=== PATIENT | female | born 1985 | race Two or more races ===

== ENCOUNTER → 2020-03-02 08:10 | Outpatient (BNVA) | payer OTHER, SELFPAY | PROVIDERS: PCP Family Medicine Geriatric Medicine; Visit Provider Surgery | DX: Z76.89 Persons encountering health services in other specified circumstances (principal) ==

== ENCOUNTER 2020-03-02 12:14 | Outpatient (REF) | payer OTHER, SELFPAY ==
--- NOTE | 2020-03-02 12:25 | ECG_ITS ---
Test Reason : CP Blood Pressure : / mmHG Vent. Rate : 070 BPM Atrial Rate : 070 BPM P-R Int : 128 ms QRS Dur : 096 ms QT Int : 406 ms P-R-T Axes : 038 010 016 degrees QTc Int : 438 ms Normal sinus rhythm Normal ECG No previous ECGs available Referred By: Dve Barlow Electronically Signed By:FRANCK BLAND MD
--- NOTE | 2020-03-02 12:45 | XR_ITS ---
EXAMINATION: XR CHEST CLINICAL INFORMATION: Multilobar obesity COMPARISON: None TECHNIQUE: 2 views of the chest were obtained. FINDINGS: No significant abnormality is noted involving the heart, lungs, mediastinum, bony thorax or soft tissues. XR/XR chest 2V IMPRESSION: No acute disease.
[2020-03-02 13:21] LABS: MANUAL DIFF FLAG NO
[2020-03-02 13:45] LABS: Basophils Percent Auto 0.4 % (0-2); Eosinophils Absolute Auto 0.2 X10*3/uL (0.0-0.4); Hematocrit 38.8 % (37-47); Hemoglobin 12.4 g/dl (12.0-16.0); Imm Gran Abs Auto 0.03 X10*3/uL (0.00-0.03); Imm Gran Pct Auto 0.3 % (0.0-0.4); Lymphocytes Absolute Auto 3.3 X10*3/uL (1.2-4.9); Lymphocytes Percent Auto 34.7 % (20-40); Mean Corpuscular Hemoglobin 28.2 pg (27.0-33.0); Mean Corpuscular Volume 88.2 fL (80-98); Mean Platelet Volume 11.1 fL (9.4-12.3); Monocytes Absolute Auto 0.7 X10*3/uL (0.1-1.2); Monocytes Percent Auto 7.4 % (2-11); Neutrophils Absolute Auto 5.2 X10*3/uL (2.0-8.3); Neutrophils Percent Auto 55.2 % (45-73); Platelet Count 280 X10*3/uL (160-400); Red Cell Distribution Width 13.2 % (11.0-16.0); White Blood Count 9.4 X10*3/uL (4.8-10.8)
[2020-03-02 13:49] LABS: Estimated Average Glucose 108 mg/dL; Hemoglobin A1c % 5.4 %
[2020-03-02 14:02] LABS: Alanine Aminotransferase 11 U/L (0-31); Albumin Level 3.9 g/dL (3.5-5.0); Alkaline Phosphatase 71 U/L (39-117); Anion Gap 12 (12-20); Aspartate Amino Transferase 16 U/L (5-31); Bilirubin Total 0.9 mg/dL (0.0-1.0); Blood Urea Nitrogen 12 mg/dL (9-16); C Reactive Protein 0.62 mg/dL (< or = 0.50); Calcium 8.8 mg/dL (8.4-10.2); Carbon Dioxide 28 mmol/L (22-29); Chloride 104 mmol/L (96-108); Cholesterol 221 mg/dL; Estimated Glomerular Filt Rate > 60; Glucose Random 94 mg/dL (60-115); HDL Cholesterol 54 mg/dL; LDL Cholesterol Calculated 152 mg/dl; Potassium 3.7 mmol/l (3.3-5.1); Sodium 140 mmol/L (135-145); Total Protein 6.9 g/dL (6.5-8.0); Triglycerides 78 mg/dL
[2020-03-02 14:26] LABS: Ferritin 9 ng/mL (10-122); Vitamin D 25-OH Total 20.8 ng/mL (>30)
[2020-03-02 14:27] LABS: TSH reflex Free T4 1.08 mIU/mL (0.32-4.0)
[2020-03-02 14:32] LABS: Folate 14.4 ng/mL (> or = 4.0); Vitamin B12 293 pg/mL (200-900)
[2020-03-03 12:08] LABS: Insulin Level Total 8.6 uIU/mL
[2020-03-03 16:52] LABS: Calcium (PTHI) 9.1 mg/dL (8.6-10.2); PTHI 69 pg/mL (14-64)
[2020-03-05 16:07] LABS: Zinc 64 mcg/dL (60-130)
[2020-03-07 06:33] LABS: Vitamin B1 8 nmol/L (8-30)
[2020-03-08 17:47] LABS: Vitamin A 32 mcg/dL (38-98)
== END 2020-03-02 12:15 | disposition home or self-care (01) ==
LOC: HO.LAB 12:14
PROVIDERS: Visit Provider Surgery
DX: E66.01 Morbid (severe) obesity due to excess calories (principal); J45.909 Unspecified asthma, uncomplicated; K21.9 Gastro-esophageal reflux disease without esophagitis
CPT/HCPCS: 36415; 71046; 80053; 80061; 82306; 82607; 82728; 82746; 83036; 83525; 83970; 84425; 84443; 84590; 84630; 85025; 86140; 93005

== ENCOUNTER → 2020-03-22 08:20 | Outpatient (BNVA) | payer OTHER, SELFPAY | PROVIDERS: Visit Provider Surgery ==

== ENCOUNTER → 2020-03-31 08:03 | Outpatient (BNVA) | payer OTHER, SELFPAY | PROVIDERS: Visit Provider Dietitian, Registered ==

== ENCOUNTER 2020-04-19 08:23 | Outpatient (REF) | payer OTHER, SELFPAY ==
--- NOTE | ~2020-04-19 | FL_ITS ---
EXAMINATION: XR GI SERIES CLINICAL INFORMATION: Obesity. History of gastric sleeve procedure. COMPARISON: None. TECHNIQUE: Upper GI was performed using thin and thick barium and effervescent granules. FINDINGS: Esophageal motility is normal. The stomach is normal appearing. Expected postsurgical changes to the stomach from gastric sleeve procedure is not appreciated. No fold thickening, mass, ulcer or stricture is seen. There is a small sliding-type hiatal hernia. There is a Schatzki ring. There is a small diverticulum as well. There is severe gastroesophageal reflux. FLUOROSCOPY TIME: 1.6 minutes. DOSE AREA PRODUCT: 20 Gy-cm2. TOTAL DOSE: 67 mGy. IMAGES: 37 saved fluoroscopic images. FL/FL upper GI series IMPRESSION: Normal-appearing stomach. Expected postsurgical changes to the stomach post gastric sleeve procedure not appreciated. Small sliding-type hiatal with Schatzki ring and small diverticulum. Severe gastroesophageal reflux.
--- NOTE | ~2020-04-19 | US_ITS ---
EXAMINATION: US COMPLETE ABDOMEN WITH LIVER ELASTOGRAPHY CLINICAL INFORMATION: Qmdusrqd-[id number]-pwjygk obesity due to excessive calories. COMPARISON: None. TECHNIQUE: Real-time imaging of the abdominal viscera. Noninvasive ultrasound liver fibrosis assessment is performed using Homero ElastPQ point quantification shear wave elastography (pSWE) with a C5-2 MHz transducer. Multiple elastography samples are obtained. FINDINGS: PANCREAS: Normal. The visualized pancreatic head and body are normal in appearance. The remainder of the pancreas is obscured from visualization by the overlying bowel gas. ABDOMINAL AORTA: The proximal, middle, and distal aortic segments are normal in caliber. INFERIOR VENA CAVA: Visualized portions are normal. LIVER: The liver demonstrates normal size, contour and echogenicity. No focal lesion or intrahepatic biliary duct dilatation. The right lobe measures 14.8 cm in length. The left lobe measures 10.7 cm in length. There is normal hepatopedal flow seen in the portal vein on Doppler exam. Shear wave liver elastography median stiffness is 1.14 m/s (reference: normal median stiffness is 1.3 m/s or less). IQR/median stiffness to assess sampling precision is 0.32 (reference: good quality data set is IQR/median stiffness of 0.15 or less). GALLBLADDER: Normal. The gallbladder is physiologically distended without evidence of stones, sludge, polyps, wall thickening, or pericholecystic fluid. COMMON BILE DUCT: Normal in caliber measuring 0.5 cm in diameter. RIGHT KIDNEY: Normal. No hydronephrosis. No renal calculi or focal parenchymal lesions. The kidney measures 10.8 cm in maximum dimension. LEFT KIDNEY: Normal. No hydronephrosis. No renal calculi or focal parenchymal lesions. The kidney measures 11.6 cm in maximum dimension. SPLEEN: Normal. The spleen measures 11.3 cm in maximum dimension. FREE FLUID: None. US/US abdomen comp w elastography IMPRESSION: 1. Unremarkable ultrasound abdomen. 2. Liver elastography: Median stiffness of 1.14. Normal. REFERENCE: Society of Radiologists in Ultrasound Liver Stiffness Thresholds (2019): LIVER STIFFNESS THRESHOLDS: *Liver Stiffness equal or less than 1.3 m/s: High probability of being normal. *Liver Stiffness less than 1.7 m/s: In the absence of other known clinical signs, rules out compensated advanced chronic liver disease. *Liver Stiffness 1.7-2.1 m/s: Suggestive of compensated advanced chronic liver disease but need further test for confirmation. *Liver Stiffness over 2.1 m/s: Rules in compensated advanced chronic liver disease. *Liver Stiffness over 2.4 m/s: Suggestive of clinically significant portal hypertension. QUALITY OF DATA SET: *IQR/Median value equal or less than 0.15 implies a quality data set. *IQR/Median value over 0.15 implies a poor quality data set. SIGNIFICANT CHANGE FROM PRIOR EXAM: Significant change if liver stiffness measurement is 10% or greater from prior exam. OTHER CONSIDERATIONS: The stage of liver fibrosis may be overestimated in the setting of acute hepatitis, liver inflammation, elevated liver function tests, hepatic vascular congestion, obstructive cholestasis, non-fasting state, and infiltrative diseases such as amyloidosis and lymphoma. In some patients with NAFLD, the liver stiffness thresholds for compensated advanced chronic liver disease may be lower. In causes other than viral hepatitis and NAFLD, liver stiffness thresholds are not well established.
== END 2020-04-19 08:24 | disposition home or self-care (01) ==
LOC: HO.US 08:23
PROVIDERS: Visit Provider Surgery
DX: Z01.818 Encounter for other preprocedural examination (principal); E66.01 Morbid (severe) obesity due to excess calories; K21.9 Gastro-esophageal reflux disease without esophagitis; J45.909 Unspecified asthma, uncomplicated
CPT/HCPCS: 74240; 76705; 76981

== ENCOUNTER → 2020-04-24 09:02 | Outpatient (BNVA) | payer OTHER, SELFPAY | PROVIDERS: Visit Provider Physician Assistant ==

== ENCOUNTER → 2020-04-25 08:18 | Outpatient (BNVA) | payer OTHER, SELFPAY | PROVIDERS: Visit Provider Dietitian, Registered ==

== ENCOUNTER 2020-04-27 08:37 | Outpatient (REF) | payer OTHER, SELFPAY ==
[2020-04-29 15:12] LABS: H Pylori Breath Test NOT DETECTED (NOT DETECTED)
== END 2020-04-27 08:38 | disposition home or self-care (01) ==
LOC: HO.LNP 08:37
PROVIDERS: Visit Provider Surgery
DX: Z11.0 Encounter for screening for intestinal infectious diseases (principal)
CPT/HCPCS: 83013; 99211

== ENCOUNTER → 2020-05-01 15:40 | Outpatient (BNVA) | payer OTHER, SELFPAY | PROVIDERS: Visit Provider Physician Assistant ==

== ENCOUNTER → 2020-05-08 16:07 | Outpatient (BNVA) | payer OTHER, SELFPAY | PROVIDERS: Visit Provider Physician Assistant ==

== ENCOUNTER → 2020-05-12 08:05 | Outpatient (BNVA) | payer OTHER, SELFPAY | PROVIDERS: Visit Provider Surgery ==

== ENCOUNTER 2020-05-18 08:11 | Day surgery (SDC) | payer OTHER, SELFPAY ==
--- NOTE | 2020-05-17 08:58 | HO.ANESPROP2 ---
Documented by User: Anabelle Pinto 05/17/20 08:59 HPI - Anesthesia Eval Consult details Narrative: 34yo F for Upper Endoscopy PMFSH Active Problems Active Problems: All Active Problems (Updated 05/12/20 @ 08:32 by Dev Barlow MD) Diaphragmatic hernia (Acute) Vitamin D deficiency (Acute) Vitamin B12 deficiency (Acute) GERD (gastroesophageal reflux disease) (Acute) Asthma (Acute) Morbid (severe) obesity due to excess calories (Acute) Past Medical History Medical History Asthma GERD (gastroesophageal reflux disease) Morbid (severe) obesity due to excess calories Sleep apnea Family History Family History Mother Depressed Anxiety Asthma Father No problems noted. Brother No problems noted. Brother Asthma Brother No problems noted. Son No problems noted. Daughter Asthma Anxiety Surgical History Surgical History History of sleeve gastrectomy Hx of appendectomy Hx of cholecystectomy Hx of tubal ligation Social History Social History Alcohol intake: never Smoking Status: Never smoker Use of substances other than those prescribed or required for medical reasons: No Advance Directives: No Advance Directives Information Provided: Yes Recently lost weight without trying: No Meds Allergies Allergy/AdvReac Type Severity Reaction Status Date / Time No Known Allergies Allergy Verified 03/02/20 10:48 Home Medications Medication Instructions Recorded Confirmed Last Taken Type albuterol sulfate 90 mcg/actuation 2 puff INHALATION Q6H PRN 03/02/20 03/02/20 Unknown History aerosol inhaler omeprazole 40 mg capsule,delayed 40 mg PO DAILY 03/02/20 03/02/20 Unknown History release Exam Exam Date and Time: May 17, 2020 0858 Narrative Narrative: EKG 02/2020 Vent. Rate : 070 BPM Atrial Rate : 070 BPM P-R Int : 128 ms QRS Dur : 096 ms QT Int : 406 ms P-R-T Axes : 038 010 016 degrees QTc Int : 438 ms Normal sinus rhythm Normal ECG No previous ECGs available Assessment and Plan Assessment Anesthesia Assessment: Chart Reviewed Documented by User: Jack Upton MD 05/18/20 09:30 PMFSH Past Medical History Medical History Asthma GERD (gastroesophageal reflux disease) Morbid (severe) obesity due to excess calories Sleep apnea Family History Family History Mother Depressed Anxiety Asthma Father No problems noted. Brother No problems noted. Brother Asthma Brother No problems noted. Son No problems noted. Daughter Asthma Anxiety Surgical History Surgical History History of sleeve gastrectomy Hx of appendectomy Hx of cholecystectomy Hx of tubal ligation Social History Social History Alcohol intake: never Smoking Status: Never smoker Use of substances other than those prescribed or required for medical reasons: No Advance Directives: No Advance Directives Information Provided: Yes Recently lost weight without trying: No Meds Allergies Allergy/AdvReac Type Severity Reaction Status Date / Time No Known Allergies Allergy Verified 03/02/20 10:48 Home Medications Medication Instructions Recorded Confirmed Last Taken Type albuterol sulfate 90 mcg/actuation 2 puff INHALATION Q6H PRN 03/02/20 03/02/20 Unknown History aerosol inhaler omeprazole 40 mg capsule,delayed 40 mg PO DAILY 03/02/20 03/02/20 Unknown History release Exam Airway Mallampati Class: I TM Dist: >3cm Neck ROM: Full Loose/Missing/Broken Teeth: Yes Heart: RRR Lungs: NL Assessment and Plan Assessment Anesthesia Assessment: Anesthesia Plan Discussed and Chart Reviewed Final Anesthetic Review NPO: Yes ASA Class: III Final Preanesthetic Review: No Changes in Pt Med Stat, Meds/Allgs Chart Reviewed, Consent Obtained/Reviewed and Anes Risks/Benef Reviewed Patient Risk: Intermediate Procedure Risk: Low Anesthetic Plan Anesthetic Plan: MAC: Disposition: Standard PACU
--- NOTE | 2020-05-18 00:09 | MHC.SHP ---
Pre-Procedural Eval Section A The patient is an INPATIENT: No The History & Physical has been completed within 30 days and I have reviewed it.: Yes Section B Chief Complaint: reflux disease Details of Present Illness: GERD Relevant Family History (Specify if Yes): No Relevant Social History: None Present Medications: see Short Stay Collaborative assessment Medical History: No relevant PMH History of Previous Operations: Relevant previous surgery/procedure and date(s) (Sleeve gastrectomy) Allergies: Allergies Allergy/AdvReac Type Severity Reaction Status Date / Time No Known Allergies Allergy Verified 03/02/20 10:48 Review of Systems Sugical H&P ROS: Negative: Constitution, Cardiovascular, Respiratory, Neurological, Psychiatric, Hem-Onc, Allergic/Immunologic, Gastrointestinal, Genitourinary, Musculoskeletal, Integumentary, Endocrine and Eyes/Ears/Nose/Throat Exam Surgical H&P Exam: Normal: HEENT, Normal: Heart, Normal: Lungs, Normal: Extremities, Normal: Abdomen, Normal: Skin and Normal: Neurological Plan Diagnosis/Plan: Unchanged (EGD to assess reflux) I have reviewed the history and physical and performed a pertinent physical examination on my patient. No changes have occurred unless specified.
[2020-05-18 08:26] VITALS: BMI 43.5
[2020-05-18 08:29] VITALS: BP 106/69; PULSE 67; RESP 16; TEMP 36.9; O2SAT 98
[2020-05-18 08:55] LABS: COVID-19 Test Negative (Negative)
[2020-05-18] MEDS: Lactated Ringers 1,000 ML 80 ML IVCONT (08:59)
[2020-05-18 10:12] VITALS: BP 121/68; PULSE 76; RESP 16; TEMP 36.5; O2SAT 100
--- NOTE | 2020-05-18 10:17 | PM.OP ---
Brief Operative Note Date of Service: 05/18/20 Pre-op diagnosis: GERD, s/p sleeve gastrectomy Post-op diagnosis: same (3cm hiatal hernia) Procedure: PROCEDURE DATE: 05/18/2020 PREOPERATIVE DIAGNOSIS: GERD, s/p sleeve gastrectomy POSTOPERATIVE DIAGNOSIS: Same as above. 1) small hiatal hernia PROCEDURE: Cuikeloj-lanaid-myqbvlweybsj with biopsies Surgeon: Alphonso Barlow M.D.. Ph.D. Computer Sciences Professor: None Anesthesia: IV sedation Estimated blood loss: Minimal FINDINGS AND PROCEDURE: OPERATIVE INDICATIONS: The patient is a 34 year old female known to me who underwent a laparoscopic sleeve gastrectomy. The patient had inadequate weight loss so far and complains of severe GERD. The patient was doing very well but has recently been complaining of GERD. Based on this information I recommended an upper endoscopy to evaluate the patient's symptoms. Risks and complications of the surgery were discussed with the patient in advance particularly the possibility of perforation or bleeding that may require surgical intervention. The patient understood the risks and was in agreement with the plan. PROCEDURE: After informed consent was obtained by the patient, the patient was transferred to the Operating Room and was placed in the supine position. After successful induction of IV sedation, a mouth block was inserted and the patient was placed in the left lateral decubitus position. An upper endoscopy was performed next, the oropharynx and esophagus appeared within the normal limits. There was a 3cm hiatal hernia. The z-line was smooth. Two biopsies were obtained from the distal esophagus 2-3 cm proximal to the GE junction and two additional biopsies from the GE junction. The sleeve was entered and it appeared to be of normal size. There was mild gastritis at distal antrum. There was no stricture or ulcer. Biopsies were obtained from the proximal sleeve as well as the distal antrum. No significant bleeding was noted from any of the biopsy sites. The scope was then advanced into the duodenum which appeared to be normal as well. At that point the duodenum and the sleeve were decompressed and the scope was withdrawn from the patient's mouth. The patient extubated and was transferred in stable condition to the Recovery Room for further care. I was present and performed all steps of the procedure. There were no residents to assist with this case. Alphonso Barlow M.D., Ph.D. Surgeon: Dev Barlow MD Anesthesia: MAC Estimated blood loss (mL): 0 IV fluids (mL): 300 Urine output (mL): 0 (No [place] to record) Pathology: other (1) GEJ x2, distal esophagus x2, sleeve x1, antrum x1) Condition: stable Disposition: PACU
[2020-05-18 10:37] VITALS: BP 123/68; PULSE 66; RESP 18; TEMP 36.3; O2SAT 99
== END 2020-05-18 11:17 | disposition home or self-care (01) ==
PROVIDERS: Visit Provider Surgery
PROC: 0DJ08ZZ Inspection of Upper Intestinal Tract, Via Natural or Artificial Opening Endoscopic (ICD-10-PCS; CPT 43235; principal; 2020-05-18 09:20)
DX: K21.9 Gastro-esophageal reflux disease without esophagitis (principal); K44.9 Diaphragmatic hernia without obstruction or gangrene; K20.0 Eosinophilic esophagitis; E66.01 Morbid (severe) obesity due to excess calories; E55.9 Vitamin D deficiency, unspecified; E53.8 Deficiency of other specified B group vitamins; Z98.84 Bariatric surgery status; J45.909 Unspecified asthma, uncomplicated; Z90.49 Acquired absence of other specified parts of digestive tract; Z79.899 Other long term (current) drug therapy
CPT/HCPCS: 43239; 36415; 87635; 88305; 88342

== ENCOUNTER → 2020-06-02 08:19 | Outpatient (BNVA) | payer OTHER, SELFPAY | PROVIDERS: Visit Provider Surgery ==

== ENCOUNTER → 2020-07-03 08:15 | Outpatient (BNVA) | payer OTHER, SELFPAY | PROVIDERS: Visit Provider Surgery ==

== ENCOUNTER → 2020-09-11 07:41 | Outpatient (BNVA) | payer OTHER, SELFPAY | PROVIDERS: Visit Provider Surgery ==

== ENCOUNTER → 2020-09-29 08:52 | Outpatient (BNVA) | payer OTHER, SELFPAY | PROVIDERS: Visit Provider Physician Assistant ==

== ENCOUNTER 2020-10-10 02:36 | Inpatient (IN) | payer OTHER, SELFPAY ==
[2020-09-29 12:43] LABS: MANUAL DIFF FLAG NO
[2020-09-29 12:56] LABS: Basophils Percent Auto 0.5 % (0-2); Eosinophils Absolute Auto 0.2 X10*3/uL (0.0-0.4); Hematocrit 42.5 % (37-47); Hemoglobin 13.7 g/dl (12.0-16.0); Imm Gran Abs Auto 0.02 X10*3/uL (0.00-0.03); Imm Gran Pct Auto 0.3 % (0.0-0.4); Lymphocytes Absolute Auto 2.7 X10*3/uL (1.2-4.9); Lymphocytes Percent Auto 36.9 % (20-40); Mean Corpuscular HGB Conc 32.2 g/dl (31.0-35.0); Mean Corpuscular Hemoglobin 28.8 pg (27.0-33.0); Mean Corpuscular Volume 89.5 fL (80-98); Mean Platelet Volume 11.5 fL (9.4-12.3); Monocytes Absolute Auto 0.6 X10*3/uL (0.1-1.2); Monocytes Percent Auto 7.5 % (2-11); Neutrophils Absolute Auto 3.9 X10*3/uL (2.0-8.3); Neutrophils Percent Auto 52.8 % (45-73); Platelet Count 267 X10*3/uL (160-400); Red Blood Count 4.75 X10*6/uL (4.20-5.50); Red Cell Distribution Width 14.1 % (11.0-16.0); White Blood Count 7.4 X10*3/uL (4.8-10.8)
[2020-09-29 12:58] LABS: INTERNATIONAL NORM RATIO 1.2 (0.9-1.1); Prothrombin Time 13.1 SEC (9.9-13.0)
[2020-09-29 13:00] LABS: Estimated Average Glucose 105 mg/dL; Hemoglobin A1c % 5.3 %
[2020-09-29 13:01] LABS: Partial Thromboplastin Time 35.4 SEC (24.1-38.0)
[2020-09-29 13:28] LABS: Alanine Aminotransferase 17 U/L (0-31); Albumin Level 4.2 g/dL (3.5-5.0); Alkaline Phosphatase 71 U/L (39-117); Anion Gap 14 (12-20); Aspartate Amino Transferase 17 U/L (5-31); Bilirubin Total 1.2 mg/dL (0.0-1.0); Blood Urea Nitrogen 11 mg/dL (9-16); C Reactive Protein 0.64 mg/dL (< or = 0.50); Calcium 9.5 mg/dL (8.4-10.2); Carbon Dioxide 25 mmol/L (22-29); Chloride 104 mmol/L (96-108); Cholesterol 222 mg/dL; Estimated Glomerular Filt Rate > 60; Glucose Random 94 mg/dL (60-115); HDL Cholesterol 40 mg/dL; LDL Cholesterol Calculated 165 mg/dl; Sodium 139 mmol/L (135-145); Total Protein 7.4 g/dL (6.5-8.0); Triglycerides 86 mg/dL
[2020-09-29 13:48] LABS: TSH reflex Free T4 1.28 uIU/mL (0.32-4.0)
[2020-10-02 17:57] LABS: Insulin Level Total 4.1 uIU/mL
[2020-10-03 08:58] VITALS: BMI 38.6
--- NOTE | 2020-10-09 08:47 | P.CONAN_ITS ---
Documented by User: Anabelle Pinto NP 10/09/20 08:48 HPI - Anesthesia Eval Consult details Narrative: 35yo F for Gastric Bypass Laparoscopic, possible diaphragmatic hernia,possible ventral hernia,possible open s/p gastric sleeve 2014 [facility] Active Problems Active Problems: All Active Problems (Updated 10/03/20 @ 08:37 by Anna Torrez, JB) Vitamin B12 deficiency (Acute) Vitamin D deficiency (Acute) Diaphragmatic hernia (Acute) Esophagitis determined by biopsy (Acute) Iron deficiency (Acute) Obesity (Acute) BMI 39.0-39.9,adult (Acute) Preprocedural examination (Acute) GERD (gastroesophageal reflux disease) (Acute) Asthma (Acute) Morbid (severe) obesity due to excess calories (Acute) Past Medical History Medical History (Updated 10/10/20 @ 07:34 by Jessi Arellano MD) Asthma COVID-19 vaccine series completed GERD (gastroesophageal reflux disease) Morbid (severe) obesity due to excess calories Sleep apnea Family History Family History Mother Depressed Anxiety Asthma Father No problems noted. Brother No problems noted. Brother Asthma Brother No problems noted. Son No problems noted. Daughter Asthma Anxiety Surgical History Surgical History (Updated 10/10/20 @ 07:35 by Jessi Arellano MD) H/O: History of esophagogastroduodenoscopy (EGD) History of sleeve gastrectomy Hx of appendectomy Hx of cholecystectomy Hx of dilation and curettage Hx of tubal ligation Social History Social History Are you a primary rn patient care to a significant other at home: Yes (Child 3 yrs old) Do you presently have visiting nurse or other home services: No Alcohol intake: never Patient Tobacco Use Status: Former Tobacco user Use of substances other than those prescribed or required for medical reasons: No Have you been hit, kicked, punched, or otherwise hurt by someone within the past year? If so, by whom?: No Are you DNR?: No Advance Directives: No Advance Directives Information Provided: No Advance Directives on File: No Patient : No FDLMP: 01/2020 : No Poor oral hygiene: No Meds Allergies Allergy/AdvReac Type Severity Reaction Status Date / Time No Known Allergies Allergy Verified 10/10/20 06:34 Home Medications Medication Instructions Recorded Confirmed Last Taken Type albuterol sulfate 90 mcg/actuation 2 puff INHALATION Q6H PRN 03/02/20 10/02/20 Unknown History aerosol inhaler omeprazole 40 mg capsule,delayed 40 mg PO DAILY 03/02/20 09/11/20 Unknown History release Exam Exam Date and Time: October 09, 2020 0847 Height,Weight and Vital Signs: Height 5 ft 3 in Weight 98.883 kg Pertinent Lab Results Pertinent Lab Results: Laboratory Tests 09/29/20 09/29/20 09/29/20 11:34 11:34 11:34 WBC 7.4 RBC 4.75 Hgb 13.7 Hct 42.5 MCV 89.5 MCH 28.8 MCHC 32.2 RDW 14.1 Plt Count 267 MPV 11.5 Immature Gran % (Auto) 0.3 Neut % (Auto) 52.8 Lymph % (Auto) 36.9 [place] % (Auto) 7.5 Eos % (Auto) 2.0 Baso % (Auto) 0.5 Lymph # (Auto) 2.7 [place] # (Auto) 0.6 Eos # (Auto) 0.2 Baso # (Auto) 0.0 Abs Immat Gran (auto) 0.02 Absolute Neuts (auto) 3.9 Absolute Nucleated RBC 0.000 Nucleated RBC % (auto) 0.0 PT 13.1 H INR 1.2 H APTT 35.4 Sodium 139 Potassium 4.0 Chloride 104 Carbon Dioxide 25 Anion Gap 14 BUN 11 Creatinine 0.91 Estim Creat Clear Calc TNP Estimated GFR > 60 Random Glucose 94 Estimat Average Glucose Hemoglobin A1c % Total Insulin Calcium 9.5 D Total Bilirubin 1.2 H AST 17 ALT 17 Alkaline Phosphatase 71 C-Reactive Protein 0.64 H Total Protein 7.4 Albumin 4.2 Triglycerides 86 Cholesterol 222 LDL Cholesterol, Calc 165 HDL Cholesterol 40 D TSH 1.28 Blood Type Antibody Screen 09/29/20 09/29/20 09/29/20 11:34 11:34 11:38 WBC RBC Hgb Hct MCV MCH MCHC RDW Plt Count MPV Immature Gran % (Auto) Neut % (Auto) Lymph % (Auto) [place] % (Auto) Eos % (Auto) Baso % (Auto) Lymph # (Auto) [place] # (Auto) Eos # (Auto) Baso # (Auto) Abs Immat Gran (auto) Absolute Neuts (auto) Absolute Nucleated RBC Nucleated RBC % (auto) PT INR APTT Sodium Potassium Chloride Carbon Dioxide Anion Gap BUN Creatinine Estim Creat Clear Calc Estimated GFR Random Glucose Estimat Average Glucose 105 Hemoglobin A1c % 5.3 Total Insulin 4.1 Calcium Total Bilirubin AST ALT Alkaline Phosphatase C-Reactive Protein Total Protein Albumin Triglycerides Cholesterol LDL Cholesterol, Calc HDL Cholesterol TSH Blood Type A Positive Antibody Screen NEGATIVE Narrative Narrative: EKG 05/2020 Vent. Rate : 070 BPM ? ? Atrial Rate : 070 BPM ?? P-R Int : 128 ms? QRS Dur : 096 ms ? ? QT Int : 406 ms ? ? ? P-R-T Axes : 038 010 016 degrees ?? QTc Int : 438 ms ? Normal sinus rhythm Normal ECG No previous ECGs available Assessment and Plan Assessment Anesthesia Assessment: Chart Reviewed Documented by User: Jack Upton MD 10/10/20 07:37 [facility] Past Medical History Medical History (Updated 10/10/20 @ 07:34 by Jessi Arellano MD) Asthma COVID-19 vaccine series completed GERD (gastroesophageal reflux disease) Morbid (severe) obesity due to excess calories Sleep apnea Family History Family History Mother Depressed Anxiety Asthma Father No problems noted. Brother No problems noted. Brother Asthma Brother No problems noted. Son No problems noted. Daughter Asthma Anxiety Surgical History Surgical History (Updated 10/10/20 @ 07:35 by Jessi Arellano MD) H/O: History of esophagogastroduodenoscopy (EGD) History of sleeve gastrectomy Hx of appendectomy Hx of cholecystectomy Hx of dilation and curettage Hx of tubal ligation Social History Social History Are you a primary rn patient care to a significant other at home: Yes (Child 3 yrs old) Do you presently have visiting nurse or other home services: No Alcohol intake: never Patient Tobacco Use Status: Former Tobacco user Use of substances other than those prescribed or required for medical reasons: No Have you been hit, kicked, punched, or otherwise hurt by someone within the past year? If so, by whom?: No Are you DNR?: No Advance Directives: No Advance Directives Information Provided: No Advance Directives on File: No Patient : No FDLMP: 01/2020 : No Poor oral hygiene: No Meds Allergies Allergy/AdvReac Type Severity Reaction Status Date / Time No Known Allergies Allergy Verified 10/10/20 06:34 Home Medications Medication Instructions Recorded Confirmed Last Taken Type albuterol sulfate 90 mcg/actuation 2 puff INHALATION Q6H PRN 03/02/20 10/02/20 Unknown History aerosol inhaler omeprazole 40 mg capsule,delayed 40 mg PO DAILY 03/02/20 09/11/20 Unknown History release Exam Airway Mallampati Class: II TM Dist: >3cm Neck ROM: Full Loose/Missing/Broken Teeth: No Heart: RRR Assessment and Plan Assessment Anesthesia Assessment: Anesthesia Plan Discussed Final Anesthetic Review NPO: Yes ASA Class: III Final Preanesthetic Review: No Changes in Pt Med Stat, Meds/Allgs Chart Reviewed, Consent Obtained/Reviewed and Anes Risks/Benef Reviewed Patient Risk: Intermediate Procedure Risk: Low Anesthetic Plan Anesthetic Plan: GA Disposition: Standard PACU
--- NOTE | 2020-10-09 20:39 | MHC.SHP ---
Pre-Procedural Eval Section A Date of Service: 10/09/20 The patient is an INPATIENT: Yes The History & Physical has been completed within 30 days and I have reviewed it.: No Section B Chief Complaint: morbid obesity Relevant Family History (Specify if Yes): No Relevant Social History: None Present Medications: None Medical History: Significant History (GERD) History of Previous Operations: Relevant previous surgery/procedure and date(s) (sleeve gastrectomy) Allergies: Allergies Allergy/AdvReac Type Severity Reaction Status Date / Time No Known Allergies Allergy Verified 10/02/20 16:37 Review of Systems Sugical H&P ROS: Negative: Constitution, Cardiovascular, Respiratory, Neurological, Psychiatric, Hem-Onc, Allergic/Immunologic, Gastrointestinal, Genitourinary, Musculoskeletal, Integumentary, Endocrine and Eyes/Ears/Nose/Throat Exam Surgical H&P Exam: Normal: HEENT, Normal: Heart, Normal: Lungs, Normal: Extremities, Normal: Abdomen, Normal: Skin and Normal: Neurological Plan Diagnosis/Plan: Unchanged I have reviewed the history and physical and performed a pertinent physical examination on my patient. No changes have occurred unless specified.
[2020-10-10] VITALS (12 sets, daily range): BP systolic 127–154; BP diastolic 70–89; PULSE 74–95; RESP 16–20; TEMP 36.2–37.6; O2SAT 98–100
--- NOTE | ~2020-10-10 | FL_ITS ---
EXAMINATION: FL UPPER GI GASTROGRAFIN STUDY CLINICAL INFORMATION: Postop day 1 status post gastric bypass. COMPARISON: Upper GI 04/18/2020. TECHNIQUE: Routine upright Gastrografin upper GI exam was performed with 50/50 dilution. FINDINGS: Following oral administration of dilute Gastrografin, there is normal propagation of bolus from the oral cavity through the pharynx and the esophagus, into the small stomach and immediately into the small bowel loops without obstruction or narrowing. Post gastric bypass surgical changes with a Maori drainage catheter noted in the left epigastric region. No extravasation of Gastrografin seen. FLUOROSCOPY TIME: 0.9 minutes. DOSE AREA PRODUCT: 14.511 Gy-cm2. FL/FL upper GI w gastrografin IMPRESSION: Widely patent GE junction and gastrojejunal anastomosis status post gastric bypass. No extravasation seen. There is a Maori drainage catheter in the left epigastric region.
[2020-10-10 06:34] LABS: UPreg QC Valid YES; Urine Pregnancy NEGATIVE (NEGATIVE)
[2020-10-10 06:45] LABS: COVID-19 Test Negative (Negative)
[2020-10-10] MEDS: Lactated Ringers 1,000 ML 100 ML IVCONT (07:00)
[2020-10-10] MEDS: Lactated Ringers 1,000 ML 999 ML IV (07:00)
--- NOTE | 2020-10-10 12:14 | P.BOP_ITS ---
Brief Operative Note Date of Service: 10/10/20 Pre-op diagnosis: Severe obesity and comorbidities (see below) Post-op diagnosis: same (abdominal adhesions) Procedure: COMORBIDITIES: severe obesity with a BMI of 37.8 kg/m2, GERD, asthma, sleep apnea, diaphragmatic hernia Procedure: PROCEDURE: Upper endoscopy, extensive laparoscopic lysis of adhesions, diaphragmatic hernia repair, gastrectomy and laparoscopic Paco-en-Y gastric bypass with a total bypassed intestinal limb of 155cm INDICATIONS: This is a 35 year-old female with an initial BMI of 44.4 kg/m2 and associated comorbid conditions as described previously. After appropriate workup was performed and a 33.8lbs weight loss was achieved reducing the BMi to 37.8 kg/m2,, the patient was electively scheduled for laparoscopic, possibly open, gastric bypass. The risks and complications of the procedure were discussed with the patient in advance, particularly the possibility of ; pulmonary embolism; anastomotic leak; bleeding; bowel obstruction; cardiac, pulmonary, or renal complications; as well as long-term problems such as insufficient weight loss, vitamin deficiency, anastomotic strictures, or ulcers. The patient understood all the risks, and was in agreement to proceed with surgery. DESCRIPTION OF PROCEDURE: After informed consent was obtained from the patient, the patient was given preoperative antibiotics, and was transferred to the operating room. After successful induction of general anesthesia, a Stover catheter and pneumatic compressive devices were placed on both lower extremities. An upper endoscopy was performed next. The oropharynx and esophagus appeared to be within normal limits. There was a diaphragmatic hernia present consistent with the findings of the preoperative upper GI. The sleeve was entered. There was redundancy of the proximal sleeve laterally. Then after all fluid and air were suctioned and the stomach was fully decompressed, the scope was withdrawn and secured in the mid esophagus. The patient was then prepped and draped in the usual sterile manner, and abdominal access was established at the right upper quadrant with the Jacinto technique. A 12 mm blunt port was inserted, and the abdomen was insufflated with CO2 to a pressure of 15 mmHg. Under direct visualization, additional ports were placed, specifically a 5 and a 12 mm Versi-Step port, to the left and right of the umbilicus, two 5 mm ports to the left upper quadrant, and a 5 mm Versi-Step port to the right upper quadrant. Using the EndoClose suture passer device, I placed a #1 Polysorb tie across the falciform ligament in order to retract it up against the abdominal wall and prevent injury of the ligament with our instruments during the procedure. Following that, the patient was placed in a steep reverse Trendelenburg position. An additional 5 mm port was placed to the right flank for the Mediflex retractor that was used to retract the left lobe of the liver. There was adhesions between the previous sleeve and the greater omentum. Those w ere lysed with the Sonicbeat all the way to the GE junction. There were also posterior retrogastric adhesions that were also lysed and the sleeve was completely freed all the way to the lesser omentum. Adhesiolysis required 1 hour to complete. There was an obvious significant-sized hiatal hernia. I continued dissecting along the hiatus toward the left quintin and the angle of His. I fully mobilized the fat pad that was incarcerated in the hernia. I then continued by dissecting even further into the posterior retro-esophageal space all the way to the angle of His. I continued to mobilize the esophagus into the mediastinum circumferentially. Both vagal nerves were seen and preserved. At that point, I was able to have at least 3 to 5 cm of esophagus into the abdomen.? After I completely mobilized the esophagus from both the left and right quintin and I had a good mobilization of the esophagus circumferentially, I closed the hernia defect with three interrupted #0 Surgidac sutures using the Endo Stitch device, which two of which were placed posterior and one anterior to the esophagus. ? Adhesions on the anterior aspect of the sleeve at the area of planned resection were also freed so I can be able to identify better the stomach as well as the previous sleeve's staple line. The lesser omentum was divided with an Endo NIDHI-45 articulating wen load. A gastric pouch was created by resecting the previous sleeve transversely with Endo-NIDHI 60 purple load. The transection was made carefully to make sure that transection was appropriately oriented in relation to the previous sleeve's staple line to make sure that ischemic areas between stapler lines are not created. A second NIDHI-45 purple load was used to perform a sleeve resection of the proximal sleeve as it was redundant. A partial sleeve gastrectomy of the distal sleeve was also performed with another NIDHI-60 purple load. The staple line of the distal sleeve was reinforced with clips. Specimen was retrieved from the Jacinto port. The patient was then placed in supine position, and after we retracted the transverse colon and the omentum cephalad, we identified the ligament of Treitz. I counted 50 cm from the ligament of Treitz, and the small bowel and the mesentery were divided with an Endo NIDHI-60 white load. Using the ultrasonic device, we opened the peritoneum at the root of the mesentery further to gain extra mobility. A clip was used to sallie the proximal end of the divided bowel, the bilio-pancreatic end, which was run back to the ligament of Treitz to confirm that we had marked the correct side and I had done so. I then developed the mesocolic window slightly to the left and superior to the ligament of Treitz using the ultrasonic device. The apex of the Paco limb was identified. Following that, I grasped the apex of the Paco limb with an articulating bowel grasper, and after I made sure there was no twisting of the mesentery, it was delivered in a retrocolic, retrogastric fashion through the mesocolic window which I had previously made. Following that, I noted there was no tension between the gastric pouch and the Paco limb. Enterotomies were made at the apex of the pouch and the Paco limb, and the gastro-jejunostomy was made with an Endo NIDHI-45 ca load measured to be 4.5 cm in diameter. The enterotomy was closed using the Endo Stitch device in one layer of running 2-0 Polysorb suture in a Casi fashion starting from each corner of the enterotomy and tying the two ends together in the center of the enterotomy. The Paco limb was clamped with a bowel clamp approximately 15 cm from the gastro-jejunostomy, and a leak test was performed by submerging the anastomosis in saline and insufflating air off the scope into the pouch. There was no narrowing of the GE junction.? There was no air leak during the test. There was no significant ischemia of the mucosa of the gastric pouch or Paco limb. There was no bleeding from the suture or staple lines of the anastomosis, as well as the staple line of the gastric pouch which was clearly seen in its entirety. In addition, the anastomosis was patent, and we easily advanced the scope into the proximal Paco limb. With the scope pulled back at the esophagus, we reinforced the anastomosis circumferentially with multiple interrupted 2-0 Polysorb sutures in a Lembert type fashion using the Endo Stitch device. At that point, I pulled the endoscope back to the esophagus while we were decompressing the Paco limb and gastric pouch from any remaining air. At that point, the patient was placed in supine position, and after we reduced the Paco limb back into the abdomen, I counted 165 cm from the gastro- jejunostomy. An enterotomy was made there with the ultrasonic device. After a similar enterotomy was made at the apex of the bilio-pancreatic limb, the jejuno-jejunostomy was made with an Endo NIDHI-60 white load. The enterotomy was closed with another Endo NIDHI-60 white load after appropriate alignment with four interrupted 2-0 Surgidac sutures. Two anti-obstruction sutures were placed next between the staple line of the bilio-pancreatic limb and the mesentery of the Paco limb distal from the anastomosis to prevent kinking of the anastomosis. We then closed the small bowel mesenteric defect in a running fashion using a running 2-0 Surgidac suture using the EndoStitch device. I checked the anastomosis at the end. The jejuno-jejunostomy was patent. The Paco limb was not narrowed. The staple lines were intact, viable, without evidence of any ischemia, bleeding, or any open areas, and the entire anastomosis was sitting nicely without tension, narrowing, or kinking. I then closed the Camacho's defect with one interrupted 2-0 Surgidac suture in a U-type fashion and then the mesocolic defect with four interrupted 2-0 Sofsilk sutures in a U-type fashion.? The Paco limb was clamped 20 cm inferior to the mesocolic window and another endoscopy was performed. I could easily pass the gastroscope through the gastro-jejunostomy and mesocolic window without any narrowing, kinking, or evidence of bleeding or ischemia. At that point the gastroscope was withdrawn from the patient?s mouth while we were decompressing the bowel and the stomach from any remaining air. I ran back the Paco limb from the mesocolic window to the jejuno-jejunostomy which appeared to be normal without any twisting or kinking. All blood clots were suctioned. We carefully positioned the transverse colon epiploic appendages to the root of the small bowel mesentery to prevent any adhesions between them and the anastomosis that could lead to an internal hernia. I then placed the patient back in a steep reverse Trendelenburg position. I looked into the lesser sac to see how the Paco limb was situating and it was situating well. There was no bleeding from the suture lines of the remnant, angle of His, and gastric pouch, as well as from the mesentery of the Paco limb. At this point I placed a 10 mm AYAD drain underneath the gastro-jejunostomy and we secured the skin level with an #0 Sofsilk suture. The Mediflex retractor was removed, and the undersurface of the liver was inspected and there was no bleeding. The patient was placed in supine position. I closed the fascial defect of periumbilical 12 mm port site laparoscopically with the EndoClose suture passer device using #1 Polysorb suture and a #1 Polysorb suture in a figure of eight fashion for the Jacinto port. Then 100 cc 0.25 % Marcaine and 1% lidocaine plain were used to infiltrate both fascial closures as well as all skin incisions. At this point, the abdomen was deflated, all ports were removed under direct vision, and no bleeding was noted from any of the port sites. The skin incisions were irrigated with saline and were closed with 4-0 absorbable monofilament sutures. Steri-Strips and OpSites were used to cover all incisions. The patient was extubated and was transferred in stable condition to the recovery room for further care. I was present and performed all ricardo parts of the procedure. Ms. Bates was the learning support assistant. There were no residents to assist with this case. Alphonso Barlow MD, PhD, FACS ReplyForward Surgeon: Dev Barlow MD Anesthesia: GETA, local and other (TAP block) Was an Program Director Substance Abuse used for this Procedure?: No Program Director Substance Abuse: Elsa Bates Estimated blood loss (mL): 10 IV fluids (mL): 3,500 Urine output (mL): 75 Pathology: other (stomach) Condition: stable Disposition: PACU
--- NOTE | 2020-10-10 12:29 | PM.PNGS ---
Subjective Subjective Date of Service: 10/11/20 Interval history: Patient has mild incisional pain but was able to ambulate and use the incentive spirometer. Physical Exam Vital Signs: Vital Signs: Last Vital Signs Temp 97.9 F 10/10/20 12:15 Pulse 84 10/10/20 12:20 Resp 18 10/10/20 12:20 BP 133/79 10/10/20 12:20 Pulse Ox 100 10/10/20 12:20 Body Mass Index 38.6 GI: Inspection: Yes normal to inspection, Yes incision (clean, dry and intact) and Yes obesity Extrem: Right lower extremity: normal to inspection (no calf tenderness) Left lower extremity: normal to inspection (no calf tenderness) Procedures Date of Service Date of Service: 10/11/20 Progress Note: A&P Assessment and plan (1) Obesity: Status: Acute (2) BMI 37.0-37.9, adult: Status: Acute (3) S/P gastric bypass: Status: Acute Assessment and Plan: s/p laparoscopic lysis of adhesions, diaphragmatic hernia repair, gastrectomy and Paco-en-Y gastric bypass Doing well Check am labs and UGI. If OK, will d/c Stover and begin phase 1 bariatric diet (4) Status post repair of paraesophageal diaphragmatic hernia: Status: Acute (5) Diaphragmatic hernia: Status: Acute (6) Esophagitis determined by biopsy: Status: Acute (7) GERD (gastroesophageal reflux disease): Status: Acute (8) Asthma: Status: Acute (9) Intra-abdominal adhesions: Status: Acute Fall Risk Details Current Medications: Current Medications Generic Name Dose Route Start Last Admin Trade Name Freq PRN Reason Stop Dose Admin Albuterol Sulfate 2.5 mg 10/10/20 05:59 Albuterol Sulfate (0.083%) 2.5 Mg/3 Ml Vial.Neb INHALE ONCE PRN Shortness of Breath/Wheezing Hydromorphone HCl 0.5 mg 10/10/20 07:37 Hydromorphone Hcl 0.5 Mg/0.5 Ml Syringe IVPUSH Q5M PRN Pain, Severe (Pain Scale 7-10) Protocol Lactated Ringer's 1,000 mls @ 100 mls/hr 10/10/20 06:00 10/10/20 07:00 Lr IVCONT 100 mls/hr .Q10H MARIJA Administration Promethazine HCl 12.5 mg/ 50.5 mls @ 202 mls/hr 10/10/20 07:37 Sodium Chloride IV ONCE PRN Nausea and Vomiting Ondansetron HCl 4 mg 10/10/20 07:37 Ondansetron Hcl 4 Mg/2 Ml Vial IVPUSH ONCE PRN Nausea and Vomiting Time Spent With Patient Time: Total time spent is greater than 50% in coordination of care (as documented) at patient's floor/unit and/or counseling patient: Time with patient: less than 15 minutes Quality Stroke Does the patient have a stroke diagnosis?: No VTE Prior VTE?: No VTE Risk Level:: Surgical - moderate VTE Device Contraindication: N/A - Device Ordered VTE Drug Contraindication: Treatment Not Indicated
[2020-10-10] MEDS: Famotidine/PF 20 MG/2 ML VIAL IVPUSH ×2 (13:21→21:19)
[2020-10-10 13:32] LABS: Hematocrit 42.2 % (37-47)
[2020-10-10] MEDS: Lactated Ringers 1,000 ML 150 ML IVCONT ×2 (13:32→21:24)
[2020-10-10 14:01] LABS: Anion Gap 18 (12-20); Blood Urea Nitrogen 8 mg/dL (9-16); Calcium 8.9 mg/dL (8.4-10.2); Carbon Dioxide 18 mmol/L (22-29); Chloride 105 mmol/L (96-108); Creatinine Clr Calc Pharmacy 96.8; Estimated Glomerular Filt Rate > 60; Glucose Random 157 mg/dL (60-115); Potassium 4.5 mmol/L (3.3-5.1); Sodium 136 mmol/L (135-145)
--- NOTE | 2020-10-10 14:56 | PM.DS ---
DS: Providers Provider Date of Service: 10/11/20 Date of admission: 10/10/20 02:36 Primary care physician: None Physician DS: Diagnosis Discharge Diagnosis (1) Obesity: Status: Acute (2) BMI 37.0-37.9, adult: Status: Acute (3) S/P gastric bypass: Status: Acute (4) Status post repair of paraesophageal diaphragmatic hernia: Status: Acute (5) Diaphragmatic hernia: Status: Acute (6) Esophagitis determined by biopsy: Status: Acute (7) GERD (gastroesophageal reflux disease): Status: Acute (8) Asthma: Status: Acute (9) Intra-abdominal adhesions: Status: Acute DS: Medications Discharge Medications Home Medications: Home Medications Medication Instructions Recorded Confirmed albuterol sulfate 90 mcg/actuation 2 puff INHALATION Q6H PRN 03/02/20 10/02/20 aerosol inhaler omeprazole 40 mg capsule,delayed 40 mg PO DAILY 03/02/20 09/11/20 release Previous Rx's Medication Instructions Recorded cholecalciferol (vitamin D3) 125 125 mcg PO DAILY #30 cap 04/19/20 mcg (5,000 unit) capsule mecobalamin (vitamin B12) 1,000 1,000 mcg SUBLINGUAL DAILY #30 tab 04/19/20 mcg disintegrating tablet,sublingual pantoprazole 40 mg tablet,delayed 40 mg PO DAILY #30 tab 06/19/20 release iron,carbonyl 65 mg-vitamin C 125 1 tab PO DAILY #30 tab 06/25/20 mg tablet,delayed release (Vitron-C) ondansetron HCl 4 mg tablet 4 mg PO Q12H #20 tab 09/11/20 (Zofran) polyethylene glycol 3350 17 gram 17 g PO DAILY #14 ea 09/11/20 oral powder packet (Miralax) sucralfate 100 mg/mL oral 10 ml PO BID #400 ml 09/11/20 suspension DS: Summary Hospital Course Hospital Course: ADMITTING DIAGNOSIS: Refractory morbid obesity with a BMI of X kg/m2 and associated co-morbid conditions including hx of sleeve gastrectomy, GERD, asthma, VERNON. DISCHARGE DIAGNOSIS: s/p conversion of LSG to gastric by pass, repair of diaphragmatic hernia Past surgical history: sleeve gastrectomy, appendectomy, cholecystectomy, tubal ligation PROCEDURE: Ceviufam-pcokza-tycnxdzomuq and laparoscopic Paco-en-Y gastric bypass from previous sleeve gastrectomy, ABDI and repair of diaphragmatic hernia DISCHARGE SUMMARY: HISTORY OF PRESENT ILLNESS: The patient is a 35year-old woman with a BMI of 44.2 kg/m2 and associated co-morbidities as described previously. The patient had extensive preoperative work-up, lost 25.8 lbs preoperatively and was electively scheduled for laparoscopic, possible open gastric bypass. Risks and complications of the surgery were discussed with the patient in advance, particularly the possibility of , pulmonary embolism, anastomotic leak, bleeding, bowel injury, GERD, cardiac, renal or pulmonary complications. The patient understood all the risks and was in agreement with the surgical plan. HOSPITAL COURSE: The patient underwent uneventful conversion of sleeve gastrectomy tolaparoscopic Paco-en-Y gastric bypass and repair of diaphragmatic hernia on the day of admission. Postoperatively, the patient was transferred to the surgical floor on a monitored bed and hemoglobin during the first 8 hours remained stable at mg/dl. The patient was on IV Acetaminophen and dilaudid for pain control. On postoperative day one, the patient was feeling well without nausea, vomiting, fevers, or tachycardia. The patient had some mild incisional pain. The abdomen was soft. UGI showed no leak or obstruction. The patient was started on 1 ounce of water or ice every half hour. The Stover was discontinued. During the first day, the patient did fairly well, having some incisional pain, but able to ambulate adequately and to tolerate liquids well. Since the patient is doing well, we decided that the patient was ready to be discharged. The patient was given instructions to follow-up with me next week and to call my office for any fever over 101, persistent abdominal pain, nausea, vomiting, change in the color of the AYAD fluid, symptoms of DVT such as calf tenderness, or leg swelling, or pulmonary embolism such as chest pain or shortness of breath. The patient was also instructed to drink 40-60 ounces of liquids per day using the 1-ounce cups. The patient was given prescription for Tylenol for pain, Zofran prn for nausea, pantoprazole and carafate. The patient was encouraged to ambulate and use the incentive spirometry. The patient was allowed to shower, but no baths, and encouraged to stay active at home. All of these instructions were given to the patient personally. All questions were answered and the patient understood all instructions. The instructions were given to the patient in print as well. Time spent discussing smoking cessation with patient: 3 to 10 minutes Status at Discharge Functional status at discharge: independent ambulation Overall status at discharge: patient is progressing back to baseline Time Spent with Patient Time attestation: Total time spent providing and/or coordinating discharge services: Discharge coordination time: Less than 30 minutes Quality: Stroke Does the patient have a stroke diagnosis?: No Reason for No Anti-thrombotic at DC: Contraindicated Physical Exam Vital Signs: Vital Signs: Last Vital Signs Temp 97.9 F 10/10/20 12:15 Pulse 77 10/10/20 13:15 Resp 18 10/10/20 13:15 BP 144/74 H 10/10/20 13:15 Pulse Ox 100 10/10/20 13:15 Body Mass Index 38.6 DS: Data Data Completed and Pending Pending studies at discharge: Pending at discharge 10/10/20 11:49 Surgical [PTH] Routine Labs on day of discharge: Laboratory Results - last 24 hr 10/10/20 10/10/20 10/10/20 06:10 06:20 13:17 Hgb 14.0 Hct 42.2 Sodium Potassium Chloride Carbon Dioxide Anion Gap BUN Creatinine Estim Creat Clear Calc Estimated GFR Random Glucose Calcium Urine Test NEGATIVE COVID-19 (MICHAEL) Negative COVID-19 [employer] See Note 10/10/20 13:17 Hgb Hct Sodium 136 Potassium 4.5 Chloride 105 Carbon Dioxide 18 L Anion Gap 18 BUN 8 L Creatinine 0.90 Estim Creat Clear Calc 96.8 Estimated GFR > 60 Random Glucose 157 H D Calcium 8.9 D Urine Test COVID-19 (MICHAEL) COVID-19 [employer] Discharge Plan Discharge Anticipated Discharge Date/Time: 10/11/20 14:00 Patient Disposition: Home, Self-Care Discharge Diagnosis: s/p gastric by pass Referrals: Physician,None [Primary Care Provider] - 1 Week Discharge Medications: Continued pantoprazole 40 mg tablet,delayed release (DR/EC) 40 mg PO DAILY Qty: 30 RF: 2 albuterol sulfate 90 mcg/actuation HFA aerosol inhaler 2 puff inhalation Q6H PRN (Reason: Shortness Of Breath Or Wheezing) RF: 0 sucralfate 100 mg/mL suspension 10 ml PO BID Qty: 400 RF: 2 ondansetron HCl [Zofran] 4 mg tablet 4 mg PO Q12H Qty: 20 RF: 0 Discontinued Vitron-C 65 mg iron- 125 mg tablet,delayed release (DR/EC) 1 tab PO DAILY Qty: 30 RF: 2 mecobalamin (vitamin B12) 1,000 mcg tablet,disintegrating 1,000 mcg sublingual DAILY Qty: 30 RF: 2 cholecalciferol (vitamin D3) 125 mcg (5,000 unit) capsule 125 mcg PO DAILY Qty: 30 RF: 2 Discharge Orders: Discharge Order (Routine); Ordered 10/11/20 Ordered By: Dev Barlow Diet: other Activity on Discharge: No heavy lifting Stand Alone Forms: Patient Portal Discharge page Care Plan Goals: weight loss Health Concerns: obesity Plan of Treatment: No tub baths, sex or returning to work until discussed at first post op appointment. No exercise, alcohol, tobacco or illegal drug use. Continue to use incentive spirometer hourly while awake. Walk in home for 5- 10 minutes every 2 hours during the first week. Continue phase 3 diet until first post op appointment. Follow all instructions in the bariatric handbook and call with any questions. Discharge Instructions 1. Please call your doctor or come back to the emergency room should any new symptoms arise. 2. You will receive a courtesy call from [facility] 24-48 hours after discharge. 3. Activity: abstain from alcohol, practice limited stair climbing, no bending, no driving, no exercise, no illicit substances, no lifting, no sex, no tub bath, no work. 4. Diet: continue stage 3 protein shakes until your [address] Kat. 5. Dressing Change/Wound Care: Your incision is covered by surgical glue. If the area is tender, you may apply an ice pack for short intervals (no more than 20 minutes on, followed by at least 20 minutes off). Do not apply heat. Do not use creams, lotions, or topical antibiotics unless instructed to do so by your surgeon. These can cause infection or allergic reaction. 6. Record drain output for all 24 hour periods on drain output sheet. Bring sheet at the next office visit 7. Call your doctor if: - Your temperature exceeds 101.5 F - You experience excessive pain or swelling - You have an unexpected reaction to medication - You have excessive bleeding - You experience continued vomiting/nausea - Your incision begins to separate - Your incision shows signs of infection such as increased redness, swelling, excessive pain, heat, or drainage (light blood or clear fluid is normal) 8. General instructions: No lifting greater than 5 lbs for the next 4 weeks[address] driving within 24 hours of taking narcotic pain medications. If you do not move your bowels in the next 2 days, please take milk of magnesia over the counter. Please follow the post op diet and do not advance your diet until you are seen in the office in about 2 weeks. Please walk around your home every hour or two to prevent blood clots from forming in your legs. You do not need to wake from sleeping to walk. Please sleep in a bed or couch to prevent kinking at the hips and knees. Please take your incentive spirometer (your lung public health outreach worker) home with you and use it for the next few days to prevent pneumonias. You may shower, no hot tubs, baths or swimming pools. Please call the office with any questions or concerns such as increasing abdominal pain, fever, chills, shortness of breath, chest pain, leg pain or swelling, or redness or drainage from your incisions. Please stay on stage 3 diet which includes sugar free clear liquids such as ice pops and jello and broth and crystal light. Avoid all carbonation. Please drink 3 protein shakes with at least 25-30 grams of protein daily or 3 of the Celebrate 4:1 shakes which can be purchased in our office. The Celebrate shakes have all of the bariatric vitamins you need if you consume these shakes. If you are drinking other protein shakes, you will need to purchase the Celebrate multivitamins and calcium that we provide in the office (they will provide all the vitamins you need). Please make sure you are consuming at least 40-60 ounces of water in addition to your 3 protein shakes daily. Do not hesitate to contact the office with any questions at . The patient's medical history has been reviewed and they are considered low risk for post op DVT and therefore DVT prophylaxis is not considered necessary. Travel after surgery was reviewed. The patient has not disclosed any travel plans during the first 30 days after surgery and they have been advised that within the first 30 days after surgery any bus, plane, train or car travel over 2 hours in duration is contraindicated due to the possibility of developing blood clots from immobility. Any travel, needs to include periods of ambulation of 10 minutes in duration every 2 hours. The patient was instructed to discuss any plans for travel during this period with their bariatric surgeon. Assessment: stable POD#1 s/p GBP Discharge Date/Time: 10/11/20 14:53
[2020-10-10] MEDS: 0.9 % Sodium Chloride Flush 3 ML SYRINGE IVFLUSH (16:13)
[2020-10-10] MEDS: Metoclopramide HCl 10 MG/2 ML VIAL IVPUSH (17:31)
--- NOTE | 2020-10-10 17:34 | PC.NURSE ---
Pt complaining of breakthru nausea. Pt medicated with reglan for comfort
[2020-10-10] MEDS: ondansetron HCL 4 MG/2 ML VIAL IVPUSH (19:32)
[2020-10-11] VITALS (8 sets, daily range): BP systolic 137–142; BP diastolic 67–83; PULSE 62–70; RESP 16–18; TEMP 36.8–37.8; O2SAT 99–100
[2020-10-11] MEDS: ondansetron HCL 4 MG/2 ML VIAL IVPUSH ×3 (00:26→12:45)
[2020-10-11] MEDS: HYDROmorphone HCl 0.5 MG/0.5 ML SYRINGE 0.25 MG IVPUSH ×2 (00:43→05:48)
--- NOTE | 2020-10-11 02:27 | PC.NURSE ---
Applied a new ice pack to the patients back of neck. Temperature has decreased to 99.6. Call lane within reach, will continue to monitor.
[2020-10-11] MEDS: Lactated Ringers 1,000 ML 150 ML IVCONT (04:20)
--- NOTE | 2020-10-11 04:25 | PC.NURSE ---
Took patient to the bathroom to try and move her bowels, she was unable to. We then walked around the unit and she stated that made her feel better. Rechecked the patients temp and it was 99.1. Her AYAD drain is draining a small amount. Not emptied at this time. Call lane within reach, will continue to monitor.
[2020-10-11 06:23] LABS: MANUAL DIFF FLAG NO
[2020-10-11 06:44] LABS: Basophils Percent Auto 0.1 % (0-2); Hematocrit 36.4 % (37-47); Imm Gran Abs Auto 0.04 X10*3/uL (0.00-0.03); Imm Gran Pct Auto 0.3 % (0.0-0.4); Lymphocytes Absolute Auto 1.9 X10*3/uL (1.2-4.9); Lymphocytes Percent Auto 13.9 % (20-40); Mean Corpuscular Hemoglobin 29.5 pg (27.0-33.0); Mean Corpuscular Volume 89.4 fL (80-98); Mean Platelet Volume 11.5 fL (9.4-12.3); Monocytes Absolute Auto 1.3 X10*3/uL (0.1-1.2); Monocytes Percent Auto 9.7 % (2-11); Neutrophils Absolute Auto 10.3 X10*3/uL (2.0-8.3); Platelet Count 260 X10*3/uL (160-400); Red Blood Count 4.07 X10*6/uL (4.20-5.50); White Blood Count 13.5 X10*3/uL (4.8-10.8)
[2020-10-11 07:15] LABS: Anion Gap 12 (12-20); Blood Urea Nitrogen 4 mg/dL (9-16); Calcium 8.5 mg/dL (8.4-10.2); Carbon Dioxide 25 mmol/L (22-29); Chloride 103 mmol/L (96-108); Creatinine Clr Calc Pharmacy 117.7; Estimated Glomerular Filt Rate > 60; Glucose Random 103 mg/dL (60-115); Potassium 3.9 mmol/L (3.3-5.1); Sodium 136 mmol/L (135-145)
[2020-10-11] MEDS: Famotidine/PF 20 MG/2 ML VIAL IVPUSH (08:47)
--- NOTE | 2020-10-11 11:12 | MHC.CM.PN ---
EMR REVIEWED, PT ADMITTED S/P GASTRIC BYPASS AND HERNIA REPAIR, CM MET W/PT WHO DECLINED EMISSION TECHNICIAN, PT REPORTS SHE LIVES W/, DTR AND GDTR, PT IS INDEPENDENT W/ALL CARE, NO DME OR HOME SERVICES, PT DOES NOT HAVE A PCP, PT PROVIDED DIRECTIONS TO SIGN UP AND GIVEN PAMPHLET W/[facility]. HCP COMPLETED W/PT, PT GIVEN EDCATIONAL INFO IN [facility], ORIGINAL AND 2 COPIES, COPY UPLOADED TO [employer] AND PLACED IN CHART. D/C PLAN: HOME SELF-CARE LATER TODAY W/OUTPT FOLLOW-UP W/SURGEON, FAMILY FOR TRANSPORT. HCP: CADY LARA [phone]
--- NOTE | 2020-10-11 13:55 | PC.NURSE ---
PT VERBALIZED UNDERSTANDING OF DISCHARGE INSTRUCTIONS . PT DEMONSTRATED HOW TO EMPTY AYAD DRAIN AND HOW TO DOCUMENT . DRESSING CHANGED AROUND AYAD DRAIN AND SUPPLIES GIVEN TO TO PT . PT VERBALIZED UNDERSTANDING TO STAY ON PHASE 1 DIET UNTIL COMMUNICATING WITH MD AT NIGHT . PT TOLERATING PHASE ONE TOTAL OZ OF 5
--- NOTE | 2020-10-11 15:00 | HO.POSTANES ---
Post Anesthesia Evaluation Post Anesthesia Evaluation Vital Signs: Vital Signs Temp Pulse Resp BP Pulse Ox 10/11/20 14:45 18 10/11/20 11:37 98.3 F 62 16 142/75 H 100 10/11/20 08:52 98.9 F 65 16 141/75 H 99 10/11/20 06:00 98.9 F 70 18 139/83 99 10/11/20 05:48 18 Anesthesia: General Endotracheal-GETA Mental Status: Awake Pain Control: Satisfactory Nausea/Vomiting: None Hydration: Adequate Anesthesia-Related Issues: No Anes. Related Issues
== END 2020-10-11 14:53 | disposition home or self-care (01) | DRG 403 ==
LOC: HO.SSSA 12:24 → HO.S3 10-11 07:57
PROVIDERS: Physician Assistant; Admitting Provider Surgery; Visit Provider Surgery
PROC: 0D164ZA Bypass Stomach to Jejunum, Percutaneous Endoscopic Approach (ICD-10-PCS; principal; 2020-10-10 07:30)
DX: E66.01 Morbid (severe) obesity due to excess calories (principal); G47.30 Sleep apnea, unspecified; K21.9 Gastro-esophageal reflux disease without esophagitis; K44.9 Diaphragmatic hernia without obstruction or gangrene; Z68.37 Body mass index [BMI] 37.0-37.9, adult; J45.909 Unspecified asthma, uncomplicated; Z20.822 Contact with and (suspected) exposure to COVID-19; Z87.891 Personal history of nicotine dependence; Z79.899 Other long term (current) drug therapy
CPT/HCPCS: 36415; 74240; 80048; 80053; 80061; 81025; 83036; 83525; 84443; 85014; 85018; 85025; 85610; 85730; 86140; 86850; 86900; 86901; 87635; 88307; 88342; 99024; C1758; J0131; J0690; J1100; J1170; J2250; J2370; J2405; J2765; J3010

== ENCOUNTER → 2020-10-16 08:08 | Outpatient (BNVA) | payer OTHER, SELFPAY | PROVIDERS: Visit Provider Surgery | DX: E66.9 Obesity, unspecified (principal); Z68.37 Body mass index [BMI] 37.0-37.9, adult | CPT/HCPCS: 99212 ==

== ENCOUNTER → 2020-12-29 08:05 | Outpatient (BNVA) | payer OTHER, SELFPAY | PROVIDERS: Visit Provider Surgery ==

== ENCOUNTER → 2021-01-08 09:08 | Outpatient (BNVA) | payer OTHER, SELFPAY | PROVIDERS: Visit Provider Physician Assistant ==

== ENCOUNTER 2021-01-10 12:08 | Outpatient (REF) | payer OTHER, SELFPAY ==
[2021-01-10 12:31] LABS: MANUAL DIFF FLAG NO
[2021-01-10 12:59] LABS: Basophils Percent Auto 0.5 % (0-2); Eosinophils Absolute Auto 0.1 X10*3/uL (0.0-0.4); Eosinophils Percent Auto 1.2 % (0-4); Hemoglobin 13.2 g/dl (12.0-16.0); Imm Gran Abs Auto 0.03 X10*3/uL (0.00-0.03); Imm Gran Pct Auto 0.4 % (0.0-0.4); Lymphocytes Absolute Auto 2.5 X10*3/uL (1.2-4.9); Lymphocytes Percent Auto 32.8 % (20-40); Mean Corpuscular Hemoglobin 29.9 pg (27.0-33.0); Mean Corpuscular Volume 90.7 fL (80.0-98.0); Monocytes Absolute Auto 0.7 X10*3/uL (0.1-1.2); Monocytes Percent Auto 9.6 % (2-11); Neutrophils Absolute Auto 4.2 x10*3/uL (2.0-8.3); Neutrophils Percent Auto 55.5 % (45-73); Platelet Count 272 X10*3/uL (160-400); Red Blood Count 4.41 X10*6/uL (4.20-5.50); White Blood Count 7.5 X10*3/uL (4.8-10.8)
[2021-01-10 13:12] LABS: Alanine Aminotransferase 12 U/L (0-31); Alkaline Phosphatase 69 U/L (39-117); Anion Gap 12 (12-20); Aspartate Amino Transferase 13 U/L (5-31); Bilirubin Total 1.3 mg/dL (0.0-1.0); Blood Urea Nitrogen 8 mg/dL (9-16); C Reactive Protein 0.17 mg/dL (< or = 0.50); Calcium 9.3 mg/dL (8.4-10.2); Carbon Dioxide 27 mmol/L (22-29); Chloride 105 mmol/L (96-108); Cholesterol 206 mg/dL; Estimated Glomerular Filt Rate > 60; Glucose Random 91 mg/dL (60-115); HDL Cholesterol 46 mg/dL; Iron 66 mcg/dL (30-160); LDL Cholesterol Calculated 146 mg/dl; Percent Iron Saturation 22 % (15-50); Potassium 3.8 mmol/L (3.3-5.1); Sodium 140 mmol/L (135-145); Total Iron Binding Capacity 303 mcg/dL (228-428); Total Protein 6.9 g/dL (6.5-8.0); Triglycerides 72 mg/dL; Unsaturated Iron Binding 237 ug/dL
[2021-01-10 13:19] LABS: Estimated Average Glucose 103 mg/dL; Hemoglobin A1c % 5.2 %
[2021-01-10 13:34] LABS: Ferritin 22 ng/mL (10-122); Insulin 6 uU/mL (2-29); TSH reflex Free T4 1.54 uIU/mL (0.32-4.0); Vitamin D 25-OH Total 21.8 ng/mL (>30)
[2021-01-10 13:53] LABS: Folate 5.7 ng/mL (> or = 4.0); Vitamin B12 294 pg/mL (200-900)
[2021-01-13 12:51] LABS: Zinc 69 mcg/dL (60-130)
[2021-01-14 11:51] LABS: Vitamin B1 <6 nmol/L (8-30)
[2021-01-15 11:02] LABS: Calcium (PTHI) 9.3 mg/dL (8.6-10.2); PTHI 58 pg/mL (14-64)
[2021-01-15 16:31] LABS: Vitamin A 32 mcg/dL (38-98)
== END 2021-01-10 12:09 | disposition home or self-care (01) ==
LOC: HO.LAB 12:08
PROVIDERS: Visit Provider Physician Assistant
DX: R10.13 Epigastric pain (principal); Z98.84 Bariatric surgery status
CPT/HCPCS: 36415; 80053; 80061; 82306; 82607; 82728; 82746; 83036; 83525; 83540; 83970; 84425; 84443; 84590; 84630; 85025; 86140

== ENCOUNTER → 2021-02-19 14:18 | Outpatient (BNVA) | payer OTHER, SELFPAY | PROVIDERS: Visit Provider Physician Assistant | DX: R10.11 Right upper quadrant pain (principal); Z98.84 Bariatric surgery status | CPT/HCPCS: 99212 ==

== ENCOUNTER 2021-02-26 11:31 | Outpatient (REF) | payer OTHER, SELFPAY ==
[2021-02-26 13:09] LABS: MANUAL DIFF FLAG NO
[2021-02-26 14:04] LABS: Basophils Percent Auto 0.6 % (0-2); Eosinophils Absolute Auto 0.1 X10*3/uL (0.0-0.4); Eosinophils Percent Auto 1.4 % (0-4); Hematocrit 41.9 % (37.0-47.0); Hemoglobin 13.6 g/dl (12.0-16.0); Imm Gran Abs Auto 0.04 X10*3/uL (0.00-0.03); Imm Gran Pct Auto 0.6 % (0.0-0.4); Lymphocytes Absolute Auto 2.8 X10*3/uL (1.2-4.9); Lymphocytes Percent Auto 39.7 % (20-40); Mean Corpuscular HGB Conc 32.5 g/dl (31.0-35.0); Mean Corpuscular Volume 92.5 fL (80.0-98.0); Mean Platelet Volume 11.2 fL (9.4-12.3); Monocytes Absolute Auto 0.5 X10*3/uL (0.1-1.2); Monocytes Percent Auto 7.6 % (2-11); Neutrophils Absolute Auto 3.5 x10*3/uL (2.0-8.3); Neutrophils Percent Auto 50.1 % (45-73); Platelet Count 250 X10*3/uL (160-400); Red Blood Count 4.53 X10*6/uL (4.20-5.50); White Blood Count 6.9 X10*3/uL (4.8-10.8)
[2021-02-26 14:09] LABS: INTERNATIONAL NORM RATIO 1.1 (0.9-1.1); Prothrombin Time 12.1 SEC (9.9-13.0)
[2021-02-26 14:12] LABS: Partial Thromboplastin Time 35.1 SEC (24.1-38.0)
[2021-02-26 14:17] LABS: Estimated Average Glucose 105 mg/dL; Hemoglobin A1c % 5.3 %
[2021-02-26 14:33] LABS: Alanine Aminotransferase 9 U/L (0-31); Albumin Level 3.6 g/dL (3.5-5.0); Alkaline Phosphatase 79 U/L (39-117); Anion Gap 10 (12-20); Aspartate Amino Transferase 15 U/L (5-31); Bilirubin Total 0.8 mg/dL (0.0-1.0); Blood Urea Nitrogen 7 mg/dL (9-16); Calcium 9.1 mg/dL (8.4-10.2); Carbon Dioxide 29 mmol/L (22-29); Chloride 104 mmol/L (96-108); Estimated Glomerular Filt Rate > 60; Glucose Random 90 mg/dL (60-115); Potassium 3.8 mmol/L (3.3-5.1); Sodium 139 mmol/L (135-145); Total Protein 6.7 g/dL (6.5-8.0)
== END 2021-02-26 11:32 | disposition home or self-care (01) ==
LOC: HO.LAB 11:31
PROVIDERS: PCP Physician Assistant; Visit Provider Surgery
DX: R10.11 Right upper quadrant pain (principal); K80.20 Calculus of gallbladder without cholecystitis without obstruction; E66.9 Obesity, unspecified
CPT/HCPCS: 36415; 80053; 83036; 85025; 85610; 85730; 99212

== ENCOUNTER 2021-03-06 11:50 | Day surgery (SDC) | payer OTHER, SELFPAY ==
--- NOTE | 2021-03-03 22:54 | MHC.SHP ---
Pre-Procedural Eval Section A Date of Service: 03/03/21 The patient is an INPATIENT: No The History & Physical has been completed within 30 days and I have reviewed it.: Yes Section B Chief Complaint: cholecystitis Relevant Family History (Specify if Yes): No Relevant Social History: None Present Medications: None Medical History: No relevant PMH History of Previous Operations: No relevant previous surgery Allergies: Allergies Allergy/AdvReac Type Severity Reaction Status Date / Time No Known Allergies Allergy Verified 02/26/21 11:50 Review of Systems Sugical H&P ROS: Negative: Constitution, Cardiovascular, Respiratory, Neurological, Psychiatric, Hem-Onc, Allergic/Immunologic, Genitourinary, Musculoskeletal, Integumentary, Endocrine and Eyes/Ears/Nose/Throat and Yes, Specify: Gastrointestinal (RUQ abdominal pain) Exam Surgical H&P Exam: Normal: HEENT, Normal: Heart, Normal: Lungs, Normal: Extremities, Normal: Skin and Normal: Neurological and Significant Findings: Abdomen (RUQ tenderness) Plan Diagnosis/Plan: Unchanged I have reviewed the history and physical and performed a pertinent physical examination on my patient. No changes have occurred unless specified.
--- NOTE | 2021-03-05 13:11 | P.CONAN_ITS ---
Documented by User: Anabelle Pinto NP 03/05/21 13:12 HPI - Anesthesia Eval Consult details Narrative: 35yo F for Cholecystectomy Laparoscopic s/p gastric bypass 09/2020 with GA-ETT 7 PMFSH Active Problems Active Problems: All Active Problems (Updated 02/26/21 @ 11:41 by Dev Barlow MD) BMI 31.0-31.9,adult (Acute) Obesity (Acute) Cholelithiasis (Acute) RUQ pain (Acute) Gastric bypass status for obesity (Acute) Epigastric pain (Acute) Constipation (Acute) Intra-abdominal adhesions (Acute) S/P gastric bypass (Acute) Status post repair of paraesophageal diaphragmatic hernia (Acute) Diaphragmatic hernia (Acute) Esophagitis determined by biopsy (Acute) Asthma (Acute) Morbid (severe) obesity due to excess calories (Acute) Past Medical History Medical History Asthma BMI 37.0-37.9, adult BMI 39.0-39.9,adult COVID-19 vaccine series completed GERD (gastroesophageal reflux disease) Iron deficiency Morbid (severe) obesity due to excess calories Obesity Preprocedural examination Sleep apnea Vitamin B12 deficiency Vitamin D deficiency Family History Family History Mother Depressed Anxiety Asthma Father No problems noted. Brother No problems noted. Brother Asthma Brother No problems noted. Son No problems noted. Daughter Asthma Anxiety Family history of problems with anesthesia: No Surgical History Surgical History Gastric bypass status for obesity H/O: History of esophagogastroduodenoscopy (EGD) History of sleeve gastrectomy Hx of appendectomy Hx of cholecystectomy Hx of dilation and curettage Hx of tubal ligation History of Problems with Anesthesia: No Social History Social History Are you a primary college and career counselor to a significant other at home: Yes (Child 3 yrs old) Do you presently have visiting nurse or other home services: No Alcohol intake: never Patient Tobacco Use Status: Former Tobacco user Use of substances other than those prescribed or required for medical reasons: No Are you DNR?: No Advance Directives: No Advance Directives Information Provided: Yes Recently lost weight without trying: No Nutrition Risks: No Nutritional Risk Patient : No service: No Current occupational status: unemployed Meds Allergies Allergy/AdvReac Type Severity Reaction Status Date / Time No Known Allergies Allergy Verified 02/26/21 11:50 Exam Exam Date and Time: March 05, 2021 1311 Pertinent Lab Results Pertinent Lab Results: Laboratory Tests 02/26/21 12:58 Blood Type A Positive Antibody Screen NEGATIVE Laboratory Tests 02/26/21 02/26/21 13:06 13:06 WBC 6.9 Hgb 13.6 Hct 41.9 Plt Count 250 Sodium 139 Potassium 3.8 Chloride 104 Carbon Dioxide 29 BUN 7 L Creatinine 0.75 Narrative Narrative: EKG 05/2020 Vent. Rate : 070 BPM ? ? Atrial Rate : 070 BPM ?? P-R Int : 128 ms? QRS Dur : 096 ms ? ? QT Int : 406 ms ? ? ? P-R-T Axes : 038 010 016 degrees ?? QTc Int : 438 ms ? Normal sinus rhythm Normal ECG No previous ECGs available Assessment and Plan Assessment Anesthesia Assessment: Chart Reviewed Final Anesthetic Review Family History of Problems with Anesthesia: No History of Problems with Anesthesia: No Documented by User: Jessi Arellano MD 03/06/21 12:33 HPI - Anesthesia Eval Consult details Narrative: 35yo F for Cholecystectomy Laparoscopic s/p gastric bypass 09/2020 with GA-ETT 7 S/p sleeve gastrectomy 2014 [facility] Past Medical History Medical History Asthma BMI 37.0-37.9, adult BMI 39.0-39.9,adult COVID-19 vaccine series completed GERD (gastroesophageal reflux disease) Iron deficiency Morbid (severe) obesity due to excess calories Obesity Preprocedural examination Sleep apnea Vitamin B12 deficiency Vitamin D deficiency Family History Family History Mother Depressed Anxiety Asthma Father No problems noted. Brother No problems noted. Brother Asthma Brother No problems noted. Son No problems noted. Daughter Asthma Anxiety Surgical History Surgical History Gastric bypass status for obesity H/O: History of esophagogastroduodenoscopy (EGD) History of sleeve gastrectomy Hx of appendectomy Hx of cholecystectomy Hx of dilation and curettage Hx of tubal ligation Social History Social History Are you a primary college and career counselor to a significant other at home: Yes (Child 3 yrs old) Do you presently have visiting nurse or other home services: No Alcohol intake: never Patient Tobacco Use Status: Former Tobacco user Use of substances other than those prescribed or required for medical reasons: No Are you DNR?: No Advance Directives: No Advance Directives Information Provided: Yes Recently lost weight without trying: No Nutrition Risks: No Nutritional Risk Patient : No service: No Current occupational status: unemployed Meds Allergies Allergy/AdvReac Type Severity Reaction Status Date / Time No Known Allergies Allergy Verified 02/26/21 11:50 Exam Height,Weight and Vital Signs: Height 5 ft 3 in Weight 80.931 kg Vital Signs Temp Pulse Resp BP Pulse Ox 03/06/21 12:08 97.8 F 66 16 101/63 100 Pertinent Lab Results Pertinent Lab Results: Laboratory Tests 02/26/21 12:58 Blood Type A Positive Antibody Screen NEGATIVE Laboratory Tests 02/26/21 02/26/21 13:06 13:06 WBC 6.9 Hgb 13.6 Hct 41.9 Plt Count 250 Sodium 139 Potassium 3.8 Chloride 104 Carbon Dioxide 29 BUN 7 L Creatinine 0.75 Laboratory Results - last 24 hr 03/05/21 12:40 COVID-19 (MICHAEL) Negative COVID-19 Clin Com See Note Airway Mallampati Class: II TM Dist: >3cm Neck ROM: Full Loose/Missing/Broken Teeth: Yes (Missing molars) Heart: RRR Lungs: CTAB Assessment and Plan Assessment Anesthesia Assessment: Anesthesia Plan Discussed Final Anesthetic Review NPO: Yes ASA Class: III Final Preanesthetic Review: No Changes in Pt Med Stat, Meds/Allgs Chart Reviewed, Consent Obtained/Reviewed and Anes Risks/Benef Reviewed Patient Risk: Intermediate Procedure Risk: Intermediate Assessment/Block/Sedation in SS: Assess/Block/Sedation-SS Anesthetic Plan Anesthetic Plan: GA Disposition: Standard PACU
[2021-03-05 13:21] LABS: COVID-19 Test Negative (Negative); IDNOW Serial# 55D5AD1C
[2021-03-06] VITALS (15 sets, daily range): BP systolic 101–153; BP diastolic 54–86; PULSE 57–84; RESP 12–24; TEMP 36.3–36.6; O2SAT 97–100; BMI 31.6
[2021-03-06] MEDS: Lactated Ringers 1,000 ML 80 ML IVCONT (12:35)
--- NOTE | 2021-03-06 13:12 | PM.OP ---
Brief Operative Note Date of Service: 03/06/21 Pre-op diagnosis: Symptomatic cholelithiasis Post-op diagnosis: same Procedure: PROCEDURE DATE:? 03/06/2021 PREOPERATIVE DIAGNOSIS:? Symptomatic cholelithiasis, mid epigastric and right upper quadrant abdominal pain? POSTOPERATIVE DIAGNOSIS:? ?Same as above.? PROCEDURE:? Upper endoscopy and laparoscopic cholecystectomy? Surgeon: ? Alphonso Barlow M.D.. Ph.D.? Certified Pediatric Nurse Practitioner:? Paulo Hunter PA-C? Anesthesia: General endotracheal anesthesia? Estimated blood loss:? Minimal FINDINGS AND PROCEDURE:? OPERATIVE INDICATIONS:? The patient is a 35 year old female known to me who underwent a laparoscopic revision of sleeve gastrectomy to gastric bypass. The patient had good weight loss so far and had a completely uneventful recovery.? The patient was doing very well but has recently been complaining of persistent mid epigastric and right upper quadrant abdominal pain which is mostly postprandial. Ultrasound of the abdomen and pelvis was consistent with cholelithiasis which was not present preoperatively. Based on this information I recommended laparoscopic cholecystectomy, upper endoscopy to evaluate the patient's symptoms.? In addition to that the plan was also to examine the gastric bypass at the same time. Risks and complications of the surgery were discussed with the patient in advance particularly the possibility of conversion to an open surgery, bleeding, infection, obstruction, deep vein thrombosis or pulmonary embolism, bile leak or major bile duct injury that may require surgical intervention. The patient understood the risks and was in agreement with the plan.?? PROCEDURE: After informed consent was obtained by the patient, the patient was? transferred to the Operating Room and was placed in the supine position.? The patient was given preoperative antibiotics and after successful induction of general anesthesia, pneumatic compression devices were placed.?? An upper endoscopy was performed next, the oropharynx and esophagus appeared within the normal limits. There was no hiatal hernia.? The small pouch was entered, appeared to be of normal size, there was no gastritis and the gastrojejunostomy was patent, there was no anastomotic ulcer.? The proximal Paco limb appeared to be normal as well. At that point the Paco limb and the pouch was decompressed and the scope was withdrawn from the patient's mouth. The patient was then prepped and draped in the usual sterile manner and abdominal access was? established with the Jacinto technique.? The abdomen was insufflated with C02 to a pressure of 15 mmHg. A 5 mm Versi-step port was placed, slightly to the right and superior from the umbilicus. The 5 mm camera was introduced.? We inspected the area where the trocar had been placed and there was no injury.? The patient was then placed initially in a steep reverse Trendelenburg position and three additional ports were placed, specifically a 12 mm Versi-step port just to the right of the midline? below the xiphoid process and two 5 mm Versi-step ports at the right upper quadrant and right flank.?? The patient was then placed back in the supine position and we examined the bypass by retracting the transverse mesocolon and the omentum cephalad. The jejunostomy was? identified, it appeared to be normal. There was no dilation of the anastomosis.? The small bowel mesenteric defect was closed and there was no internal hernia.? The biliopancreatic limb was traced back to the ligament of Treitz and the García's defect was completely closed as well as the mesocolic defect.?At that point we positioned back the transverse colon and the omentum above the small intestine and then the patient was? placed in a steep reverse Trendelenburg position tilted to the left side. The gallbladder was retracted cephalad and laterally. There were adhesions between the omentum and the gallbladder wall that were taken down.? The peritoneal attachments of the gallbladder? at the triangle of Calot posteriorly and anteriorly were taken down.? The cystic duct and artery were both seen. They were completely dissected free, skeletonized all the way to the infundibulum of the gallbladder . In a similar fashion we also cleaned the liver bed just behind the cystic artery to make sure there was no additional structures in this area.?There was an additional small vessel entering the gallbladder which was also dissected and clipped with 2 clips proximally and one distally and was cut in between. Once we confirmed that both structures were entering into the gallbladder? and there were no other structures in the area, they were both clipped with two clips proximally, one distally and were cut in-between. We then using the electrocautery we slowly took down the gallbladder? from the liver bed. Small areas of bleeding from the liver parenchyma were controlled with the cautery.? After the gallbladder was completely detached from the liver bed, it was placed in an EndoCatch bag and was removed without difficulty from the xiphoid port. We then inspected the clips at the cystic duct and artery and were both in place.? There was no active bleeding from the liver bed. We thoroughly irrigated the right upper quadrant and we removed all fluid ?until clear.? At that point the patient was placed in supine position, we deflated the abdomen and we removed all ports under direct vision and no bleeding was noted from any of the port sites.?The fascia of the 12 mm port was closed using a #1 Polysorb suture. 60cc 0.5% Marcaine and 10mg of Dexamethasone were used to infiltrate the fascial closure as well as all skin incisions. The wounds were irrigated with saline mixed with antibiotic solution and then the skin was closed with 4-0 Monocryl subcuticular sutures antibiotic-coated.? Steri-strips and OpSites were used to cover all incisions. The patient extubated and was transferred in stable condition to the Recovery Room for further care. I was present and performed all steps of the procedure. Paulo was the nurse first assist. There were no residents to assist with this case. Alphonso Barlow M.D., Ph.D., F.A.C.S. Surgeon: Dev Barlow MD Anesthesia: GETA, local and other (TAP block) Was an Certified Pediatric Nurse Practitioner used for this Procedure?: No Certified Pediatric Nurse Practitioner: Elsa Bates Estimated blood loss (mL): 10 IV fluids (mL): 2,000 Urine output (mL): 0 (No Stover to record) Pathology: other (Gallbladder) Condition: stable Disposition: PACU
[2021-03-06] MEDS: fentaNYL citrate/PF 100 MCG/2 ML VIAL 50 MCG IVPUSH (15:57)
[2021-03-06] MEDS: fentaNYL citrate/PF 100 MCG/2 ML VIAL 25 MCG IVPUSH ×3 (16:09→16:31)
[2021-03-06] MEDS: oxyCODONE HCl Immed Release 5 MG TABLET PO (16:39)
== END 2021-03-06 18:24 | disposition home or self-care (01) ==
PROVIDERS: Physician Assistant Surgical; PCP Physician Assistant; Visit Provider Surgery
PROC: 0FT44ZZ Resection of Gallbladder, Percutaneous Endoscopic Approach (ICD-10-PCS; CPT 47562; principal; 2021-03-06 13:00)
DX: K80.20 Calculus of gallbladder without cholecystitis without obstruction (principal); R10.13 Epigastric pain; R10.11 Right upper quadrant pain; K66.0 Peritoneal adhesions (postprocedural) (postinfection); Z98.84 Bariatric surgery status; E66.9 Obesity, unspecified; Z68.37 Body mass index [BMI] 37.0-37.9, adult; K21.9 Gastro-esophageal reflux disease without esophagitis; Z90.3 Acquired absence of stomach [part of]; J45.909 Unspecified asthma, uncomplicated; E61.1 Iron deficiency; E55.9 Vitamin D deficiency, unspecified; E53.8 Deficiency of other specified B group vitamins; Z79.899 Other long term (current) drug therapy; Z20.822 Contact with and (suspected) exposure to COVID-19
CPT/HCPCS: 47562; 86850; 86900; 86901; 87635; 88304; J0131; J0690; J1100; J2250; J2405; J2550; J3010

== ENCOUNTER → 2021-03-12 08:51 | Outpatient (BNVA) | payer OTHER, SELFPAY | PROVIDERS: Referring Provider Physician Assistant; Visit Provider Surgery | DX: K59.00 Constipation, unspecified (principal); Z90.49 Acquired absence of other specified parts of digestive tract | CPT/HCPCS: 99212 ==

== ENCOUNTER → 2021-04-11 08:09 | Outpatient (BNVA) | payer OTHER, SELFPAY | PROVIDERS: Visit Provider Physician Assistant ==

== ENCOUNTER → 2021-05-11 08:23 | Outpatient (BNVA) | payer OTHER, SELFPAY | PROVIDERS: Visit Provider Physician Assistant | DX: Z13.89 Encounter for screening for other disorder (principal) ==

== ENCOUNTER → 2021-10-19 16:00 | Outpatient (BNVA) | payer OTHER, SELFPAY | PROVIDERS: Visit Provider Physician Assistant Surgical | DX: E66.3 Overweight (principal); K91.2 Postsurgical malabsorption, not elsewhere classified; Z98.84 Bariatric surgery status; Z68.28 Body mass index [BMI] 28.0-28.9, adult | CPT/HCPCS: 99212 ==

== ENCOUNTER 2021-10-25 09:50 | Outpatient (REF) | payer OTHER, SELFPAY ==
[2021-10-25 10:15] LABS: MANUAL DIFF FLAG NO
[2021-10-25 10:49] LABS: Basophils Absolute Auto 0.1 X10*3/uL (0.0-0.2); Basophils Percent Auto 0.8 % (0-2); Eosinophils Absolute Auto 0.1 X10*3/uL (0.0-0.4); Eosinophils Percent Auto 2.1 % (0-4); Hematocrit 42.3 % (37.0-47.0); Hemoglobin 13.7 g/dl (12.0-16.0); Imm Gran Abs Auto 0.02 X10*3/uL (0.00-0.03); Imm Gran Pct Auto 0.3 % (0.0-0.4); Lymphocytes Absolute Auto 2.7 X10*3/uL (1.2-4.9); Lymphocytes Percent Auto 44.7 % (20-40); Mean Corpuscular HGB Conc 32.4 g/dl (31.0-35.0); Mean Corpuscular Hemoglobin 29.8 pg (27.0-33.0); Mean Corpuscular Volume 92.2 fL (80.0-98.0); Monocytes Absolute Auto 0.4 X10*3/uL (0.1-1.2); Monocytes Percent Auto 7.2 % (2-11); Neutrophils Absolute Auto 2.7 x10*3/uL (2.0-8.3); Neutrophils Percent Auto 44.9 % (45-73); Platelet Count 258 X10*3/uL (160-400); Red Blood Count 4.59 X10*6/uL (4.20-5.50); Red Cell Distribution Width 12.9 % (11.0-16.0); White Blood Count 6.1 X10*3/uL (4.8-10.8)
[2021-10-25 11:24] LABS: Alanine Aminotransferase 18 U/L (0-31); Alkaline Phosphatase 104 U/L (39-117); Anion Gap 14 (12-20); Aspartate Amino Transferase 23 U/L (5-31); Bilirubin Total 1.7 mg/dL (0.0-1.0); Blood Urea Nitrogen 7 mg/dL (9-16); C Reactive Protein 0.06 mg/dL (< or = 0.50); Carbon Dioxide 27 mmol/L (22-29); Chloride 102 mmol/L (96-108); Cholesterol 189 mg/dL; Estimated Glomerular Filt Rate > 60; Glucose Random 87 mg/dL (60-115); HDL Cholesterol 54 mg/dL; Iron 128 mcg/dL (30-160); LDL Cholesterol Calculated 122 mg/dl; Percent Iron Saturation 37 % (15-50); Potassium 4.3 mmol/L (3.3-5.1); Sodium 139 mmol/L (135-145); Total Iron Binding Capacity 346 mcg/dL (228-428); Total Protein 7.1 g/dL (6.5-8.0); Triglycerides 67 mg/dL; Unsaturated Iron Binding 218 ug/dL
[2021-10-25 11:31] LABS: Estimated Average Glucose 100 mg/dL; Hemoglobin A1c % 5.1 %
[2021-10-25 11:38] LABS: Ferritin 15 ng/mL (10-122); TSH reflex Free T4 0.92 uIU/mL (0.32-4.0); Vitamin D 25-OH Total 26.3 ng/mL (>30)
[2021-10-25 11:49] LABS: Folate 12.4 ng/mL (> or = 4.0); Vitamin B12 256 pg/mL (200-900)
[2021-10-25 12:49] LABS: Insulin 3 uU/mL (2-29)
[2021-10-26 12:06] LABS: Calcium (PTHI) 9.3 mg/dL (8.6-10.2); PTHI 63 pg/mL (16-77)
[2021-10-29 06:07] LABS: Vitamin B1 9 nmol/L (8-30)
[2021-10-31 02:17] LABS: Vitamin A 28 mcg/dL (38-98)
[2021-11-01 00:56] LABS: Zinc 74 mcg/dL (60-130)
== END 2021-10-25 09:51 | disposition home or self-care (01) ==
LOC: HO.LAB 09:50
PROVIDERS: Visit Provider Physician Assistant Surgical
DX: E66.9 Obesity, unspecified (principal); Z98.84 Bariatric surgery status
CPT/HCPCS: 36415; 80053; 80061; 82306; 82607; 82728; 82746; 83036; 83525; 83540; 83970; 84425; 84443; 84590; 84630; 85025; 86140

== ENCOUNTER → 2021-12-19 15:56 | Outpatient (BNVA) | payer OTHER, SELFPAY | PROVIDERS: PCP Physician Assistant; Referring Provider Physician Assistant; Visit Provider Physician Assistant Surgical | DX: K91.2 Postsurgical malabsorption, not elsewhere classified (principal); E66.3 Overweight; Z68.28 Body mass index [BMI] 28.0-28.9, adult; Z98.84 Bariatric surgery status | CPT/HCPCS: 99212 ==

== ENCOUNTER 2022-02-22 13:41 | Emergency (ER) | payer OTHER, SELFPAY ==
--- NOTE | ~2022-02-22 | XR_ITS ---
EXAMINATION: XR CHEST CLINICAL INFORMATION: Chest pain COMPARISON: Chest x-ray 03/02/2020 TECHNIQUE: 2 views of the chest were obtained. FINDINGS: No significant abnormality is noted involving the heart, lungs, mediastinum, bony thorax or soft tissues. XR/XR chest 2V IMPRESSION: Unremarkable examination.
--- NOTE | 2022-02-22 14:31 | ECG_ITS ---
Test Reason : chest pain Blood Pressure : / mmHG Vent. Rate : 073 BPM Atrial Rate : 073 BPM P-R Int : 136 ms QRS Dur : 076 ms QT Int : 386 ms P-R-T Axes : 060 012 022 degrees QTc Int : 425 ms Normal sinus rhythm Normal ECG When compared with ECG of 02-MAR-2020 12:29, No significant change was found Referred By: Generic ED Physician Electronically Signed By:DORA KOCH
--- NOTE | 2022-02-22 15:15 | ED.CHESTPAIN ---
HPI - Chest Pain General Stated Complaint: chest pain Related Data Previous Rx's Medication Instructions Recorded multivitamin 1 tab PO DAILY #30 tabs 02/19/21 docusate sodium 100 mg capsule 100 mg PO DAILY #30 caps 03/12/21 (Colace) cholecalciferol (vitamin D3) 50 50 mcg PO DAILY #30 caps 10/19/21 mcg (2,000 unit) capsule cyanocobalamin (vitamin B-12) 250 250 mcg PO DAILY #30 tabs 10/19/21 mcg tablet pantoprazole 40 mg tablet,delayed 40 mg PO DAILY #30 tabs 10/19/21 release sucralfate 100 mg/mL oral 10 ml PO QIDACHS #1,000 mL 10/19/21 suspension (Carafate) thiamine HCl (vitamin B1) 100 mg 100 mg PO DAILY #30 tabs 10/19/21 tablet vitamin A palmitate 10,000 unit 20,000 unit PO DAILY 2 weeks #28 10/19/21 tablet tabs Allergies Allergy/AdvReac Type Severity Reaction Status Date / Time No Known Allergies Allergy Verified 12/19/21 16:05 [facility] Past Medical History Medical History Asthma BMI 37.0-37.9, adult BMI 39.0-39.9,adult COVID-19 vaccine series completed GERD (gastroesophageal reflux disease) Iron deficiency Morbid (severe) obesity due to excess calories Obesity Preprocedural examination Sleep apnea Vitamin B12 deficiency Vitamin D deficiency Surgical History Gastric bypass status for obesity H/O: History of esophagogastroduodenoscopy (EGD) History of sleeve gastrectomy Hx of appendectomy Hx of cholecystectomy Hx of dilation and curettage Hx of tubal ligation Family History Family History Mother Depressed Anxiety Asthma Father No problems noted. Brother No problems noted. Brother Asthma Brother No problems noted. Son No problems noted. Daughter Asthma Anxiety Social History Social History Are you a primary critical care rn to a significant other at home: Yes (Child 3 yrs old) Do you presently have visiting nurse or other home services: No Alcohol intake: never Patient Tobacco Use Status: Former Tobacco user service: No Current occupational status: unemployed Course Course Course Narrative: Patient is a 36-year-old female who presents to the emergency department for evaluation of upper respiratory symptoms. She reports Symptom onset was 4 days ago. Initially with fatigue, followed by cough and reproducible chest discomfort to cough and deep inspiration, fevers with T max 101. Discharge Plan Discharge Prescriptions: No Action docusate sodium [Colace] 100 mg capsule 100 mg PO DAILY Qty: 30 2RF multivitamin Tablet 1 tab PO DAILY Qty: 30 6RF cholecalciferol (vitamin D3) 50 mcg (2,000 unit) capsule 50 mcg PO DAILY Qty: 30 6RF cyanocobalamin (vitamin B-12) 250 mcg tablet 250 mcg PO DAILY Qty: 30 6RF pantoprazole 40 mg tablet,delayed release (DR/EC) 40 mg PO DAILY Qty: 30 6RF sucralfate [Carafate] 100 mg/mL suspension 10 ml PO QIDACHS Qty: 1000 1RF thiamine HCl (vitamin B1) 100 mg tablet 100 mg PO DAILY Qty: 30 6RF vitamin A palmitate 10,000 unit tablet 20,000 unit PO DAILY 14 Days Qty: 28 0RF
[2022-02-22 15:21] VITALS: BP 126/75; PULSE 83; RESP 20; TEMP 36.7; O2SAT 97; BMI 28.1
--- NOTE | 2022-02-22 15:23 | ED.URI ---
HPI - URI/Sore Throat General Chief Complaint: Chest Pain <Lizbeth Carlson CNP - Last Filed: 02/22/22 15:28> Stated Complaint: chest pain <Lizbeth Carlson CNP - Last Filed: 02/22/22 15:28> Time Seen by Provider: 02/22/22 16:16 <Lizbeth Carlson CNP - Last Filed: 02/22/22 15:28> Source: patient <Ira Law MD - Last Filed: 02/22/22 19:02> Mode of arrival: ambulatory <Ira Law MD - Last Filed: 02/22/22 19:02> Limitations: no limitations <Ira Law MD - Last Filed: 02/22/22 19:02> History of Present Illness HPI Narrative: Patient comes to the emergency room complaining of intermittent chest pain for about 1 month. Patient reports that yesterday she noticed that the chest pain started radiating towards her left hand. At this time, patient states that she is asymptomatic. <Ira Law MD - Last Filed: 02/22/22 19:02> Related Data Home Medications: Previous Rx's Medication Instructions Recorded multivitamin 1 tab PO DAILY #30 tabs 02/19/21 docusate sodium 100 mg capsule 100 mg PO DAILY #30 caps 03/12/21 (Colace) cholecalciferol (vitamin D3) 50 50 mcg PO DAILY #30 caps 10/19/21 mcg (2,000 unit) capsule cyanocobalamin (vitamin B-12) 250 250 mcg PO DAILY #30 tabs 10/19/21 mcg tablet pantoprazole 40 mg tablet,delayed 40 mg PO DAILY #30 tabs 10/19/21 release sucralfate 100 mg/mL oral 10 ml PO QIDACHS #1,000 mL 10/19/21 suspension (Carafate) thiamine HCl (vitamin B1) 100 mg 100 mg PO DAILY #30 tabs 10/19/21 tablet vitamin A palmitate 10,000 unit 20,000 unit PO DAILY 2 weeks #28 10/19/21 tablet tabs <Lizbeth Carlson CNP - Last Filed: 02/22/22 15:28> Allergies/Adverse Reactions: Allergies Allergy/AdvReac Type Severity Reaction Status Date / Time No Known Allergies Allergy Verified 12/19/21 16:05 <Lizbeth Carlson CNP - Last Filed: 02/22/22 15:28> Review of Systems Review of Systems: Constitutional : No Weight loss, No Fever, No Chills, No Night Sweats, No Fatigue, No Malaise ENT/Mouth : No Hearing loss, No Ear Pain, No Nasal Congestion, No Sinus Pain, No Hoarseness, No sore throat, No Rhinorrhea, No Swallowing Difficulty Eyes: No Eye Pain, No Swelling, No Redness, No Foreign Body, No Discharge, No Vision Changes Cardiovascular : Complaining of chest pressure, occasionally radiating to the left arm Respiratory : No Cough, No Sputum, No Wheezing, No Smoke Exposure, No Dyspnea Gastrointestinal : No Nausea, No Vomiting, No Diarrhea, No Constipation, occasional epigastric burning, No abdominal Pain, No Hematochezia, No Melena Genitourinary : no irregular bleeding, No Dysuria, No Urinary Frequency, No Hematuria, No Urinary Incontinence, No Urgency, No Flank Pain, No Urinary Flow Changes, No Hesitancy Musculoskeletal : No joint pain, No Myalgias, No Joint Swelling Skin : No Skin Lesions, No rash Neuro : No Weakness, No Numbness, No Paresthesias, No Loss of Consciousness, No Dizziness, No Headache Psych : No Anxiety/Panic, No Depression, No SI/HI/AH/VH, No Social Issues, Heme/Lymph: No Bruising, No Bleeding,No Lymphadenopathy Endocrine : No Polyuria, No Polydipsia, No Temperature Intolerance <Ira Law MD - Last Filed: 02/22/22 19:02> COUNT INCLUDES THE [facility] Past Medical History Medical History: Medical History Asthma BMI 37.0-37.9, adult BMI 39.0-39.9,adult COVID-19 vaccine series completed GERD (gastroesophageal reflux disease) Iron deficiency Morbid (severe) obesity due to excess calories Obesity Preprocedural examination Sleep apnea Vitamin B12 deficiency Vitamin D deficiency <Lizbeth Carlson CNP - Last Filed: 02/22/22 15:28> Surgical History: Surgical History Gastric bypass status for obesity H/O: History of esophagogastroduodenoscopy (EGD) History of sleeve gastrectomy Hx of appendectomy Hx of cholecystectomy Hx of dilation and curettage Hx of tubal ligation <Lizbeth Carlson CNP - Last Filed: 02/22/22 15:28> Family History Family History: Family History Mother Depressed Anxiety Asthma Father No problems noted. Brother No problems noted. Brother Asthma Brother No problems noted. Son No problems noted. Daughter Asthma Anxiety <Lizbeth Carlson CNP - Last Filed: 02/22/22 15:28> Social History Social History: Social History Are you a primary director long term care to a significant other at home: Yes (Child 3 yrs old) Do you presently have visiting nurse or other home services: No Alcohol intake: never Patient Tobacco Use Status: Former Tobacco user Advance Directives: No Advance Directives Information Provided: No service: No Current occupational status: unemployed <Lizbeth Carlson CNP - Last Filed: 02/22/22 15:28> Physical Exam Vital Signs: Vital Signs: Last Vital Signs Temp 98.0 F 02/22/22 15:21 Pulse 83 02/22/22 15:21 Resp 20 02/22/22 15:21 BP 126/75 02/22/22 15:21 Pulse Ox 97 02/22/22 15:21 O2 Del Method 02/22/22 15:21 BMI result Body Mass Index 28.1 <Lizbeth Carlson CNP - Last Filed: 02/22/22 15:28> Vital Signs: Last Vital Signs Temp 98.0 F 02/22/22 15:21 Pulse 83 02/22/22 15:21 Resp 20 02/22/22 15:21 BP 126/75 02/22/22 15:21 Pulse Ox 97 02/22/22 15:21 O2 Del Method 02/22/22 15:21 BMI result Body Mass Index 28.1 <Ira Law MD - Last Filed: 02/22/22 19:02> Const: Other: Appearance: Alert. Oriented X3. No acute distress. Eyes: Pupils equal, round and reactive to light. ENT: Pharynx normal. Neck: Normal inspection. Neck supple. No lymph nodes noted. No crepitus CVS: Normal heart rate and rhythm. Pulses normal. Normal S1 and S2 Respiratory: No respiratory distress. Breath sounds normal. No Wheezing. No rales Abdomen: Soft and nontender. No rigidity. No distention. Skin: Skin warm and dry. Normal skin color. Normal skin turgor. Extremities: No lower extremity edema. No Lacerations. No Rash Neuro: Oriented X 3. No motor deficit. No sensory deficit. Moving all extremities. No slurred speech. CN 2 through 12 grossly intact Psych: calm, cooperative, normal affect <Ira Law MD - Last Filed: 02/22/22 19:02> Course Course Course Narrative: This is an RME: Additional HPI, ROS, PE not included below will be deferred to primary provider. Patient is a 36-year-old female with history of mild intermittent asthma, who presents emergency department for evaluation of chest pain. Localized to the left anterior chest, has been intermittent, over the past month. However, over the past 2 days the pain had increased in intensity and is occurring more frequently, described as a sharp pressure sensation. Reports that it radiates to the left shoulder and down the left arm. Denies any upper respiratory symptoms/cough, nausea, vomiting, or abdominal pain. Denies shortness of breath. Denies history of DVT/PE, oral contraceptive, malignancy, prolonged immobilization. Plan: Labs, EKG, urinalysis/ <Lizbeth Carlson CNP - Last Filed: 02/22/22 15:28> This is an RME: Additional HPI, ROS, PE not included below will be deferred to primary provider. Patient is a 36-year-old female with history of mild intermittent asthma, who presents emergency department for evaluation of chest pain. Localized to the left anterior chest, has been intermittent, over the past month. However, over the past 2 days the pain had increased in intensity and is occurring more frequently, described as a sharp pressure sensation. Reports that it radiates to the left shoulder and down the left arm. Denies any upper respiratory symptoms/cough, nausea, vomiting, or abdominal pain. Denies shortness of breath. Denies history of DVT/PE, oral contraceptive, malignancy, prolonged immobilization. Plan: Labs, EKG, urinalysis/ Of patient's labs are pending. EKG within normal limits, no acute findings. <Ira Law MD - Last Filed: 02/22/22 19:02> Medical Decision Making Medical Decision Making MDM Narrative: I discussed with the patient that her EKG, troponin and labs are within normal limits. Unlikely that her symptoms are cardiac in nature. <Ira Law MD - Last Filed: 02/22/22 19:02> Differential Diagnosis Differential Diagnoses: The differential diagnosis associated with the presentation includes (Anxiety, GERD, costochondritis) <Ira Law MD - Last Filed: 02/22/22 19:02> Lab Data [facility] Lab Attestation statement: I reviewed the patient's lab results. <Ira Law MD - Last Filed: 02/22/22 19:02> Result Diagrams: 02/22/22 15:58 02/22/22 15:58 <Lizbeth Carlson CNP - Last Filed: 02/22/22 15:28> Labs: Lab Results 02/22/22 02/22/22 02/22/22 Range/Units 15:58 15:58 15:58 WBC 9.4 (4.8-10.8) X10*3/uL RBC 4.13 L (4.20-5.50) X10*6/uL Hgb 12.2 (12.0-16.0) g/dl Hct 37.6 (37.0-47.0) % MCV 91.0 (80.0-98.0) fL MCH 29.5 (27.0-33.0) pg MCHC 32.4 (31.0-35.0) g/dl RDW 13.2 (11.0-16.0) % Plt Count 262 (160-400) X10*3/uL MPV 10.6 (9.4-12.3) fL Immature Gran % (Auto) 0.4 (0.0-0.4) % Neut % (Auto) 49.4 (45-73) % Lymph % (Auto) 40.9 H (20-40) % [place] % (Auto) 6.3 (2-11) % Eos % (Auto) 2.6 (0-4) % Baso % (Auto) 0.4 (0-2) % Lymph # (Auto) 3.8 (1.2-4.9) X10*3/uL [place] # (Auto) 0.6 (0.1-1.2) X10*3/uL Eos # (Auto) 0.2 (0.0-0.4) X10*3/uL Baso # (Auto) 0.0 (0.0-0.2) X10*3/uL Abs Immat Gran (auto) 0.04 H (0.00-0.03) X10*3/uL Absolute Neuts (auto) 4.6 (2.0-8.3) x10*3/uL Absolute Nucleated RBC 0.000 (0.0-0.012) X10*3/uL Nucleated RBC % (auto) 0.0 (0.0-0.2) /100WBC PT (10.0-13.1) SEC INR (0.9-1.1) Sodium 137 (135-145) mmol/L Potassium 3.8 (3.3-5.1) mmol/L Chloride 105 (96-108) mmol/L Carbon Dioxide 23 (22-29) mmol/L Anion Gap 13 (12-20) BUN 10 (9-16) mg/dL Creatinine 0.78 (0.5-1.4) mg/dL Estim Creat Clear Calc 93.9 Estimated GFR > 60 Random Glucose 183 H (60-115) mg/dL Calcium 8.7 (8.4-10.2) mg/dL Total Bilirubin 0.9 (0.0-1.0) mg/dL AST 21 (5-31) U/L ALT 16 (0-31) U/L Alkaline Phosphatase 93 (39-117) U/L Troponin I High Sens < 3.5 (<3.5-17.0) ng/L Total Protein 6.4 L (6.5-8.0) g/dL Albumin 3.6 (3.5-5.0) g/dL Lipase 10 (8-78) U/L Urine Color Urine Appearance Urine pH (5.0-9.0) Ur Specific [place] (1.005-1.025) Urine Protein (Neg-Trace) mg/dL Urine Glucose (UA) (Negative) mg/dL Urine Ketones (Negative) mg/dL Urine Blood (Negative) Urine Nitrite (Negative) Ur Leukocyte Esterase (Negative) Urine Test (NEGATIVE) COVID-19 (MICHAEL) (Negative) COVID-19 Clin Com Influenza Type A (VICTOR M) (Negative) Influenza Type B (VICTOR M) (Negative) Influenza A & B Note 02/22/22 02/22/22 02/22/22 Range/Units 15:58 18:09 18:09 WBC (4.8-10.8) X10*3/uL RBC (4.20-5.50) X10*6/uL Hgb (12.0-16.0) g/dl Hct (37.0-47.0) % MCV (80.0-98.0) fL MCH (27.0-33.0) pg MCHC (31.0-35.0) g/dl RDW (11.0-16.0) % Plt Count (160-400) X10*3/uL MPV (9.4-12.3) fL Immature Gran % (Auto) (0.0-0.4) % Neut % (Auto) (45-73) % Lymph % (Auto) (20-40) % [place] % (Auto) (2-11) % Eos % (Auto) (0-4) % Baso % (Auto) (0-2) % Lymph # (Auto) (1.2-4.9) X10*3/uL [place] # (Auto) (0.1-1.2) X10*3/uL Eos # (Auto) (0.0-0.4) X10*3/uL Baso # (Auto) (0.0-0.2) X10*3/uL Abs Immat Gran (auto) (0.00-0.03) X10*3/uL Absolute Neuts (auto) (2.0-8.3) x10*3/uL Absolute Nucleated RBC (0.0-0.012) X10*3/uL Nucleated RBC % (auto) (0.0-0.2) /100WBC PT 11.8 (10.0-13.1) SEC INR 1.0 (0.9-1.1) Sodium (135-145) mmol/L Potassium (3.3-5.1) mmol/L Chloride (96-108) mmol/L Carbon Dioxide (22-29) mmol/L Anion Gap (12-20) BUN (9-16) mg/dL Creatinine (0.5-1.4) mg/dL Estim Creat Clear Calc Estimated GFR Random Glucose (60-115) mg/dL Calcium (8.4-10.2) mg/dL Total Bilirubin (0.0-1.0) mg/dL AST (5-31) U/L ALT (0-31) U/L Alkaline Phosphatase (39-117) U/L Troponin I High Sens (<3.5-17.0) ng/L Total Protein (6.5-8.0) g/dL Albumin (3.5-5.0) g/dL Lipase (8-78) U/L Urine Color Urine Appearance Urine pH (5.0-9.0) Ur Specific [place] (1.005-1.025) Urine Protein (Neg-Trace) mg/dL Urine Glucose (UA) (Negative) mg/dL Urine Ketones (Negative) mg/dL Urine Blood (Negative) Urine Nitrite (Negative) Ur Leukocyte Esterase (Negative) Urine Test (NEGATIVE) COVID-19 (MICHAEL) Negative (Negative) COVID-19 Clin Com See Note Influenza Type A (VICTOR M) Negative (Negative) Influenza Type B (VICTOR M) Negative (Negative) Influenza A & B Note See Note 02/22/22 02/22/22 Range/Units 18:09 18:09 WBC (4.8-10.8) X10*3/uL RBC (4.20-5.50) X10*6/uL Hgb (12.0-16.0) g/dl Hct (37.0-47.0) % MCV (80.0-98.0) fL MCH (27.0-33.0) pg MCHC (31.0-35.0) g/dl RDW (11.0-16.0) % Plt Count (160-400) X10*3/uL MPV (9.4-12.3) fL Immature Gran % (Auto) (0.0-0.4) % Neut % (Auto) (45-73) % Lymph % (Auto) (20-40) % [place] % (Auto) (2-11) % Eos % (Auto) (0-4) % Baso % (Auto) (0-2) % Lymph # (Auto) (1.2-4.9) X10*3/uL [place] # (Auto) (0.1-1.2) X10*3/uL Eos # (Auto) (0.0-0.4) X10*3/uL Baso # (Auto) (0.0-0.2) X10*3/uL Abs Immat Gran (auto) (0.00-0.03) X10*3/uL Absolute Neuts (auto) (2.0-8.3) x10*3/uL Absolute Nucleated RBC (0.0-0.012) X10*3/uL Nucleated RBC % (auto) (0.0-0.2) /100WBC PT (10.0-13.1) SEC INR (0.9-1.1) Sodium (135-145) mmol/L Potassium (3.3-5.1) mmol/L Chloride (96-108) mmol/L Carbon Dioxide (22-29) mmol/L Anion Gap (12-20) BUN (9-16) mg/dL Creatinine (0.5-1.4) mg/dL Estim Creat Clear Calc Estimated GFR Random Glucose (60-115) mg/dL Calcium (8.4-10.2) mg/dL Total Bilirubin (0.0-1.0) mg/dL AST (5-31) U/L ALT (0-31) U/L Alkaline Phosphatase (39-117) U/L Troponin I High Sens (<3.5-17.0) ng/L Total Protein (6.5-8.0) g/dL Albumin (3.5-5.0) g/dL Lipase (8-78) U/L Urine Color Yellow Urine Appearance Clear Urine pH 8.0 (5.0-9.0) Ur Specific [place] 1.020 (1.005-1.025) Urine Protein Negative (Neg-Trace) mg/dL Urine Glucose (UA) Negative (Negative) mg/dL Urine Ketones Negative (Negative) mg/dL Urine Blood Negative (Negative) Urine Nitrite Negative (Negative) Ur Leukocyte Esterase Negative (Negative) Urine Test NEGATIVE (NEGATIVE) COVID-19 (MICHAEL) (Negative) COVID-19 Clin Com Influenza Type A (VICTOR M) (Negative) Influenza Type B (VICTOR M) (Negative) Influenza A & B Note <Lizbeth Ahumadahudson Carlson, BALLASTER - Last Filed: 02/22/22 15:28> Lab Results 02/22/22 02/22/22 02/22/22 Range/Units 15:58 15:58 15:58 WBC 9.4 (4.8-10.8) X10*3/uL RBC 4.13 L (4.20-5.50) X10*6/uL Hgb 12.2 (12.0-16.0) g/dl Hct 37.6 (37.0-47.0) % MCV 91.0 (80.0-98.0) fL MCH 29.5 (27.0-33.0) pg MCHC 32.4 (31.0-35.0) g/dl RDW 13.2 (11.0-16.0) % Plt Count 262 (160-400) X10*3/uL MPV 10.6 (9.4-12.3) fL Immature Gran % (Auto) 0.4 (0.0-0.4) % Neut % (Auto) 49.4 (45-73) % Lymph % (Auto) 40.9 H (20-40) % [place] % (Auto) 6.3 (2-11) % Eos % (Auto) 2.6 (0-4) % Baso % (Auto) 0.4 (0-2) % Lymph # (Auto) 3.8 (1.2-4.9) X10*3/uL [place] # (Auto) 0.6 (0.1-1.2) X10*3/uL Eos # (Auto) 0.2 (0.0-0.4) X10*3/uL Baso # (Auto) 0.0 (0.0-0.2) X10*3/uL Abs Immat Gran (auto) 0.04 H (0.00-0.03) X10*3/uL Absolute Neuts (auto) 4.6 (2.0-8.3) x10*3/uL Absolute Nucleated RBC 0.000 (0.0-0.012) X10*3/uL Nucleated RBC % (auto) 0.0 (0.0-0.2) /100WBC PT (10.0-13.1) SEC INR (0.9-1.1) Sodium 137 (135-145) mmol/L Potassium 3.8 (3.3-5.1) mmol/L Chloride 105 (96-108) mmol/L Carbon Dioxide 23 (22-29) mmol/L Anion Gap 13 (12-20) BUN 10 (9-16) mg/dL Creatinine 0.78 (0.5-1.4) mg/dL Estim Creat Clear Calc 93.9 Estimated GFR > 60 Random Glucose 183 H (60-115) mg/dL Calcium 8.7 (8.4-10.2) mg/dL Total Bilirubin 0.9 (0.0-1.0) mg/dL AST 21 (5-31) U/L ALT 16 (0-31) U/L Alkaline Phosphatase 93 (39-117) U/L Troponin I High Sens < 3.5 (<3.5-17.0) ng/L Total Protein 6.4 L (6.5-8.0) g/dL Albumin 3.6 (3.5-5.0) g/dL Lipase 10 (8-78) U/L Urine Color Urine Appearance Urine pH (5.0-9.0) Ur Specific [place] (1.005-1.025) Urine Protein (Neg-Trace) mg/dL Urine Glucose (UA) (Negative) mg/dL Urine Ketones (Negative) mg/dL Urine Blood (Negative) Urine Nitrite (Negative) Ur Leukocyte Esterase (Negative) Urine Test (NEGATIVE) COVID-19 (MICHAEL) (Negative) COVID-19 Clin Com Influenza Type A (VICTOR M) (Negative) Influenza Type B (VICTOR M) (Negative) Influenza A & B Note 02/22/22 02/22/22 02/22/22 Range/Units 15:58 18:09 18:09 WBC (4.8-10.8) X10*3/uL RBC (4.20-5.50) X10*6/uL Hgb (12.0-16.0) g/dl Hct (37.0-47.0) % MCV (80.0-98.0) fL MCH (27.0-33.0) pg MCHC (31.0-35.0) g/dl RDW (11.0-16.0) % Plt Count (160-400) X10*3/uL MPV (9.4-12.3) fL Immature Gran % (Auto) (0.0-0.4) % Neut % (Auto) (45-73) % Lymph % (Auto) (20-40) % [place] % (Auto) (2-11) % Eos % (Auto) (0-4) % Baso % (Auto) (0-2) % Lymph # (Auto) (1.2-4.9) X10*3/uL [place] # (Auto) (0.1-1.2) X10*3/uL Eos # (Auto) (0.0-0.4) X10*3/uL Baso # (Auto) (0.0-0.2) X10*3/uL Abs Immat Gran (auto) (0.00-0.03) X10*3/uL Absolute Neuts (auto) (2.0-8.3) x10*3/uL Absolute Nucleated RBC (0.0-0.012) X10*3/uL Nucleated RBC % (auto) (0.0-0.2) /100WBC PT 11.8 (10.0-13.1) SEC INR 1.0 (0.9-1.1) Sodium (135-145) mmol/L Potassium (3.3-5.1) mmol/L Chloride (96-108) mmol/L Carbon Dioxide (22-29) mmol/L Anion Gap (12-20) BUN (9-16) mg/dL Creatinine (0.5-1.4) mg/dL Estim Creat Clear Calc Estimated GFR Random Glucose (60-115) mg/dL Calcium (8.4-10.2) mg/dL Total Bilirubin (0.0-1.0) mg/dL AST (5-31) U/L ALT (0-31) U/L Alkaline Phosphatase (39-117) U/L Troponin I High Sens (<3.5-17.0) ng/L Total Protein (6.5-8.0) g/dL Albumin (3.5-5.0) g/dL Lipase (8-78) U/L Urine Color Urine Appearance Urine pH (5.0-9.0) Ur Specific [place] (1.005-1.025) Urine Protein (Neg-Trace) mg/dL Urine Glucose (UA) (Negative) mg/dL Urine Ketones (Negative) mg/dL Urine Blood (Negative) Urine Nitrite (Negative) Ur Leukocyte Esterase (Negative) Urine Test (NEGATIVE) COVID-19 (MICHAEL) Negative (Negative) COVID-19 Clin Com See Note Influenza Type A (VICTOR M) Negative (Negative) Influenza Type B (VICTOR M) Negative (Negative) Influenza A & B Note See Note 02/22/22 02/22/22 Range/Units 18:09 18:09 WBC (4.8-10.8) X10*3/uL RBC (4.20-5.50) X10*6/uL Hgb (12.0-16.0) g/dl Hct (37.0-47.0) % MCV (80.0-98.0) fL MCH (27.0-33.0) pg MCHC (31.0-35.0) g/dl RDW (11.0-16.0) % Plt Count (160-400) X10*3/uL MPV (9.4-12.3) fL Immature Gran % (Auto) (0.0-0.4) % Neut % (Auto) (45-73) % Lymph % (Auto) (20-40) % [place] % (Auto) (2-11) % Eos % (Auto) (0-4) % Baso % (Auto) (0-2) % Lymph # (Auto) (1.2-4.9) X10*3/uL [place] # (Auto) (0.1-1.2) X10*3/uL Eos # (Auto) (0.0-0.4) X10*3/uL Baso # (Auto) (0.0-0.2) X10*3/uL Abs Immat Gran (auto) (0.00-0.03) X10*3/uL Absolute Neuts (auto) (2.0-8.3) x10*3/uL Absolute Nucleated RBC (0.0-0.012) X10*3/uL Nucleated RBC % (auto) (0.0-0.2) /100WBC PT (10.0-13.1) SEC INR (0.9-1.1) Sodium (135-145) mmol/L Potassium (3.3-5.1) mmol/L Chloride (96-108) mmol/L Carbon Dioxide (22-29) mmol/L Anion Gap (12-20) BUN (9-16) mg/dL Creatinine (0.5-1.4) mg/dL Estim Creat Clear Calc Estimated GFR Random Glucose (60-115) mg/dL Calcium (8.4-10.2) mg/dL Total Bilirubin (0.0-1.0) mg/dL AST (5-31) U/L ALT (0-31) U/L Alkaline Phosphatase (39-117) U/L Troponin I High Sens (<3.5-17.0) ng/L Total Protein (6.5-8.0) g/dL Albumin (3.5-5.0) g/dL Lipase (8-78) U/L Urine Color Yellow Urine Appearance Clear Urine pH 8.0 (5.0-9.0) Ur Specific [place] 1.020 (1.005-1.025) Urine Protein Negative (Neg-Trace) mg/dL Urine Glucose (UA) Negative (Negative) mg/dL Urine Ketones Negative (Negative) mg/dL Urine Blood Negative (Negative) Urine Nitrite Negative (Negative) Ur Leukocyte Esterase Negative (Negative) Urine Test NEGATIVE (NEGATIVE) COVID-19 (MICHAEL) (Negative) COVID-19 Clin Com Influenza Type A (VICTOR M) (Negative) Influenza Type B (VICTOR M) (Negative) Influenza A & B Note <Ira Law MD - Last Filed: 02/22/22 19:02> Independent Interpretation I performed an independent interpretation of an: EKG (My interpretation: Sinus rhythm, heart rate 73, no ST segment depression or elevation, nonspecific T-wave inversion in lead 3, QTC 425) and Plain X-Ray (Chest x-ray my interpretation: Unremarkable) <Ira Law MD - Last Filed: 02/22/22 19:02> Radiology Impression Discussion of test interpretation with radiology: I have reviewed the radiologist's reading. <Ira Law MD - Last Filed: 02/22/22 19:02> Radiologist Impression: FINDINGS: No significant abnormality is noted involving the heart, lungs, mediastinum, bony thorax or soft tissues. XR/XR chest 2V IMPRESSION: Unremarkable examination. <Ira Law MD - Last Filed: 02/22/22 19:02> Discharge Plan Discharge Clinical Impression: Atypical chest pain <Lizbeth Carlson CNP - Last Filed: 02/22/22 15:28> Patient Disposition: Home, Self-Care <Lizbeth Carlson CNP - Last Filed: 02/22/22 15:28> Instructions: Chest Pain (ED) <Lizbeth Carlson CNP - Last Filed: 02/22/22 15:28> Additional Instructions: Please follow-up with your primary care physician tomorrow. If you have any worsening or new symptoms, please return to the emergency room or call 911 <Lizbeth Carlson CNP - Last Filed: 02/22/22 15:28> Prescriptions: No Action docusate sodium [Colace] 100 mg capsule 100 mg PO DAILY Qty: 30 2RF multivitamin Tablet 1 tab PO DAILY Qty: 30 6RF cholecalciferol (vitamin D3) 50 mcg (2,000 unit) capsule 50 mcg PO DAILY Qty: 30 6RF cyanocobalamin (vitamin B-12) 250 mcg tablet 250 mcg PO DAILY Qty: 30 6RF pantoprazole 40 mg tablet,delayed release (DR/EC) 40 mg PO DAILY Qty: 30 6RF sucralfate [Carafate] 100 mg/mL suspension 10 ml PO QIDACHS Qty: 1000 1RF thiamine HCl (vitamin B1) 100 mg tablet 100 mg PO DAILY Qty: 30 6RF vitamin A palmitate 10,000 unit tablet 20,000 unit PO DAILY 14 Days Qty: 28 0RF <Lizbeth Carlson CNP - Last Filed: 02/22/22 15:28>
[2022-02-22 16:05] LABS: MANUAL DIFF FLAG NO
[2022-02-22 16:10] LABS: Basophils Percent Auto 0.4 % (0-2); Eosinophils Absolute Auto 0.2 X10*3/uL (0.0-0.4); Eosinophils Percent Auto 2.6 % (0-4); Hematocrit 37.6 % (37.0-47.0); Hemoglobin 12.2 g/dl (12.0-16.0); Imm Gran Abs Auto 0.04 X10*3/uL (0.00-0.03); Imm Gran Pct Auto 0.4 % (0.0-0.4); Lymphocytes Absolute Auto 3.8 X10*3/uL (1.2-4.9); Lymphocytes Percent Auto 40.9 % (20-40); Mean Corpuscular HGB Conc 32.4 g/dl (31.0-35.0); Mean Corpuscular Hemoglobin 29.5 pg (27.0-33.0); Mean Platelet Volume 10.6 fL (9.4-12.3); Monocytes Absolute Auto 0.6 X10*3/uL (0.1-1.2); Monocytes Percent Auto 6.3 % (2-11); Neutrophils Absolute Auto 4.6 x10*3/uL (2.0-8.3); Neutrophils Percent Auto 49.4 % (45-73); Platelet Count 262 X10*3/uL (160-400); Red Blood Count 4.13 X10*6/uL (4.20-5.50); Red Cell Distribution Width 13.2 % (11.0-16.0); White Blood Count 9.4 X10*3/uL (4.8-10.8)
[2022-02-22 16:19] LABS: Prothrombin Time 11.8 SEC (10.0-13.1)
[2022-02-22 16:28] LABS: Alanine Aminotransferase 16 U/L (0-31); Albumin Level 3.6 g/dL (3.5-5.0); Alkaline Phosphatase 93 U/L (39-117); Anion Gap 13 (12-20); Aspartate Amino Transferase 21 U/L (5-31); Bilirubin Total 0.9 mg/dL (0.0-1.0); Blood Urea Nitrogen 10 mg/dL (9-16); Calcium 8.7 mg/dL (8.4-10.2); Carbon Dioxide 23 mmol/L (22-29); Chloride 105 mmol/L (96-108); Creatinine Clr Calc Pharmacy 93.9; Estimated Glomerular Filt Rate > 60; Glucose Random 183 mg/dL (60-115); Lipase 10 U/L (8-78); Potassium 3.8 mmol/L (3.3-5.1); Sodium 137 mmol/L (135-145); Total Protein 6.4 g/dL (6.5-8.0)
[2022-02-22 16:35] LABS: Troponin-I High Sensitivity < 3.5 ng/L (<3.5-17.0)
[2022-02-22 18:21] LABS: Appearance Urine Clear; Color Urine Yellow; Glucose Urine UA Negative (Negative); Leukocyte Esterase Urine Negative (Negative); Nitrite Urine Negative (Negative); Urine Blood Negative (Negative); Urine Ketones Negative (Negative); Urine Protein Negative (Neg-Trace)
[2022-02-22 18:26] LABS: UPreg QC Valid YES; Urine Pregnancy NEGATIVE (NEGATIVE)
[2022-02-22 18:34] LABS: COVID-19 Test Negative (Negative); IDNOW Serial# 16C4AD1C; IDNOW Serial# BCCEAD1C; Influenza A Negative (Negative); Influenza B2 Negative (Negative)
== END 2022-02-22 19:24 | disposition home or self-care (01) ==
PROVIDERS: Nurse Practitioner Family; Emergency Provider Emergency Medicine
DX: R07.89 Other chest pain (principal); M79.642 Pain in left hand; Z79.899 Other long term (current) drug therapy; Z20.822 Contact with and (suspected) exposure to COVID-19
CPT/HCPCS: 36415; 71046; 80053; 81003; 81025; 83690; 84484; 85025; 85610; 87502; 87635; 93005; 99283; 99284

== ENCOUNTER 2023-03-13 11:23 | Outpatient (AMB) | payer MEDICAID, SELFPAY ==
--- NOTE | 2023-03-13 11:13 | MHC.OFFVISWM ---
Intake VS Expanded 03/13/23 11:18 Height 5 ft 3 in Weight 168 lb BMI 29.8 Intake Visit Reasons: (telephone) PO LSG 10/10/20 Allergies No Known Allergies Allergy (Verified 12/19/21 16:05) Medication List - Last Reconciled 03/13/23 by LAQUITA Austin cholecalciferol (vitamin D3) 50 mcg PO DAILY clotrimazole 1% 1 appl topical BID cyanocobalamin (vitamin B-12) 250 mcg PO DAILY docusate sodium (Colace) 100 mg PO DAILY multivitamin 1 tab PO DAILY pantoprazole 40 mg PO DAILY sucralfate (Carafate) 10 mL PO QIDACHS thiamine HCl (vitamin B1) 100 mg PO DAILY vitamin A palmitate 20,000 units PO DAILY 2 weeks HPI HPI Comments History of Present Illness Details This?is a?37?yo female who is s/p RYGB 10/10/2020. Presents for 2 year 5 month post op visit. Weight at last visit on 12/19/2021 was 156 pounds with a BMI of 28, weight today is 168 pounds, representing a 12 pound weight gain. Pt continues to have issues with hypoglycemia. Tries to eat every 2-3 hours, nothing with too much sugar. Present meal plan includes: 3am- wakes up, has coffee and sometimes breakfast biscuits 4am- starts work at last visit suggested protein water after starting work to prevent low blood sugars 9:45am- 2 eggs, or cafe latte protein shake, or banana 11:45am- salad with chicken 1:45pm- OJ, sometimes yogurt 5:30pm- salad and rice, chicken 8pm- bedtime Pt has glucose tabs and OJ available for when blood sugar gets low as well. Pt tries to eat 3 meals and 2 snacks per day. This has helped her to be better controlled. She does not have a CGM, checks with finger sticks. Exercise- has a machine Pt reports issues of excess skin of abdomen. She has been experiencing itchy rashes in the skin folds. Moisture collects in the skin fold and develops an unpleasant smell. During exercise or daily walking, skin gets in the way and causes discomfort. [facility] Medical History Asthma BMI 37.0-37.9, adult BMI 39.0-39.9,adult COVID-19 vaccine series completed GERD (gastroesophageal reflux disease) Iron deficiency Morbid (severe) obesity due to excess calories Obesity Preprocedural examination Sleep apnea Vitamin B12 deficiency Vitamin D deficiency Surgical History Gastric bypass status for obesity H/O: History of esophagogastroduodenoscopy (EGD) History of sleeve gastrectomy Hx of appendectomy Hx of cholecystectomy Hx of dilation and curettage Hx of tubal ligation Family History Mother Depressed Anxiety Asthma Father No problems noted. Brother No problems noted. Brother Asthma Brother No problems noted. Son No problems noted. 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 No history of diabetes prior to surgery. Clotrimazole ointment sent to pharmacy for issues of excess skin. Labs ordered. Discussed getting BMI closer to 25 prior to consideration of skin removal surgery. RTC 6-8 weeks in office for exam and to monitor issues of excess skin. Patient is overweight and is not considered stable at this time. I spent a total of 30 minutes reviewing/updating records, examining the patient and counseling the patient on weight management as detailed above. Orders: Orders Hemoglobin A1c Today K91.2 - Postsurgical malabsorption, not elsewhere classified, Z98.84 - Bariatric surgery status Complete Blood Count Auto Diff Today K91.2 - Postsurgical malabsorption, not elsewhere classified, Z98.84 - Bariatric surgery status Lipid Panel Today K91.2 - Postsurgical malabsorption, not elsewhere classified, Z98.84 - Bariatric surgery status Vitamin B1 Today K91.2 - Postsurgical malabsorption, not elsewhere classified, Z98.84 - Bariatric surgery status TSH reflex Free T4 Today K91.2 - Postsurgical malabsorption, not elsewhere classified, Z98.84 - Bariatric surgery status Vitamin D 25-OH Total Today K91.2 - Postsurgical malabsorption, not elsewhere classified, Z98.84 - Bariatric surgery status Insulin Today K91.2 - Postsurgical malabsorption, not elsewhere classified, Z98.84 - Bariatric surgery status IRON PROFILE Today K91.2 - Postsurgical malabsorption, not elsewhere classified, Z98.84 - Bariatric surgery status Comprehensive Met. Panel Today K91.2 - Postsurgical malabsorption, not elsewhere classified, Z98.84 - Bariatric surgery status Vitamin B12 and Folate Today K91.2 - Postsurgical malabsorption, not elsewhere classified, Z98.84 - Bariatric surgery status Zinc Today K91.2 - Postsurgical malabsorption, not elsewhere classified, Z98.84 - Bariatric surgery status C Reactive Protein Today K91.2 - Postsurgical malabsorption, not elsewhere classified, Z98.84 - Bariatric surgery status Vitamin A Today K91.2 - Postsurgical malabsorption, not elsewhere classified, Z98.84 - Bariatric surgery status Ferritin Today K91.2 - Postsurgical malabsorption, not elsewhere classified, Z98.84 - Bariatric surgery status Medications: New clotrimazole 1% 1 appl topical BID 45 grams 3RF Refilled sucralfate (Carafate) 10 mL PO QIDACHS 1,000 mL 1RF pantoprazole 40 mg PO DAILY 30 tabs 6RF K20.90 - Esophagitis, unspecified without bleeding Coding Level of Care Code Est Pt Level 4 (69863) Diagnoses 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
[2023-03-13 11:18] VITALS: BMI 29.8
== END 2023-03-13 11:34 | disposition home or self-care (01) ==
LOC: HO.HBS 11:23
PROVIDERS: Visit Provider Physician Assistant Surgical
DX: K91.2 Postsurgical malabsorption, not elsewhere classified (principal); E66.3 Overweight; Z98.84 Bariatric surgery status
CPT/HCPCS: 99213

== ENCOUNTER → 2023-03-13 11:23 | Outpatient (BNVA) | payer MEDICAID, SELFPAY | PROVIDERS: Visit Provider Physician Assistant Surgical | DX: E66.3 Overweight (principal); K91.2 Postsurgical malabsorption, not elsewhere classified; Z98.84 Bariatric surgery status; Z68.29 Body mass index [BMI] 29.0-29.9, adult | CPT/HCPCS: 99212 ==

== ENCOUNTER 2023-03-25 11:28 | Outpatient (AMB) | payer MEDICAID, SELFPAY ==
--- NOTE | 2023-03-25 10:33 | A.OFFVIS_ITS ---
Intake Intake Visit Reasons: (TV) PO LSG 10/10/20 Nickel Plant Operator Required: No Allergies No Known Allergies Allergy (Verified 12/19/21 16:05) HPI Nutrition Presentation Details referral due to reactive hypoglycemia post GBP 2020 Diet Assmnt Details Notices hypoglycemia 1-4 hours after eating - doesn't happen after every meal but she isn't able to identify when she experiences it/which foods cause it. She asks what foods are sources of carbs so we reviewed this today . Educated her on how to build a healthy plate to prevent reactive hypoglycemia and get enough protein. She states tomorrow she is going to start with 3 shakes and 2 meals. states she cant start today because she is too busy. States she must lose weight for skin removal and asks how to accomplish this. Diagnosis Nutrition problem #1 altered nutrition labs As related to (etiology) #1 altered metabolism nutri and unwilling to learn/apply As evidenced by (sign/symptom) #1 abnormal serum lipids Monitoring/Goals Nutrition problem monitoring total energy intake, HgbA1c, level of knowledge/skill, total PRO intake, glucose, fasting, total CHO intake and weight Learning/Education Educational materials provided Yes Most Recent Diabetes Results: Cholesterol 189 mg/dL 10/25/21 HDL Cholesterol 54 mg/dL 10/25/21 Triglycerides 67 mg/dL 10/25/21 Creatinine 0.78 mg/dL (0.5-1.4) 02/22/22 Blood Urea Nitrogen 10 mg/dL (9-16) 02/22/22 Sodium 137 mmol/L (135-145) 02/22/22 Potassium 3.8 mmol/L (3.3-5.1) 02/22/22 Chloride 105 mmol/L (96-108) 02/22/22 Carbon Dioxide 23 mmol/L (22-29) 02/22/22 Calcium 8.7 mg/dL (8.4-10.2) 02/22/22 AST 21 U/L (5-31) 02/22/22 ALT 16 U/L (0-31) 02/22/22 Total Protein 6.4 g/dL (6.5-8.0) L 02/22/22 Albumin 3.6 g/dL (3.5-5.0) 02/22/22 [facility] Medical History Asthma BMI 37.0-37.9, adult BMI 39.0-39.9,adult COVID-19 vaccine series completed GERD (gastroesophageal reflux disease) Iron deficiency Morbid (severe) obesity due to excess calories Obesity Preprocedural examination Sleep apnea Vitamin B12 deficiency Vitamin D deficiency Surgical History Gastric bypass status for obesity H/O: History of esophagogastroduodenoscopy (EGD) History of sleeve gastrectomy Hx of appendectomy Hx of cholecystectomy Hx of dilation and curettage Hx of tubal ligation Family History Mother Depressed Anxiety Asthma Father No problems noted. Brother No problems noted. Brother Asthma Brother No problems noted. Son No problems noted. Daughter Asthma Anxiety Social History Are you a primary wound care coordinator to a significant other at home: Yes (Child 3 yrs old) Do you presently have visiting nurse or other home services: No Alcohol intake: never Patient Tobacco Use Status: Former Tobacco user service: No Current occupational status: unemployed Assessment & Plan Assessment & Plan (1) Gastric bypass status for obesity: Comment: 10/10/20 Code(s): Z98.84 - Bariatric surgery status Plan see below Patient Instructions: Education provided on food sources of carb, fat and protein, how to balance plate to prevent reactive hypoglycemia, avoiding carbs. Encouraged beginning today and avoiding framing dietary changes as lifelong rather than temporary and just for skin removal. I encouraged she keep a food journal with her blood sugars logged as well. Sent information via email in palauan Telehealth Telehealth Location of provider rendering services: practice address Location of patient: address on file Patient Identification confirmed using: Name, : Yes Telehealth method: voice only Patient verbally consented to treatment: Yes Patient verbally consented to billing insurance company: Yes Patient informed of any privacy concerns related to visit: Yes Minutes spent on Phone/Video with Pt.: 20 Coding Level of Care Code Nutr Indiv Subseq ([id number]) Diagnoses Gastric bypass status for obesity Z98.84 Time Spent (min) 20
--- OUTSIDE RECORDS SUMMARY | 2023-03-25 11:30 | XMS_ITS | Continuity of Care Document ---
Author Name Unknown Organization [facility] Address [address] [place] [address]- Care Team Providers Care Engineering Test Specialist Name Role Phone Not on Staff, PCP Primary Care Physician Unavail able Encounter [facility] Date(s): 04/12/20 - 05/12/20 [facility] [address] [place] [address]- Attending Physician: Nova Underwood Admitting Physician: Admtr Ar8 Referring Physician: Admtr, Ar8 Allergies, Adverse Reactions, Alerts No Known Medication Allergies
--- OUTSIDE RECORDS SUMMARY | 2023-03-25 11:30 | XMS_ITS | Continuity of Care Document ---
Author Name Unknown Organization [facility] Address Unknown Care Team Providers Care Sales Service Rep Name Role Phone Enoc Hurley Primary Care Physician Encounter [facility] [place] Date(s): 08/22/21 - 09/21/21 [facility] Allergies, Adverse Reactions, Alerts No Known Allergies Medications Omeprazole By Mouth, Daily, 0 Refills, Maintenance, 01/20/21 18:14:00 EST, Partial fill upon patient request if the prescription is for a schedule II opioid drug. Start Date: 01/20/21 Status: Ordered Social History Social History Type Response Smoking Status Never (less than 100 in lifetime) entered on: 01/20/21 Sex
--- OUTSIDE RECORDS SUMMARY | 2023-03-25 11:30 | XMS_ITS | Continuity of Care Document ---
Author Name Unknown Organization [facility] Address [address] [place] [address]- Care Team Providers Care Gum Scoring Machine Operator Name Role Phone Not on Staff, PCP Primary Care Physician Unavail able Encounter [facility] Date(s): 12/30/19 - 02/04/20 [facility] [address] [address]- Attending Physician: Saúl Mcneil MD Admitting Physician: Saúl Mcneil MD Referring Physician: Saúl Mcneil MD Allergies, Adverse Reactions, Alerts No Known Medication Allergies
--- OUTSIDE RECORDS SUMMARY | 2023-03-25 11:30 | XMS_ITS | Continuity of Care Document ---
Author Name Unknown Organization [facility] Address [address] [place] [address]- Care Team Providers Care Crane Man Name Role Phone Not on Staff, PCP Primary Care Physician Unavail able Encounter [facility] Date(s): 10/03/20 - 10/04/[address] [address]- Discharge Disposition: A-D/C Home Attending Physician: Sofia Crabtree MD Admitting Physician: Sofia Crabtree MD Referring Physician: Not on Staff, Referring MD Allergies, Adverse Reactions, Alerts No Known Medication Allergies Substance Reaction Severity Status NKA Active Results Radiology Reports * Exam Date Time Procedure Performing Provider Status 10/03/20 7:26 PM Chest 2 Views Frontal and Lat Linda Nuñez; Auth (Verified) Notes: (Chest 2 Views Frontal and Lat) Reason For Exam: Chest Pain;Other: RESULT: Chest 2 Views Frontal and Lat Chest 2 Views Frontal and Lat Hx of Present Illness: pt here 1 mo ago w R sided chest pain, xray lab neg and d c'd. pt reports x1day having R sided dull chest pressure radiating to L side and sharp intermittent pain to the R side of the back. pt denies sob, pt does not have PCP. scheduled to have surgery T; Reason: Other:; Chest Pain; Clinical Question(s): Other: COMPARISON: None. FINDINGS: LINES AND TUBES: None. LUNGS AND PLEURA: Clear lungs. Normal pulmonary vascularity. No pleural effusion. No pneumothorax. HEART, MEDIASTINUM AND EDEL: Heart is normal in size. Normal upper mediastinal and hilar contour. BONES AND SOFT TISSUES: No acute abnormality. IMPRESSION: Normal chest x-ray. WSN: [id number] Ordering Physician: Kenrick Valdez Dictated By: Cherie Juwan JOHN Dictated Date/Time: 10/03/20 7:28 pm Reviewed By: Juwan Crespo MD Signed By: Juwan Crespo MD Signed Date/Time: 10/03/20 7:28 pm Transcribed By: KATERINA Transcribed Date/Time: 10/03/20 7:27 pm Vital Signs Most recent to oldest [Reference Range]: 1 2 Height 160 cm (10/04/20 12:00 AM) 160 cm (10/03/20 7:09 PM) Weight 101.5 kg (10/04/20 12:00 AM) 101.5 kg (10/03/20 7:09 PM) Oxygen Saturation [94-100 %] 98 % (10/04/20 12:00 AM) 100 % (10/03/20 7:09 PM) Pulse Rate [55-90 bpm] 68 bpm (10/04/20 12:00 AM) 77 bpm (10/03/20 7:09 PM) Body Mass Index [18.5-24.99] 39.65 *>HHI* (10/04/20 12:00 AM) Blood Pressure [90-138/55-84 mm Hg] 119/ 77mm Hg (10/04/20 12:00 AM) 120/73mm Hg (10/03/20 7:09 PM) Respiratory Rate [16-30 br/min] 16 br/mi n (10/04/20 12:00 AM) 17 br/min (10/03/20 7:09 PM) Temperature [96.8-100.4 DegF] 97.1 DegF (10/03/20 7:09 PM) Mode of Delivery (Oxygen) Room air (10/04/20 12:00 AM) Room air (10/03/20 7:09 PM) Blood pressure sites Arm, left (10/04/20 12:00 AM) Arm, left (10/03/20 7:09 PM) Temperature Route Oral (10/03/20 7:09 PM) Dry Weight 101.5 kg (10/04/20 12:00 AM) 101.5 kg (10/03/20 7:09 PM) Weight Obtained Via Standing scale (10/03/20 7:09 PM) Dry Weight Obtained Via Standing scale (10/03/20 7:09 PM)
--- OUTSIDE RECORDS SUMMARY | 2023-03-25 11:30 | XMS_ITS | Continuity of Care Document ---
Author Name Unknown Organization [facility] Address [address] [place] [address]- Care Team Providers Care Practice Manager Name Role Phone Not on Staff, PCP Primary Care Physician Unavail able Encounter [facility] Date(s): 08/29/20 - 08/29/[address] [address]- Discharge Disposition: A-D/C Home Attending Physician: Rukhsana Bellamy MD Admitting Physician: Rukhsana Bellamy MD Referring Physician: Not on Staff, Referring MD Allergies, Adverse Reactions, Alerts No Known Medication Allergies Results Radiology Reports * Exam Date Time Procedure Performing Provider Status 08/29/20 5:20 PM Chest 2 Views Frontal and Lat Roxanna Patricia; Hawa (Verified) Notes: (Chest 2 Views Frontal and Lat) Reason For Exam: Chest Pain;Other: RESULT: Chest 2 Views Frontal and Lat Chest 2 Views Frontal and Lat Hx of Present Illness: Pt with CP for 3 days, got worse at 3:30 am. Mild SOB, Denies cough or fever. Pt reports pain radiates to left shoulder. No numbness . No previous episodes like this. Takes diet pills for 2 months. Pain worse with breathing in and out; Reason: Other:; Chest Pain; Clinical Question(s): Other: COMPARISON: None. FINDINGS: LINES AND TUBES: None. LUNGS AND PLEURA: Clear lungs. Normal pulmonary vascularity. No pleural effusion. No pneumothorax. HEART, MEDIASTINUM AND EDEL: Heart is normal in size. Normal upper mediastinal and hilar contour. BONES AND SOFT TISSUES: No acute abnormality. IMPRESSION: No acute abnormality. WSN: [id number] Ordering Physician: Rukhsana Bellamy Dictated By: Arnaldo Edward MD Dictated Date/Time: 08/29/20 5:28 pm Reviewed By: Arnaldo Edward MD Signed By: Arnaldo Edward MD Signed Date/Time: 08/29/20 5:28 pm Transcribed By: KATERINA Transcribed Date/Time: 08/29/20 5:27 pm Vital Signs Most recent to oldest [Reference Range]: 1 2 Height 160 cm (08/29/20 6:44 PM) 160 cm (08/29/20 4:37 PM) Weight 103.2 kg (08/29/20 6:44 PM) 103.2 kg (08/29/20 4:37 PM) Oxygen Saturation [94-100 %] 99 % (08/29/20 6:44 PM) 100 % (08/29/20 4:37 PM) Pulse Rate [55-90 bpm] 88 bpm (08/29/20 6:44 PM) 98 bpm *H* (08/29/20 4:37 PM) Body Mass Index [18.5-24.99] 40.31 *>HHI* (08/29/20 6:44 PM) Blood Pressure [90-138/55-84 mm Hg] 117/ 79mm Hg (08/29/20 6:44 PM) 152/82mm Hg *H* (08/29/20 4:37 PM) Respiratory Rate [16-30 br/min] 14 br/mi n *L* (08/29/20 6:44 PM) 18 br/min (08/29/20 4:37 PM) Temperature [96.8-100.4 DegF] 97.7 DegF (08/29/20 4:37 PM) Mode of Delivery (Oxygen) Room air (08/29/20 6:44 PM) Room air (08/29/20 4:37 PM) Blood pressure sites Arm, left (08/29/20 6:44 PM) Temperature Route Oral (08/29/20 4:37 PM) Dry Weight 103.2 kg (08/29/20 6:44 PM) 103.2 kg (08/29/20 4:37 PM)
--- OUTSIDE RECORDS SUMMARY | 2023-03-25 11:30 | XMS_ITS | Continuity of Care Document ---
Author Name Unknown Organization [facility] Address [address] [place] [id number]- Care Team Providers Care Shoe Treer Name Role Phone Raymundo SUN, Radha Primary Care Physician Encounter [facility] Date(s): 02/08/21 - 03/29/[address] [address] Attending Physician: Radha Fonseca NP Admitting Physician: Radha Fonseca NP Referring Physician: Radha Fonseca NP Allergies, Adverse Reactions, Alerts No Known Allergies Medications Omeprazole By Mouth, Daily, 0 Refills, Maintenance, 01/20/21 18:14:00 EST, Partial fill upon patient request if the prescription is for a schedule II opioid drug. Start Date: 01/20/21 Status: Ordered Social History Social History Type Response Smoking Status Never (less than 100 in lifetime) entered on: 01/20/21 Sex
--- OUTSIDE RECORDS SUMMARY | 2023-03-25 11:31 | XMS_ITS | Continuity of Care Document ---
Author Name Unknown Organization [facility] Address Unknown Care Team Providers Care Pasteurizer Helper Name Role Phone Raymundo SUN, Radha Primary Care Physician Encounter [facility] [id number] Date(s): 02/14/21 - 04/19/21 [facility] Attending Physician: Bertha Mercado MD Referring Physician: Radha Fonseca NP Allergies, Adverse [...]
--- OUTSIDE RECORDS SUMMARY | 2023-03-25 11:31 | XMS_ITS | Continuity of Care Document ---
Author Name Unknown Organization [facility] ter Address [address] [place] [address]- Care Team Providers Care Erosion Control Coordinator Name Role Phone Enoc Hurley Primary Care Physician Encounter [facility] [place] [facility] Date(s): 03/13/22 - 05/12/[address] [address] Attending Physician: Tarun JOHN, Saúl Hernandes Allergies, Adverse Reactions, Alerts No Known Allergies Medications Multivitamin Daily, 0 Refills, Maintenance, 11/20/21 16:04:00 EDT, Partial fill upon patient request if the prescription is for a schedule II opioid drug. Start Date: 11/20/21 Status: Ordered oxyCODONE 5 mg oral tablet 5 mg, 1, tablet, By Mouth, Every 4 hours, PRN, *Take with food *No driving *No Alcohol/THC, Refills0, Tot. Refills 0, Maintenance, as needed for pain, 05/08/22 12:58:00 EDT, Partial fill upon patient request if the prescription is for a schedule II... Start Date: 05/08/22 Status: Ordered Ventolin HFA 108 mcg/inh inhalation aerosol with adapter 1 puffs, Inhalation, 4 times a day, PRN for wheezing, # 18 Gm, 0 Refills, Maintenance, 04/09/22 9:28:00 EST, Aerosol, Partial fill upon patient request if the prescription is for a schedule II opioiddrug. Start Date: 04/09/22 Status: Ordered Vitamin B1 Daily, 0 Refills, Maintenance, 11/20/21 16:05:00 EDT, Partial fill upon patient request if the prescription is for a schedule II opioid drug. Start Date: 11/20/21 Status: Ordered Vitamin B12 50 mcg oral tablet 1 tablet = 50 mcg, By Mouth, Daily, # 30 tablet, 0 Refills, Maintenance, 11/20/21 16:04:00 EDT, Tablet, Partial fill upon patient request if the prescription is for a schedule II opioid drug. Start Date: 11/20/21 Status: Ordered Vitamin D3 oral tablet 1 tablet = 10 mcg, By Mouth, Daily, 0 Refills, Maintenance, 11/20/21 16:04:00 EDT, Partial fill upon patient request if the prescription is for a schedule II opioid drug. Start Date: 11/20/21 Status: Ordered Social History Social History Type Response Smoking Status Never (less than 100 in lifetime) entered on: 01/20/21 Sex Patient Care team information Care Team Personnel Name: Enoc Hurley Position: S Outreach Member Role: PCP Address: Address: [address] [place] [address]- Care Team Related Persons Name: LEOBARDO CHARLES Address: [address] [address] Name: ZAHRAA LARA Address: [address] [address] Name: CADY LARA Address: [place] [address] Name: HANNAH RAIN
--- OUTSIDE RECORDS SUMMARY | 2023-03-25 11:31 | XMS_ITS | Continuity of Care Document ---
Author Name Unknown Organization [facility] ter Address [address] [place] [address]- Care Team Providers Care Blackener Name Role Phone Not on Staff, PCP Primary Care Physician Unavail able Encounter [facility] Date(s): 04/10/20 - 04/10/[address] [address]- Discharge Disposition: A-D/C Home Attending Physician: Logan Jaquez DO Admitting Physician: Logan Jaquez DO Referring Physician: Not on Staff, Referring MD Allergies, Adverse Reactions, Alerts No Known Medication Allergies Results Radiology Reports * Exam Date Time Procedure Performing Provider Status 04/10/20 3:18 PM Chest Portable Carlene Michaels; Haaw ( Verified) Notes: (Chest Portable) Reason For Exam: Shortness of Breath RESULT: Chest Portable Chest Portable AP upright 2:54 PM 04/10/2020. Reason: Shortness of Breath; Clinical Question(s): CHF COMPARISON: 09/14/2019. FINDINGS: LINES AND TUBES: None. LUNGS AND PLEURA: Clear lungs. Normal pulmonary vascularity. No pleural effusion. No pneumothorax. HEART, MEDIASTINUM AND EDEL: Heart is normal in size. Normal upper mediastinal and hilar contour. BONES AND SOFT TISSUES: No acute abnormality. IMPRESSION: No acute abnormality. I have personally reviewed the images and I agree with this report. WSN: [id number] Ordering Physician: Lisandra Chong Dictated By: Irwin Louis MD Dictated Date/Time: 04/10/20 3:38 pm Reviewed By: Mariano Lewis MD Signed By: Mariano Lewis MD Signed Date/Time: 04/10/20 3:43 pm Transcribed By: KATERINA Transcribed Date/Time: 04/10/20 3:26 pm Vital Signs Most recent to oldest [Reference Range]: 1 2 3 Oxygen Saturation [94-100 %] 100 % (04/10/20 6:03 PM) 100 % (04/10/20 5:18 PM) 99 % (04/10/20 4:25 PM) Pulse Rate [55-90 bpm] 78 bpm (04/10/20 6:03 PM) 77 bpm (04/10/20 5:18 PM) 81 bpm (04/10/20 4:25 PM) Blood Pressure [90-138/55-84 mm Hg] 118/64mm Hg (04/10/20 6:03 PM) 120/62mm Hg (04/10/20 5:18 PM) 128/90mm Hg (04/10/20 2:37 PM) Respiratory Rate [16-30 br/min] 16 br/min (04/10/20 6:03 PM) 18 br/min (04/10/20 5:18 PM) 16 br/min (04/10/20 4:25 PM) Temperature [96.8-100.4 DegF] 98 DegF (04/10/20 6:03 PM) 98.4 DegF (04/10/20 5:18 PM) 98.3 DegF (04/10/20 2:37 PM) Mode of Delivery (Oxygen) Room air (04/10/20 6:03 PM) Room air (04/10/20 5:18 PM) Room air (04/10/20 4:25 PM) Blood pressure sites Arm, right (04/10/20 6:03 PM) Arm, right (04/10/20 5:18 PM) Arm, right (04/10/20 2:37 PM) Temperature Route Oral (04/10/20 6:03 PM) Oral (04/10/20 5:18 PM) Oral (04/10/20 2:37 PM)
--- OUTSIDE RECORDS SUMMARY | 2023-03-25 11:31 | XMS_ITS | Continuity of Care Document ---
Author Name Unknown Organization [facility] Address [address] [place] [address]- Care Team Providers Care Word Processor Operator Name Role Phone Not on Staff, PCP Primary Care Physician Unavail able Encounter [facility] Date(s): 04/12/20 - 04/19/20 [facility] [address] [place] [address]- Encounter Diagnosis Chest pain in adult(Discharge Diagnosis) - 04/12/20 Nocturnal hypoxemia(Discharge Diagnosis) - 04/12/20 COVID-19 virus infection(Discharge Diagnosis) - 04/12/20 Attending Physician: Not on Staff, Attending MD Referring Physician: Koki Kitchen MD Allergies, Adverse Reactions, Alerts No Known Medication Allergies Problem List Diagnosis Diagnosis Type Effective Dates Health Status Cl inical Service Informant Chest pain in adult Discharge Diagnosis 04/12/20 Nocturnal hypoxemia Discharge Diagnosis 04/12/20 COVID-19 virus infection Discharge Diagnosis 04/12/20
--- OUTSIDE RECORDS SUMMARY | 2023-03-25 11:31 | XMS_ITS | Continuity of Care Document ---
Author Name Unknown Organization [facility] Address [address] [place] [address] ve [address] [place] [address]- Care Team Providers Care Supervisor Sound Technician Name Role Phone Enoc Hurley Primary Care Physician [place] [facility] [place] - 11/27/[address] [place] [address]- Attending Physician: Bertha Mercado MD Referring Physician: Enoc Hurley Allergies, Adverse Reactions, Alerts No Known Allergies Medications Multivitamin Daily, 0 Refills, Maintenance, 11/20/21 16:04:00 EDT, Partial fill upon patient request if the prescription is for a schedule II opioid drug. Start Date: 11/20/21 Status: Ordered Pantoprazole Daily, 0 Refills, Maintenance, 11/20/21 16:04:00 EDT Start Date: 11/20/21 Status: Ordered sucralfate 1 gm oral tablet 1 Gm, 1, tablet, By Mouth, 4 times a day, # 120 tablet, Refills 0, Maintenance, 11/20/21 16:05:00 EDT, Partial fill upon patient request if the prescription is for a schedule II opioid drug. Start Date: 11/20/21 Status: Ordered Vitamin B1 Daily, 0 Refills, [...] opioid drug. Start Date: 11/20/21 Status: Ordered Vital Signs Most recent to oldest [Reference Range]: 1 Height 160 cm (11/20/21 4:01 PM) Weight 72.4 kg (11/20/21 4:01 PM) Pulse Rate [55-90 bpm] 62 bpm (11/20/21 4:01 PM) Body Mass Index [18.5-24.99 kg/m2] 28.28 kg/m2 *H* (11/20/21 4:01 PM) Blood Pressure [90-138/55-84 mm Hg] 104/ 70mm Hg (11/20/21 4:01 PM) Respiratory Rate [16-30 br/min] 16 br/mi n (11/20/21 4:01 PM) Temperature [96.8-100.4 DegF] 97.3 DegF (11/20/21 4:01 PM) Blood pressure sites Arm, left (11/20/21 4:01 PM) Temperature Route Temporal (11/20/21 4:01 PM) Weight Obtained Via Standing scale (11/20/21 4:01 PM) Social History Social History Type Response Smoking Status Never (less than 100 in lifetime) entered on: 01/20/21 Sex Patient Care team information Personnel Name: Enoc Hurley Address: Address: [address] [place] [address]
--- OUTSIDE RECORDS SUMMARY | 2023-03-25 11:31 | XMS_ITS | Continuity of Care Document ---
Author Name Unknown Organization [facility] Address [address] [place] [address]- Care Team Providers Care Wort Extractor Name Role Phone Not on Staff, PCP Primary Care Physician Unavail able Encounter [facility] Date(s): 01/20/21 - 01/20/[address] [address]- Discharge Disposition: A-D/C Home Attending Physician: Lin Paniagua MD Admitting Physician: Lin Paniagua MD Referring Physician: Not on Staff, Referring MD Allergies, Adverse Reactions, Alerts No Known Medication Allergies Substance Reaction Severity Status NKA Active Medications methocarbamol 500 mg oral tablet 2 tablet = 1,000 mg, By Mouth, 4 times a day, PRN Pain , Moderate, # 20 tablet, 0 Refills, Acute 01/26/21 19:53:00 EST, 01/20/21 19:52:00 EST, Tablet, [facility]/pharmacy #[id number], Partial fill upon patient request if the prescription is for a schedule II opioi... Start Date: 01/20/21 Stop Date: 01/26/21 Status: Ordered Omeprazole By Mouth, Daily, 0 Refills, Maintenance, 01/20/21 18:14:00 EST, Partial fill upon patient request if the prescription is for a schedule II opioid drug. Start Date: 01/20/21 Status: Ordered Vital Signs Most recent to oldest [Reference Range]: 1 2 Height 160 cm (01/20/21 8:01 PM) 160 cm (01/20/21 6:08 PM) Weight 84.6 kg (01/20/21 6:08 PM) Oxygen Saturation [94-100 %] 100 % (01/20/21 8:01 PM) 100 % (01/20/21 6:08 PM) Pulse Rate [55-90 bpm] 58 bpm (12/4/21 8:01 PM) 79 bpm (01/20/21 6:08 PM) Blood Pressure [90-138/55-84 mm Hg] 117/ 70mm Hg (01/20/21 8:01 PM) 122/71mm Hg (01/20/21 6:08 PM) Respiratory Rate [16-30 br/min] 16 br/mi n (01/20/21 6:08 PM) Temperature [96.8-100.4 DegF] 98.1 DegF (01/20/21 6:08 PM) Mode of Delivery (Oxygen) Room air (01/20/21 8:01 PM) Room air (01/20/21 6:08 PM) Blood pressure sites Arm, left (01/20/21 8:01 PM) Arm, left (01/20/21 6:08 PM) Temperature Route Oral (01/20/21 6:08 PM) Dry Weight 84.6 kg (01/20/21 6:08 PM) Weight Obtained Via Standing scale (01/20/21 6:08 PM) Dry Weight Obtained Via Standing scale (01/20/21 6:08 PM) Social History Social History Type Response Smoking Status Never (less than 100 in lifetime) entered on: 01/20/21 Sex
--- OUTSIDE RECORDS SUMMARY | 2023-03-25 11:31 | XMS_ITS | Continuity of Care Document ---
Author Name Unknown Organization [facility] Address [address] [place] [address] [address] [place] [address]- Care Team Providers Care Business Rules Developer Name Role Phone Enoc Hurley Primary Care Physician Encounter [facility] [place] Date(s): 08/22/21 - 10/24/[address] [place], [place] [id number]- us Attending Physician: Bertha Mercado MD Referring Physician: [...] 100 in lifetime) entered on: 01/20/21 Sex Care Team Personnel Name: Enoc Hurley Address: [address] [place] [id number]
--- OUTSIDE RECORDS SUMMARY | 2023-03-25 11:31 | XMS_ITS | Continuity of Care Document ---
Author Name Unknown Organization [facility] Address [address] [place] [address]- Care Team Providers Care Leather Fitter Name Role Phone Not on Staff, PCP Primary Care Physician Unavail able Encounter [facility] [place] Date(s): 02/14/20 - 03/15/20 [facility] [address] [place] [address]- Attending Physician: Nova Underwood Admitting Physician: Admtr, Ar8 Referring Physician: Admtr, Ar8 Allergies, Adverse Reactions, Alerts No Known Medication Allergies
--- OUTSIDE RECORDS SUMMARY | 2023-03-25 11:31 | XMS_ITS | Continuity of Care Document ---
Author Name Unknown Organization [facility] Address [address] [place] [address] [address] [place] [address]- Care Team Providers Care Emergency Department Rn Name Role Phone Enoc Hurley Primary Care Physician [phone] Encounter [facility] [place] Date(s): 02/08/22 - 03/10/22 [facility] [address] [place], [place] [address] Attending Physician: Nova Underwood Admitting Physician: Nova Underwood Referring Physician: AdmtrNova Allergies, Adverse Reactions, Alerts No Known Allergies [...] Care Team Personnel Name: Enoc Hurley Position: [facility] Outreach Member Role: PCP Address: Address: [address] [place] [address]- Care Team Related Persons Name: LEOBARDO CHARLES Address: [place] [address] Name: ZAHRAA LARA Address: [address] [address] Name: CADY [place]ARA Address: [place] [address] Name: HANNAH RAIN
--- OUTSIDE RECORDS SUMMARY | 2023-03-25 11:31 | XMS_ITS | Continuity of Care Document ---
Author Name Unknown Organization [facility] Address [address] [place] [address]- Care Team Providers Care Manager Flight Operations Name Role Phone Not on Staff, PCP Primary Care Physician Unavail able Encounter [facility] Date(s): 09/14/19 - 09/14/[address] [address]- [facility] Discharge Disposition: A-D/C Home Attending Physician: Anat Boyle MD Admitting Physician: Anat Boyle MD Referring Physician: Not on Staff, Referring MD Allergies, Adverse Reactions, Alerts No Known Medication Allergies Medications cyclobenzaprine 7.5 mg oral tablet 1 tablet = 7.5 mg, By Mouth, 2 times a day, PRN for spasm, # 10 tablet, 0 Refills, Acute 09/20/19 22:22:00 EDT, 09/14/19 22:20:00 EDT, Tablet, [id number], 160, cm, 09/14/19 19:45:00 EDT, Height, 116.4, kg, 09/14/19 19:45:00 EDT, Dry W... Start Date: 09/14/19 Stop Date: 09/20/19 Status: Ordered Results Radiology Reports * Exam Date Time Procedure Performing Provider Status 09/14/19 9:40 PM Chest 2 Views Frontal and Lat Linda Nuñez; Auth (Verified) Notes: (Chest 2 Views Frontal and Lat) Reason For Exam: Pleuritic Pain RESULT: Chest 2 Views Frontal and Lat Chest 2 Views Frontal and Lat Refer to EMR; Reason: Pleuritic Pain; Clinical Question(s): Pneumothorax; Hx of Present Illness: Stephen has had left flank pain x1 week; Other Objective Findings: pt is alert and oriented x3, good color for ethnicity, walking with strong steady gait, speaking in clear, full sentences, lungs clear,abdomen soft and non tender to touch. ith strong steady gait, speaking in clear, full sentences, vikas COMPARISON: None. FINDINGS: LINES AND TUBES: None. LUNGS AND PLEURA: Clear lungs. Normal pulmonary vascularity. No pleural effusion. No pneumothorax. HEART, MEDIASTINUM AND EDEL: Heart is normal in size. Normal mediastinal and hilar contour. BONES AND SOFT TISSUES: No acute abnormality. IMPRESSION: No acute abnormality. WSN: [id number] Ordering Physician: Twila Rivera Dictated By: Juwan Crespo MD Dictated Date/Time: 09/14/19 10:35 p Reviewed By: Juwan Crespo MD Signed By: Juwan Crespo MD Signed Date/Time: 09/14/19 10:35 pm Transcribed By: KATERINA Transcribed Date/Time: 09/14/19 10:34 pm Vital Signs Most recent to oldest [Reference Range]: 1 2 3 Height 160 cm (09/14/19 10:27 PM) 160 cm (09/14/19 7:45 PM) Weight 116.4 kg (09/14/19 10:27 PM) 116.4 kg (09/14/19 7:45 PM) 116.4 kg (09/14/19 7:44 PM) Oxygen Saturation [94-100 %] 97 % (09/14/19 10:27 PM) 98 % (09/14/19 7:45 PM) Pulse Rate [55-90 bpm] 76 bpm (09/14/19 10:27 PM) 82 bpm (09/14/19 7:45 PM) Body Mass Index [18.5-24.99] 45.47 *>HHI* (09/14/19 10:27 PM) Blood Pressure [90-138/55-84 mm Hg] 122/78mm Hg (09/14/19 10:27 PM) 126/89mm Hg (09/14/19 7:45 PM) Respiratory Rate [16-30 br/min] 17 br/min (09/14/19 10:27 PM) 16 br/min (09/14/19 7:45 PM) Liters per Minute 0 L/min (09/14/19 10:27 PM) Mode of Delivery (Oxygen) Room air (7/28/20 10:27 PM) Room air (09/14/19 7:45 PM) Blood pressure sites Arm, left (09/14/19 10:27 PM) Arm, left (09/14/19 7:45 PM) Dry Weight 116.4 kg (09/14/19 10:27 PM) 116.4 kg (09/14/19 7:45 PM) 116.4 kg (09/14/19 7:44 PM) Weight Obtained Via Standing scale (09/14/19 7:45 PM) Standing scale (09/14/19 7:44 PM) Dry Weight Obtained Via Standing scale (09/14/19 7:45 PM) Standing scale (09/14/19 7:44 PM)
--- OUTSIDE RECORDS SUMMARY | 2023-03-25 11:31 | XMS_ITS | Continuity of Care Document ---
Author Name Unknown Organization [facility] Address [address] [place] [address]- Care Team Providers Care Horseback Riding Instructor Name Role Phone Enoc Hurley Primary Care Physician [phone] Encounter [facility] [place] Date(s): 12/10/21 - 01/09/22 [facility] [address] [place] [address]- Allergies, Adverse Reactions, Alerts No Known Allergies [...] S Outreach Member Role: PCP Address: Address: [address] [place] [address]- Care Team Related Persons Name: LEOBARDO CHARLES Address: home [address] [place] [address] Name: ZAHRAA LARA Address: [place] [address] Name: HANNAH RAIN
== END 2023-03-25 11:33 | disposition home or self-care (01) ==
LOC: HO.HBS 11:28
PROVIDERS: Visit Provider Dietitian, Registered
DX: Z98.84 Bariatric surgery status (principal)

== ENCOUNTER → 2023-03-25 11:28 | Outpatient (BNVA) | payer MEDICAID, SELFPAY | PROVIDERS: Visit Provider Dietitian, Registered | DX: Z98.84 Bariatric surgery status (principal) | CPT/HCPCS: 97803 ==

== ENCOUNTER 2023-05-05 08:46 | Emergency (ER) | payer MEDICAID, SELFPAY ==
--- NOTE | ~2023-05-05 | CT_ITS ---
EXAMINATION: CT ABDOMEN AND PELVIS WITHOUT CONTRAST CLINICAL INFORMATION: Abdominal pain COMPARISON: Abdominal ultrasound 02/08/2021 TECHNIQUE: Multidetector volumetric imaging was performed from the superior aspect of the liver through the pubic symphysis. Sagittal and coronal reformatted images were obtained on the technologist's workstation. This CT examination was performed using dose optimization techniques as appropriate, variously including the following: *Automated exposure control *Adjustment of mA and/or kV according to patient size (this includes techniques or standardized protocols for targeted exams where dose is matched to indication/reason for exam; i.e. extremities or head) *Use of iterative reconstruction technique DLP: 454 mGy-cm FINDINGS: LUNG BASES: The visualized lung bases are unremarkable. LIVER, GALLBLADDER, AND BILIARY TREE: The liver is normal in size, shape, and attenuation. No focal hepatic lesion or biliary ductal dilatation is present. Status post cholecystectomy. PANCREAS: Unremarkable. SPLEEN: Unremarkable. ADRENAL GLANDS: Unremarkable. KIDNEYS AND URETERS: The kidneys are normal in size, shape, and attenuation. No hydronephrosis, hydroureter, or calculi seen. No perinephric stranding. BLADDER: Unremarkable. GASTROINTESTINAL TRACT: Status post gastric bypass. Small bowel anastomoses are seen in the left midabdomen. No evidence of small bowel obstruction. The right and transverse colon are filled with fluid. The appendix is not seen and surgical clips are seen in the region of the appendix. ABDOMINAL WALL: No significant hernia is appreciated. LYMPH NODES: No retroperitoneal lymphadenopathy. VASCULAR: Unremarkable. PELVIC VISCERA: The retroareolar uterus and adnexa are unremarkable. OSSEOUS STRUCTURES: Unremarkable. CT/CT abdomen pelvis wo IV con IMPRESSION: 1. A cause for the patient's abdominal pain has not been found. 2. Incidental note made of gastric bypass, cholecystectomy and appendectomy. Fleischner guidelines were followed.
[2023-05-05 09:04] VITALS: BP 109/66; PULSE 105; RESP 16; TEMP 36.1; O2SAT 99; BMI 31.7
[2023-05-05 09:40] LABS: MANUAL DIFF FLAG NO
[2023-05-05 09:41] LABS: Basophils Percent Auto 0.1 % (0-2); Eosinophils Percent Auto 0.4 % (0-4); Hematocrit 39.7 % (37.0-47.0); Hemoglobin 13.3 g/dl (12.0-16.0); Imm Gran Abs Auto 0.02 X10*3/uL (0.00-0.03); Imm Gran Pct Auto 0.3 % (0.0-0.4); Lymphocytes Absolute Auto 0.4 X10*3/uL (1.2-4.9); Lymphocytes Percent Auto 5.2 % (20-40); Mean Corpuscular HGB Conc 33.5 g/dl (31.0-35.0); Mean Corpuscular Hemoglobin 30.2 pg (27.0-33.0); Mean Platelet Volume 10.6 fL (9.4-12.3); Monocytes Absolute Auto 0.6 X10*3/uL (0.1-1.2); Monocytes Percent Auto 7.6 % (2-11); Neutrophils Absolute Auto 6.5 x10*3/uL (2.0-8.3); Neutrophils Percent Auto 86.4 % (45-73); Platelet Count 224 X10*3/uL (160-400); Red Blood Count 4.41 X10*6/uL (4.20-5.50); Red Cell Distribution Width 12.9 % (11.0-16.0); White Blood Count 7.5 X10*3/uL (4.8-10.8)
[2023-05-05 09:55] LABS: Alanine Aminotransferase 21 U/L (0-31); Albumin Level 3.9 g/dL (3.5-5.0); Alkaline Phosphatase 90 U/L (39-117); Anion Gap 12 (12-20); Aspartate Amino Transferase 19 U/L (5-31); Bilirubin Total 2.3 mg/dL (0.0-1.0); Blood Urea Nitrogen 11 mg/dL (9-16); Calcium 8.8 mg/dL (8.4-10.2); Carbon Dioxide 23 mmol/L (22-29); Chloride 107 mmol/L (96-108); Creatinine Clr Calc Pharmacy 86.4; Estimated Glomerular Filt Rate > 60; Glucose Random 136 mg/dL (60-115); Sodium 138 mmol/L (135-145); Total Protein 7.1 g/dL (6.5-8.0)
[2023-05-05 09:57] LABS: Influenza A PCR NEGATIVE (Negative); Influenza B PCR NEGATIVE (Negative); Resp Syncy Virus RNA Qual PCR NEGATIVE (Negative); SARS COV2 PCR INHOUSE NEGATIVE (Negative)
[2023-05-05 09:59] LABS: Appearance Urine Cloudy; Color Urine Dark Yellow; Glucose Urine UA Negative (Negative); Leukocyte Esterase Urine Trace (Negative); Nitrite Urine Negative (Negative); PH 5.5 (5.0-9.0); Specific Gravity - Urine >= 1.030 (1.005-1.025); UMIC TRIGGER UACC YES; Urine Blood Negative (Negative); Urine Ketones Negative (Negative); Urine Protein 30 (1+) mg/dL (Neg-Trace)
[2023-05-05 10:07] LABS: Bacteria Urine Trace (None Seen); RBC Urine 0-2 /HPF (0-2); WBC Urine 0-5 /HPF (0-5)
--- NOTE | 2023-05-05 10:08 | ED_ITS ---
HPI - Nausea/Vomiting/Diarrhea General Chief complaint: Nausea/Vomiting/Diarrhea Stated complaint: diarrhea abd pain Time Seen by Provider: 05/05/23 09:34 Source: patient Mode of arrival: ambulatory Limitations: no limitations History of Present Illness HPI Narrative: This is a 37-year-old female past medical history of obesity status post gastric bypass with complications of hypoglycemia, constipation, asthma presenting to the emergency department with complaints of diffuse abdominal pain worse in the epigastric region, fatigue, malaise, diarrhea. Patient reports over 16 episodes of completely liquid diarrhea she reports it is a brown/yellow color. No recent travel, atypical foods, antibiotic use. Patient denies fevers, chills, nausea, vomiting, recent sick contacts, chest pain, shortness of breath, headache, vision changes, dizziness and weakness. Related Data Previous Rx's Medication Instructions Recorded multivitamin 1 tab PO DAILY #30 tabs 02/19/21 docusate sodium 100 mg capsule 100 mg PO DAILY #30 caps 03/12/21 (Colace) cholecalciferol (vitamin D3) 50 50 mcg PO DAILY #30 caps 10/19/21 mcg (2,000 unit) capsule cyanocobalamin (vitamin B-12) 250 250 mcg PO DAILY #30 tabs 10/19/21 mcg tablet thiamine HCl (vitamin B1) 100 mg 100 mg PO DAILY #30 tabs 10/19/21 tablet vitamin A palmitate 3,000 mcg 20,000 unit PO DAILY 2 weeks #28 10/19/21 (10,000 unit) tablet tabs clotrimazole 1 % topical cream 1 appl topical BID #45 grams 03/13/23 pantoprazole 40 mg tablet,delayed 40 mg PO DAILY #30 tabs 03/13/23 release sucralfate 100 mg/mL oral 10 ml PO QIDACHS #1,000 mL 03/13/23 suspension (Carafate) loperamide 2 mg capsule 2 mg PO Q6H PRN loose stool #30 05/05/23 (Anti-Diarrheal (loperamide)) caps Allergies Allergy/AdvReac Type Severity Reaction Status Date / Time No Known Allergies Allergy Verified 12/19/21 16:05 Review of Systems 2 Review of Systems: Yes all other systems are reviewed and are negative PMFSH Past Medical History Attestation statement: The following information was validated with the patient. Source: old records reviewed and nursing notes reviewed Medical History Gastric bypass status for obesity BMI 37.0-37.9, adult COVID-19 vaccine series completed Preprocedural examination BMI 39.0-39.9,adult Obesity Iron deficiency Vitamin D deficiency Vitamin B12 deficiency Sleep apnea GERD (gastroesophageal reflux disease) Asthma Morbid (severe) obesity due to excess calories Surgical History Gastric bypass status for obesity H/O: History of esophagogastroduodenoscopy (EGD) History of sleeve gastrectomy Hx of appendectomy Hx of cholecystectomy Hx of dilation and curettage Hx of tubal ligation Family History Family History Mother Depressed Anxiety Asthma Father No problems noted. Brother No problems noted. Brother Asthma Brother No problems noted. Son No problems noted. Daughter Asthma Anxiety Social History Social History Are you a primary child care associate to a significant other at home: Yes (Child 3 yrs old) Do you presently have visiting nurse or other home services: No Alcohol intake: never Patient Tobacco Use Status: Former Tobacco user Smoked in Last 30 Days: No Use of substances other than those prescribed or required for medical reasons: No Advance Directives: No Advance Directives Information Provided: No service: No Current occupational status: unemployed Physical Exam 2 Vital Signs: Vital Signs: Last Vital Signs Temp 96.9 F 05/05/23 09:04 Pulse 105 H 05/05/23 09:04 Resp 16 05/05/23 09:04 BP 109/66 05/05/23 09:04 Pulse Ox 99 05/05/23 09:04 O2 Del Method Room Air 05/05/23 09:04 BMI result Body Mass Index 31.7 vss Appearance: Alert.? Oriented X3.? No acute distress.? Head: Normocephalic, atraumatic, no step-offs or deformities Eyes: Pupils equal, round and reactive to light.? Neck: Normal inspection.? Neck supple.? CVS: Normal heart rate and rhythm.? Pulses normal.? Respiratory: No respiratory distress.? Breath sounds normal.? Abdomen: Soft and Diffuse abd pain w/ normoactivebowel sounds .? Skin: Skin warm and dry.? Normal skin color.? Normal skin turgor.? Extremities: No lower extremity edema.? No calf ttp. 5/5 strength to bilateral upper and lower extremities Neuro: Oriented X 3.? No motor deficit.? No sensory deficit. CN 2-12 intact Course Reevaluation(s) Reevaluation #1: CBC unremarkable. Chemistry elevated bilirubin 2.3 likely secondary to viral illness, no point tenderness/exquisite tenderness to the right upper quadrant. Negative Mcnair's sign. I do not suspect obstructing stone, cholangitis, choledocholithiasis. UA likely contaminated. There is trace bacteria patient without specific urinary symptoms will not treat for UTI. Flu, COVID, RSV negative. Stool studies pending. CT abdomen and pelvis a cause for the patient's abdominal pain has not been found. Incidental note of gastric bypass, cholecystectomy and appendectomy. Patient to be discharged home with loperamide. Stool studies pending and will be called with results. Educated patient on diagnosis and treatment plan, answered all question, patient verbalizes understanding. At this time patient will be discharged home, advised to return with new or worsening symptoms. Educated on worrisome signs and symptoms and when to return. At this time I feel comfortable discharge home. Time: 11:45 Medical Decision Making Medical Decision Making [facility] Narrative: 37-year-old female presents with fatigue, malaise, diarrhea, abdominal pain since yesterday. Physical exam with diffuse mild abdominal tenderness. Normoactive bowel sounds. Vital signs stable. History and physical exam concerning for viral illness. Less likely obstruction. Gastroenteritis also in the differential. Will rule out diverticulitis. Unlikely acute abdomen, pancreatitis, appendicitis ( s/p apendectomy), cholecystitis ( s/p cholecystectomy). Will also rule out metabolic derangements, UTI. Unlikely C diff Plan will obtain stool studies, labs, urine, viral test. Differential Diagnosis Differential Diagnoses: The differential diagnosis associated with the presentation includes History and physical exam concerning for viral illness. Less likely obstruction. Gastroenteritis also in the differential. Will rule out diverticulitis. Unlikely acute abdomen, pancreatitis, appendicitis, cholecystitis. Will also rule out metabolic derangements, UTI. Unlikely C diff Admission/Observation Consideration of admission/observation: Escalation of care including admission/observation considered Possible based off presentation Lab Data [facility] Lab Attestation statement: I reviewed the patient's lab results. 05/05/23 09:34 05/05/23 09:34 Labs: Lab Results 05/05/23 05/05/23 05/05/23 Range/Units 09:09 09:34 09:50 WBC 7.5 (4.8-10.8) X10*3/uL RBC 4.41 (4.20-5.50) X10*6/uL Hgb 13.3 (12.0-16.0) g/dl Hct 39.7 (37.0-47.0) % MCV 90.0 (80.0-98.0) fL MCH 30.2 (27.0-33.0) pg MCHC 33.5 (31.0-35.0) g/dl RDW 12.9 (11.0-16.0) % Plt Count 224 (160-400) X10*3/uL MPV 10.6 (9.4-12.3) fL Immature Gran % (Auto) 0.3 (0.0-0.4) % Neut % (Auto) 86.4 H (45-73) % Lymph % (Auto) 5.2 L (20-40) % Nobles % (Auto) 7.6 (2-11) % Eos % (Auto) 0.4 (0-4) % Baso % (Auto) 0.1 (0-2) % Lymph # (Auto) 0.4 L (1.2-4.9) X10*3/uL Nobles # (Auto) 0.6 (0.1-1.2) X10*3/uL Eos # (Auto) 0.0 (0.0-0.4) X10*3/uL Baso # (Auto) 0.0 (0.0-0.2) X10*3/uL Abs Immat Gran (auto) 0.02 (0.00-0.03) X10*3/uL Absolute Neuts (auto) 6.5 (2.0-8.3) x10*3/uL Absolute Nucleated RBC 0.000 (0.0-0.012) X10*3/uL Nucleated RBC % (auto) 0.0 (0.0-0.2) /100WBC Sodium 138 (135-145) mmol/L Potassium 4.0 (3.3-5.1) mmol/L Chloride 107 (96-108) mmol/L Carbon Dioxide 23 (22-29) mmol/L Anion Gap 12 (12-20) BUN 11 (9-16) mg/dL Creatinine 0.89 (0.5-1.4) mg/dL Estim Creat Clear Calc 86.4 Estimated GFR > 60 Random Glucose 136 H (60-115) mg/dL Calcium 8.8 (8.4-10.2) mg/dL Total Bilirubin 2.3 H (0.0-1.0) mg/dL AST 19 (5-31) U/L ALT 21 (0-31) U/L Alkaline Phosphatase 90 (39-117) U/L Total Protein 7.1 (6.5-8.0) g/dL Albumin 3.9 (3.5-5.0) g/dL Urine Color Dark Yellow Urine Appearance Cloudy Urine pH 5.5 (5.0-9.0) Ur Specific [place] >= 1.030 H (1.005-1.025) Urine Protein 30 (1+) H (Neg-Trace) mg/dL Urine Glucose (UA) Negative (Negative) mg/dL Urine Ketones Negative (Negative) mg/dL Urine Blood Negative (Negative) Urine Nitrite Negative (Negative) Ur Leukocyte Esterase Trace H (Negative) Urine RBC 0-2 (0-2) /HPF Urine WBC 0-5 (0-5) /HPF Ur Squamous Epith Cells 6-10 (0-2) /HPF Urine Bacteria Trace (None Seen) Hyaline Casts 3-5 (0-2) /LPF Influenza Type A (PCR) NEGATIVE (Negative) Influenza Type B (PCR) NEGATIVE (Negative) RSV RNA Qual (PCR) NEGATIVE (Negative) SARS-CoV-2 RNA (RT-PCR) NEGATIVE (Negative) Independent Interpretation I performed an independent interpretation of an: CT Scan ( CT/CT abdomen pelvis wo IV con IMPRESSION: 1. A cause for the patient's abdominal pain has not been found. 2. Incidental note made of gastric bypass, cholecystectomy and appendectomy. Fleischner guidelines were followed.) Radiology Impression Discussion of test interpretation with radiology: I have reviewed the radiologist's reading. External Record Review External record reviewed: Inpatient record, Office record, Outpatient record, Prior outpatient labs, Prior outpatient radiology, Primary care record and Outside ED record Prescription Management I considered prescription management with: Other (loperamide ) Chronic Conditions Patient?s care impacted by: Other (Obesity, asthma, diaphragmatic hernia, hypoglycemia) Critical Care Time Critical Care Time Critical Care Time: No Discharge Plan Discharge Clinical Impression: Viral illness, Diarrhea Patient Disposition: Home, Self-Care Instructions: Acute Diarrhea (ED), Viral Syndrome (ED), Nutrition Tips for Relief of Diarrhea (ED) Additional Instructions: Take your medications as prescribed. If you were prescribed antibiotics today, it is important that you take your medication to their entirety, do not skip any doses, do not finish them early. Follow-up with your primary care provider this week. Return to the emergency department with new or worsening symptoms. Such as fevers, chills, chest pain, shortness of breath, nausea, vomiting, dizziness, headache, vision changes, lethargy In case of emergency call 911 Stool studies were sent down to the lab for analysis, you will be called if results are positive. Please take loperamide as needed for diarrhea and as prescribed. CT/CT abdomen pelvis wo IV con IMPRESSION: 1. A cause for the patient's abdominal pain has not been found. 2. Incidental note made of gastric bypass, cholecystectomy and appendectomy. Fleischner guidelines were followed. Prescriptions: New loperamide [Anti-Diarrheal (loperamide)] 2 mg capsule 2 mg PO Q6H PRN (Reason: loose stool) Qty: 30 0RF No Action docusate sodium [Colace] 100 mg capsule 100 mg PO DAILY Qty: 30 2RF multivitamin Tablet 1 tab PO DAILY Qty: 30 6RF cholecalciferol (vitamin D3) 50 mcg (2,000 unit) capsule 50 mcg PO DAILY Qty: 30 6RF cyanocobalamin (vitamin B-12) 250 mcg tablet 250 mcg PO DAILY Qty: 30 6RF thiamine HCl (vitamin B1) 100 mg tablet 100 mg PO DAILY Qty: 30 6RF vitamin A palmitate 10,000 unit tablet 20,000 unit PO DAILY 14 Days Qty: 28 0RF clotrimazole 1 % cream 1 appl topical BID Qty: 45 3RF pantoprazole 40 mg tablet,delayed release (DR/EC) 40 mg PO DAILY Qty: 30 6RF sucralfate [Carafate] 100 mg/mL suspension 10 ml PO QIDACHS Qty: 1000 1RF Referrals: Vesna Verma DO [Emergency Provider] - 2 days Physician,Unknown J [Primary Care Provider] - Stand Alone Forms: Work/School Release
[2023-05-05 12:12] VITALS: BP 00/00; PULSE 0; RESP 0; TEMP -17.7; TEMP 0
[2023-05-05 14:09] LABS: Adenovirus F 40/41 Not Detected (Not Detect.); Astrovirus Not Detected (Not Detect.); Campylobacter Not Detected (Not Detect.); Cryptosporidium Not Detected (Not Detect.); Cyclospora cayetanensis Not Detected (Not Detect.); E. coli EAEC Not Detected (Not Detect.); E. coli EPEC Not Detected (Not Detect.); E. coli ETEC Not Detected (Not Detect.); E. coli STEC Not Detected (Not Detect.); Entamoeba histolytica Not Detected (Not Detect.); Giardia lamblia Not Detected (Not Detect.); Plesiomonas shigelloides Not Detected (Not Detect.); Rotavirus A Not Detected (Not Detect.); Salmonella Not Detected (Not Detect.); Sapovirus Not Detected (Not Detect.); Shigella sp./EIEC Not Detected (Not Detect.); Vibrio Not Detected (Not Detect.); Vibrio Cholerae Not Detected (Not Detect.); Yersinia enterocolitica Not Detected (Not Detect.)
[2023-05-07 09:45] LABS: Norovirus Stool PCR DETECTED
== END 2023-05-05 12:13 | disposition home or self-care (01) ==
PROVIDERS: Physician Assistant; Emergency Provider Emergency Medicine
DX: B34.9 Viral infection, unspecified (principal); R19.7 Diarrhea, unspecified; J45.909 Unspecified asthma, uncomplicated; Z98.84 Bariatric surgery status; Z11.52 Encounter for screening for COVID-19; Z20.828 Contact with and (suspected) exposure to other viral communicable diseases
CPT/HCPCS: 0241U; 36415; 74176; 80053; 81001; 85025; 87507; 99284

== ENCOUNTER 2024-10-12 10:37 | Outpatient (AMB) | payer MEDICAID, SELFPAY ==
--- NOTE | 2024-10-12 10:49 | A.OFFVIS_ITS ---
VS Expanded 10/12/24 10:57 BP 122/62 Blood Pressure Location Rt brachial Blood Pressure Position Sitting Pulse 64 Pulse Source Pulse Oximeter Temp 97.4 F Temperature Source Temporal Artery Scan Pulse Oximetry 97 Oxygen Delivery Method Room Air Height 5 ft 3 in Weight 176 lb 3.2 oz BMI 31.2 Body Fat % 35.0 Body Fat Mass 61.8 Fat Free Mass 114.4 Visceral Fat Rating 7.0 Body Water % 46.4 Body Water Mass 81.8 Muscle Mass/Score 108.6 Basal Metabolic Rate/Score 1,564 Intake Visit Reasons: (OV) PO LSG 10/10/20 Allergies ibuprofen Allergy (Mild, Verified 10/12/24 10:54) Stomach Upset Medication List - Last Reconciled 10/12/24 by LAQUITA Austin cholecalciferol (vitamin D3) 50 mcg PO DAILY gabapentin 400 mg PO BID pantoprazole 40 mg PO DAILY HPI Comments Details: This?is a?39?yo F who is s/p RYGB10/10/2020. Presents for 4y post op visit. Weight gain of 8.2lb since last OV in Feb 2023. Pt reports some abdominal pain when eating; pain starts on right side and radiates around to back. Sometimes when she has to use the bathroom to have a bowel movement she notices the pain as well. Has a normal BM every day for the most part. No nausea when this occurs. No tobacco, sometimes NSAIDs. She notices that she started to gain weight after starting a few medications for fibromyalgia, particularly gabapentin. Present meal plan includes: continues to occasionally have episodes of low blood sugar- sometimes as low as 40-50 eats 5x/day to help this; uses protein shakes like Premier powder which she mixes with almond milk; each shake 1 scoop in 8oz UAM Pure protein bar half in afternoon, half at night will sometimes have a banana, watermelon, mandarin orange- will eat this by itself will have a meal with chicken or red meat, salad, tomato, cheese, sometimes crackers with tuna, wheat bread but if eating crackers or bread blood sugar will drop drinks water with crystal light PFSH Medical History Gastric bypass status for obesity BMI 37.0-37.9, adult COVID-19 vaccine series completed Preprocedural examination BMI 39.0-39.9,adult Obesity Iron deficiency Vitamin D deficiency Vitamin B12 deficiency Sleep apnea GERD (gastroesophageal reflux disease) Asthma Morbid (severe) obesity due to excess calories Surgical History H/O: History of esophagogastroduodenoscopy (EGD) Hx of dilation and curettage Hx of appendectomy History of sleeve gastrectomy Hx of tubal ligation Hx of cholecystectomy Family History Mother Depressed Anxiety Asthma Father No problems noted. Brother No problems noted. Brother Asthma Brother No problems noted. Son No problems noted. Daughter Asthma Anxiety Social History Are you a primary grounds caretaker to a significant other at home: Yes (Child 3 yrs old) Do you presently have visiting nurse or other home services: No Alcohol intake: never Patient Tobacco Use Status: Former Tobacco user service: No Current occupational status: unemployed Physical Exam Vital Signs: Last Vital Signs Temp 97.4 F 10/12/24 10:57 Pulse 64 10/12/24 10:57 BP 122/62 10/12/24 10:57 Pulse Ox 97 10/12/24 10:57 Oxygen Delivery Method Room Air 10/12/24 10:57 BMI result Body Mass Index 31.2 Assessment & Plan Assessment & Plan (1) S/P gastric bypass: Code(s): Z98.84 - Bariatric surgery status Category: Surgical (2) Obesity: Code(s): E66.9 - Obesity, unspecified Category: Medical (3) Hypoglycemia after GI (gastrointestinal) surgery: Code(s): K91.2 - Postsurgical malabsorption, not elsewhere classified Category: Medical Plan RUQ US for R sided pain, labs including LFTs. PPI for prophylaxis as pt reports occasional NSAID use- discussed the risks of this. Nutrition consult to endocrinology dietitian to help with hypoglycemic episodes. Also gave pt Advanced Catheter TherapiesI addie and encouraged her to follow a moderate plan and follow closely to help prevent hypoglycemia. Pt interested in phentermine. Her insurance requires this prior to GLP1 and at this time with her blood sugar control she may not be the best candidate for GLP1. She understands need to take BP daily and text me measurements. RTC 3mo. Orders: Orders Insulin Today K91.2 - Postsurgical malabsorption, not elsewhere classified, Z98.84 - Bariatric surgery status Complete Blood Count Auto Diff Today K91.2 - Postsurgical malabsorption, not elsewhere classified, Z98.84 - Bariatric surgery status Lipid Panel Today K91.2 - Postsurgical malabsorption, not elsewhere classified, Z98.84 - Bariatric surgery status IRON PROFILE Today K91.2 - Postsurgical malabsorption, not elsewhere classified, Z98.84 - Bariatric surgery status Zinc Today K91.2 - Postsurgical malabsorption, not elsewhere classified, Z98.84 - Bariatric surgery status Vitamin B12 and Folate Today K91.2 - Postsurgical malabsorption, not elsewhere classified, Z98.84 - Bariatric surgery status Comprehensive Met. Panel Today K91.2 - Postsurgical malabsorption, not elsewhere classified, Z98.84 - Bariatric surgery status TSH reflex Free T4 Today K91.2 - Postsurgical malabsorption, not elsewhere classified, Z98.84 - Bariatric surgery status Ferritin Today K91.2 - Postsurgical malabsorption, not elsewhere classified, Z98.84 - Bariatric surgery status Bilirubin Total Today K91.2 - Postsurgical malabsorption, not elsewhere classi fied, Z98.84 - Bariatric surgery status Vitamin A Today K91.2 - Postsurgical malabsorption, not elsewhere classified, Z98.84 - Bariatric surgery status Vitamin B1 Today K91.2 - Postsurgical malabsorption, not elsewhere classified, Z98.84 - Bariatric surgery status C Reactive Protein Today K91.2 - Postsurgical malabsorption, not elsewhere classified, Z98.84 - Bariatric surgery status Vitamin D 25-OH Total Today K91.2 - Postsurgical malabsorption, not elsewhere classified, Z98.84 - Bariatric surgery status US abdomen limited Today R10.11 - Right upper quadrant pain, Z98.84 - Bariatric surgery status Referrals Nutrition/Dietitian Referral K91.2 - Postsurgical malabsorption, not elsewhere classified Medications: New pantoprazole 40 mg PO DAILY 90 tabs 3RF
[2024-10-12 10:57] VITALS: BP 122/62; PULSE 64; TEMP 36.3; O2SAT 97; BMI 31.2
--- OUTSIDE RECORDS SUMMARY | 2024-10-12 11:29 | XMS_ITS | Clinical Summary ---
Author Organization [facility] Address [address] [place] [address] Phone Care Team Providers Care Personnel Scheduler Name Role Phone Enco Echeverria Primary Care Provider [phone] Allergies Active Allergy Reactions Criticality Noted Date Comments Ibuprofen GI intolerance 04/05/2022 Medications diphenhydrAMINE (BENADRYL) 25 mg capsule Take 1 capsule (25 mg total) by mouth every 6 (six) hours if needed. Active albuterol HFA (PROAIR HFA ; PROVENTIL HFA ; VENTOLIN HFA) 90 mcg/actuation inhaler 2 puffs 2 minutes apart every 4 hours when necessary cough. Pharmacist: please supply with AeroChamber spacer device and instruct on use with MDI. 9 Active GABAPENTIN ORAL Take by mouth. 375 mg daily Active omeprazole (PriLOSEC) [address] capsule Take 20 mg by mouth Active Active Problems Problem Noted Date Diagnosed Date ASCUS with positive high risk HPV cervical 12/14 Overview (03/31/2024): Pap 11/2019 - ASCUS, positive HPV Colpo 12/15/2019 - ECC and biopsy at 11:00 - benign Surgical History Surgery Date Site/Laterality Comments APPENDECTOMY PROCEDURE: [place] APPENDEC INDICATED PURPOSE OTH MAJOR PX NOT SPX OTHER SURGICAL HISTORY 2016 PROCEDURE: [place] LAPS GSTR RSTCV PX W/BYP&SM INT RCNSTJ MYOMECTOMY PROCEDURE: [place] LAPS MYOMECTOMY EXC 1-4 MYOMAS 250 GM/< CARPAL TUNNEL RELEASE PROCEDURE: [place] NEUROPLASTY &/TRANSPOS MEDIAN NRV CARPAL TUNNE SECTION PROCEDURE: HISTORICAL DELIVERY OTHER SURGICAL HISTORY 12/2019 PROCEDURE: LAP, SURG, RADFREQ ABLATION OF UTERINE FIBROID(S), INC INTRAOP GUIDE Medical History Medical History Date Comments Asthma DX:Asthma Gastritis DX:Gastritis Family History Medical History Relation Name Comments Breast cancer Aunt 1 Uterine cancer Aunt 2 Other: unknown Father Nephrolithiasis Maternal Grandmother Other: Diabetes, Hypertension, depresion Mother Other: cardiac Paternal Grandmother Relation Name Status Comments Aunt 1 Alive Aunt 2 Alive Father Maternal Grandfather Maternal Grandmother Alive Mother Alive Paternal Grandfather Paternal Grandmother Social History Tobacco Use Types Packs/Day Years Used Date Smoking Tobacco: Never Smokeless Tobacco: Never Alcohol Use Standard Drinks/Week Comments No 0 (1 standard drink = 0.6 oz pur e alcohol) Comments No Sex and Gender Information Value Date Recorded Sex Assigned at Not on file Legal Sex Female 2:00 AM EST Gender Identity Not on file Sexual Orientation Not on file Obstetrics History Para Term AB IAB SAB Ectopic Multiple Livin g Live Births 2 Last Filed Vital Signs Vital Sign Reading Time Taken Comments Blood Pressure 118/74 06/27/2023 10:23 AM EDT Pulse 71 06/27/2023 10:23 AM EDT Temperature - - Respiratory Rate - - Oxygen Saturation - - Inhaled Oxygen Concentration - - Weight 80.7 kg (178 lb) 03/19/2024 10:38 AM EST Height 160 cm (5' 3 ) 03/19/2024 10:38 AM EST Body Mass Index 31.53 03/19/2024 10:38 AM EST Plan of Treatment Health Maintenance Due Date Last Done Comments HIV Screening 01/25/2022 Social Influencers of Health Screening 01/25/2022 Hepatitis B Vaccines (2 of 2 - CpG 2-dose series) 12/10/2022 11/12/2022 COVID-19 Vaccine ( season) 2023 02/23/2021, 06/28/2020, 06/07/2020 Depression Screening 02/18/2024 Influenza Vaccine (#1) 2024 , 11/12/2022, 02/20/2021 Breast Cancer Screening 03/19/2026 03/19/19 25, 03/17/2023, 03/14/2022, Additional history exists DTaP,Tdap,and Td Vaccines (2 - Td or Tdap) 11/29/2026 11/29/2016 Cholesterol Screening (Lipid Panel) 09/17/2027 09/16/2022, 09/16/2022, 05/24/2021 Cervical Cancer Screening: HPV 06/26/2028 06/27/2023 Hepatitis C Screening Completed 05/24/2021 Pneumococcal Vaccine: Pediatrics (0 to 5 Years) and At-Risk Patients (6 to 49 Years) Completed 11/12/2022, 02/20/2021 MMR Vaccines Aged Out 05/21/2023, 04/23/2023 No lo nger eligible based on patient's age to complete this topic Varicella Vaccines Aged Out 05/21/2023 No longer eligible based on patient's age to complete this topic HIB Vaccines Aged Out No longer eligi ble based on patient's age to complete this topic HPV Vaccines Aged Out No longer eligi ble based on patient's age to complete this topic Hepatitis A Vaccines Aged Out No long er eligible based on patient's age to complete this topic IPV Vaccines Aged Out No longer eligi ble based on patient's age to complete this topic Meningococcal ACWY Vaccine Aged Out N o longer eligible based on patient's age to complete this topic Meningococcal B Vaccine Aged Out No l onger eligible based on patient's age to complete this topic RSV Immunization Patients Under 20 months Aged Out No longer eligible based on patient's age to complete this topic Procedures Procedure Name Priority Date/Time Associated Diagnosis Comments MG MAMMO DIGITAL SCREENING W KUSH BILAT Routine 03/19/2024 10:56 AM EST Encounter for screening mammogram for breast cancer HM HPV Routine 06/27/2023 from Last 3 Months or Most Recently Relevant to Health Maintenance Results * MG Mammo Digital Screening w Kush bilat (03/19/2024 10:56 AM EST) Anatomical Region Laterality Modality Breast Bilateral Mammography 03/19/2024 12:3 7 PM EST Impressions 03/19/2024 12:43 PM EST No mammographic evidence of malignancy. No suspicious interval change. A negative mammogram in the presence of a clinically suspicious palpable abnormality does not preclude the possibility of malignancy or alter the indications for biopsy. ASSESSMENT: BI-RADS 1: NEGATIVE RECOMMENDATION(S): 1: Routine screening mammogram BILATERAL in 1 year. -------- FINAL REPORT -------- Dictated By: Shamar Roblero Dictated Date: 03/19/2024 12:37 ET Assigned Physician: Shamar Roblero Reviewed and Electronically Signed By: Shamar Roblero Signed Date: 03/19/2024 12:43 ET Workstation ID: [id number] Transcribed By: Self Edit Transcribed Date: 03/19/2024 12:37 ET Narrative 03/19/2024 12:43 PM EST EXAM: SCREENING MAMMOGRAPHY, BILATERAL HISTORY: SCREENING. Family history of breast cancer, aunt age 38 COMPARISON: 03/17/2023, 03/14/2022, 03/12/2021 TECHNIQUE: Synthesized CC and MLO projections of each breast. Tomosynthesis of each breast in the CC and MLO projections. ADDITIONAL IMAGING: None Computer-aided detection was employed with the Soko AI 3-D. TISSUE DENSITY: The breasts are heterogeneously dense, which may obscure small masses. (BI-RADS category C) FINDINGS: RIGHT BREAST: No suspicious mass. No suspicious calcification. No distortion. No additional suspicious right breast findings LEFT BREAST: No suspicious mass. No suspicious calcification. No distortion. No additional suspicious left breast findings Procedure Note Shamar Roblero MD - 03/19/2024 EXAM: SCREENING MAMMOGRAPHY, BILATERAL HISTORY: SCREENING. Family history of breast cancer, aunt age 38 COMPARISON: 03/17/2023, 03/14/2022, 03/12/2021 TECHNIQUE: Synthesized CC and MLO projections of each breast.Tomosynthesis of each breast in the CC and MLO projections. ADDITIONAL IMAGING: None Computer-aided detection was employed with the Soko AI 3-D. TISSUE DENSITY: The breasts are heterogeneously dense, which may obscuresmall masses. (BI-RADS category C) FINDINGS: RIGHT BREAST: No suspicious mass. No suspicious calcification. No distortion. Noadditional suspicious right breast findings LEFT BREAST: No suspicious mass. No suspicious calcification. No distortion. Noadditional suspicious left breast findings IMPRESSION: No mammographic evidence of malignancy. No suspicious interval change. A negative mammogram in the presence of a clinically suspicious palpableabnormality does not preclude the possibility of malignancy or alter theindications for biopsy. ASSESSMENT: BI-RADS 1: NEGATIVE RECOMMENDATION(S): 1: Routine screening mammogram BILATERAL in 1 year. -------- FINAL REPORT -------- Dictated By: Shamar Roblero Dictated Date: 03/19/2024 12:37 ET Assigned Physician: Shamar Roblero Reviewed and Electronically Signed By: Shamar Roblero Signed Date: 03/19/2024 12:43 ET Workstation ID: [id number] Transcribed By: Self Edit Transcribed Date: 03/19/2024 12:37 ET us Self Referral Sppl IMG BI PROCEDURES Final Resul t * Cervical Cancer Screening: HPV (06/27/2023) Cervical Cancer Screening: HPV Negative, Abstracted Historical Provider HEALTH MAINTENANCE Final Result from Last 3 Months or Most Recently Relevant to Health Maintenance Insurance MEDICAID - [place] Advance Directives Documents on File Type Date Recorded Patient Post Office Clerk Expl anation Health Care Decision (hx) 01/16/2020 AD FLAHERTY DIRECTIVE Health Care Decision (hx) 01/16/2020 AD FLAHERTY DIRECTIVE Health Care Decision (hx) 01/16/2020 AD FLAHERTY DIRECTIVE Health Care Decision (hx) 01/16/2020 AD FLAHERTY DIRECTIVE Health Care Decision (hx) 01/16/2020 AD FLAHERTY DIRECTIVE Health Care Decision (hx) 01/16/2020 AD FLAHERTY DIRECTIVE Health Care Decision (hx) 01/16/2020 AD FLAHERTY DIRECTIVE Health Care Decision (hx) 01/16/2020 AD FLAHERTY DIRECTIVE Health Care Decision (hx) 01/16/2020 AD FLAHERTY DIRECTIVE Health Care Decision (hx) 01/16/2020 AD FLAHERTY DIRECTIVE Health Care Decision (hx) 01/16/2020 AD FLAHERTY DIRECTIVE Health Care Decision (hx) 01/14/2020 AD FLAHERTY DIRECTIVE Health Care Decision (hx) 01/14/2020 AD FLAHERTY DIRECTIVE Health Care Decision (hx) 01/14/2020 AD FLAHERTY DIRECTIVE Health Care Decision (hx) 01/14/2020 AD FLAHERTY DIRECTIVE Health Care Decision (hx) 01/14/2020 AD FLAHERTY DIRECTIVE Health Care Decision (hx) 01/14/2020 AD FLAHERTY DIRECTIVE Health Care Decision (hx) 01/14/2020 AD FLAHERTY DIRECTIVE Health Care Decision (hx) 01/14/2020 AD FLAHERTY DIRECTIVE Health Care Decision (hx) 01/14/2020 AD FLAHERTY DIRECTIVE Health Care Decision (hx) 01/14/2020 AD FLAHERTY DIRECTIVE Health Care Decision (hx) 01/14/2020 AD FLAHERTY DIRECTIVE Health Care Decision (hx) 01/14/2020 AD FLAHERTY DIRECTIVE Care Teams Personnel Scheduler Relationship Specialty Start Date End Date Enoc Echeverria PA [address] [place] [address] PCP - General 06/07/22
--- OUTSIDE RECORDS SUMMARY | 2024-10-12 11:29 | XMS_ITS | Clinical Summary ---
Author Organization [employer] [facility] [employer] Address [address] [facility] [address] [place] [address] Care Team Providers Care Trim Setter Name Role Phone Unavailable Primary Care Provider Unavailabl e Encounters Date Type Department Care Team Description 09/07/2024 [address] Score [facility] ([facility]) Department [address] [facility] [address] [place] [address] Provider, Population Health Generic from Last 3 Months Social History Tobacco Use Types Packs/Day Years Used Date Smoking Tobacco: Never Assessed Comments Unknown Sex and Gender Information Value Date Recorded Sex Assigned at Not on file Legal Sex Female 9:13 PM EDT Gender Identity Not on file Sexual Orientation Not on file Plan of Treatment Health Maintenance Due Date Last Done Comments Depression Screening 1984 Lipid Panel 1984 SDOH Screening 1984 Disability Screening 1984 Alcohol/Substance Use Screening 1996 Tobacco Screening 1996 Family Planning (PISQ) 07/15/1999 HPV Vaccines (1 - 3-dose series) 07/15/1999 Hepatitis C Screening 2002 Pap Smear 2005 Cervical Cancer Screening 2014 HPV/Cotest 2014 Hepatitis B Vaccines (2 of 2 - CpG 2-dose series) 12/10/2022 11/12/2022 COVID-19 Vaccine (3 - 2023-2 5 season) 2023 06/28/2020, 06/07/2020 Mammogram 2024 Influenza Vaccine (#1) 2024 , 11/12/2022, 02/20/2021 DTaP/Tdap/Td Vaccines (2 - T d or Tdap) 11/29/2026 11/29/2016 Zoster Vaccines (1 of 2) 2034 RSV Patients and Patients Aged 60 years or older (1 - 1-dose 75+ series) 07/15/2059 Pneumococcal Vaccine: Pediatrics (0 to 5 Years) and At-Risk Patients (6 to 49) Years Completed 11/12/2022, 02/20/2021 HIV Screening Completed 03/06/2023, 03/06/2023, 05/24/2021 HIB Vaccines Aged Out No longer eligi [...] patient's age to complete this topic Meningococcal Vaccine Aged Out No lynn lili eligible based on patient's age to complete this topic RSV under 20 months Aged Out No longe r eligible based on patient's age to complete this topic Rotavirus Vaccines Aged Out No longer eligible based on patient's age to complete this topic
--- OUTSIDE RECORDS SUMMARY | 2024-10-12 11:29 | XMS_ITS | Clinical Summary ---
Author Organization [facility] Address [address] [place] [address] Care Team Providers Care Patient Assistant Name Role Phone Manuela Law Primary Care Provider [phone] Allergies No known active allergies Medications Medication Sig Dispensed Refills Start Date End Date Status albuterol (PROVENTIL HFA;VENTOLIN HFA) 108 (90 Base) MCG/ACT inhaler 2 puffs 2 minutes apart every 4 hours when necessary cough. Pharmacist: please supply with AeroChamber spacer device and instruct on use with MDI. 1 Inhaler 0 03/16/2018 Active naproxen (NAPROSYN) 500 MG tablet 1 p.o. twice daily as needed pain. Take with food. 14 tablet 0 06/17/2018 Active ferrous gluconate (FERGON) 324 MG tablet Take 324 mg by mouth 2 (two) times a day. 0 Active cimetidine (TAGAMET) 400 MG tablet Take 400 mg by mouth 2 (two) times a day. 0 Active docusate sodium (COLACE) 100 MG capsule Take 100 mg by mouth 2 (two) times a day. 0 Active Ascorbic Acid ER 1000 MG TBCR Take 1,000 mg by mouth 2 (two) times a day. 0 Active Cholecalciferol (D3-50) 1.25 MG (55382 UT) capsule Take 50,000 Units by mouth daily. 0 Active topiramate (TOPAMAX) 25 MG tablet Take 25 mg by mouth 2 (two) times a day. 0 Active naratriptan (AMERGE) 1 MG TABS Take 1 mg by mouth once as needed. Take one (1) tablet at onset of headache; if returns or does not resolve, may repeat after 4 hours; do not exceed five (5) mg in 24 hours. 0 Active montelukast (SINGULAIR) 10 MG tablet Take 10 mg by mouth every night at bedtime. 0 Active omeprazole (PriLOSEC) 20 MG capsule Take 20 mg by mouth 2 (two) times a day. 0 Active Active Problems Problem Noted Date Diagnosed Date Iron deficiency anemia 02/19/2019 History of gestational diabetes 12/29/2016 Iron deficiency 11/15/2016 H/O section 09/05/2016 Overview: Had C/S 15 years ago d/t NRFHT H/O myomectomy 09/05/2016 Overview: In 2014. Will need repeat C/S. Pt also with hx of mini lap for ABDI and appendectomy S/P laparoscopic sleeve gastrectomy (Nahmias, ) 08/12/2016 Cervical high risk human pap illomavirus (HPV) DNA test positive 07/26/2016 Overview: Due for Pap at next PP visit 2014; neg cytology, HPV HR not done 02/2015: LSIL pap with HPV effect, HPV HR not done, no colposcopy 06/2016: Neg cytology, HPV HR + Not immune to rubella 07/19/2016 Overview: Offer at next visit. Not given in 4-1 Mild intermittent asthma without complication Migraine 06/12/2015 GERD (gastroesophageal reflux disease) 6 Alopecia 11/14/2014 Obstructive apnea 11/14/2014 Resolved Problems Problem Noted Date Diagnosed Date Resolved Date Pre-operative evaluation for tubal ligation 06/19/2017 07/09/2017 HPV (human papilloma virus) infection: 02/04/2017 02/04/2017 Overview: Due for Pap at next PP visit 2014; neg cytology, HPV not done 02/2015: LSIL pap, no colposcopy 06/2016: Neg cytology, HPV+ 34 weeks gestation of 01/07/2017 01/08/2017 32 weeks gestation of 12/26/2016 01/08/2017 30 weeks gestation of 12/13/2016 01/08/2017 Iron deficiency anemia of 12/13/2016 02/04/2017 07/19/2016 02/04/2017 Overview: labs A pos, hct 35.9, HIV neg, HCV neg, RPR NR, Rubella equivocal, TSH 1.86, FT4 0.9, HepBSAg neg, need HepBSAb USN 06/17/16: SIUP, gestational sac 4w4d, no yolk sac or pole seen, small fluid collection in right adnexa, repeat USN in 2 weeks 07/01/16: 7w2d by dates, +FCA, repeat USN in 4 weeks 08/06/16: 12w3d, variable presentation, normal growth, FHR 167bpm, anterior placenta, NT <95% 09/25/16: SIUP 19w4d breech, growth normal EFW 330gm, FHR 148, ant placenta, No previa 10/16: 22w4d vertex, EFW 569 68th%ile, normal growth, fhr 136 ant placenta no previa Counsyl 07/17: Negative Sequential Screen negative: DSR 1:2900; Tri 18 1:10,000; ONTD 1:2,000 Cf dna wnl Uncertain dates, antepartum 07/10/2016 07/19/2016 Less than 8 weeks gestation of 07/10/2016 07/19/2016 Less than 8 weeks gestation of 06/18/2016 07/19/2016 RUQ pain 06/12/2015 08/19/2016 Biliary colic 11/14/2014 08/19/2016 Post-operative state 11/14/2014 017 Currently 11/14/2014 7 Avitaminosis D 11/14/2014 08/19/2016 Fibroids, intramural 08/22/2014 017 Pelvic pain in female 08/22/20142016 Immunizations Name Administration Dates Next Due Tdap 11/29/2016 Family History Medical History Relation Name Comments No Sig Med Hx Brother No Sig Med Hx Father Cancer Maternal Aunt Diabetes Maternal Aunt Hypertension Maternal Aunt No Sig Med Hx Maternal Grandfather Uterine cancer Maternal Grandmother Diabetes Mother Hypertension Mother No Sig Med Hx Paternal Grandfather No Sig Med Hx Paternal Grandmother No Sig Med Hx Sister Breast cancer Neg Hx Colon cancer Neg Hx Eclampsia Neg Hx Miscarriages / Stillbirths Neg Hx Ovarian cancer Neg Hx labor Neg Hx Stroke Neg Hx Relation Name Status Comments Brother Father Maternal Aunt Maternal Grandfather Maternal Grandmother Mother Paternal Grandfather Paternal Grandmother Sister Social History Tobacco Use Types Packs/Day Years Used Date Smoking Tobacco: Former Cigarettes Q uit: 2013 Smokeless Tobacco: Never Alcohol Use Standard Drinks/Week Comments No 4 (1 standard drink = 0.6 oz pur e alcohol) Sex and Gender Information Value Date Recorded Sex Assigned at Female 03/16/2018 5:51 PM EST Gender Identity Not on file Sexual Orientation Not on file Last Filed Vital Signs Vital Sign Reading Time Taken Comments Blood Pressure 122/66 02/19/2019 11:09 AM EST Pulse 76 02/19/2019 11:09 AM EST Temperature 36.6 C (97.8 F) 02/19/2019 11:09 AM EST Respiratory Rate 18 06/17/2018 9:58 AM EDT Oxygen Saturation 99% 06/17/2018 9:58 AM EDT Inhaled Oxygen Concentration - - Weight 110 kg (242 lb 6.4 oz) 02/19/2019 11:09 A M EST Height 160 cm (5' 3 ) 02/19/2019 11:09 AM EST Body Mass Index 42.94 02/19/2019 11:09 AM EST Plan of Treatment Health Maintenance Due Date Last Done Comments Hepatitis B Vaccines (1 of 3 - 3-dose series) 1984 COVID-19 Vaccine (#1) 01/14/1985 Pneumococcal Vaccine (1 of 2 - PCV) 1990 Depression Screening 1996 Preventative Health Evaluation 04/04/2018 04/04/2017, 02/24/2015 Cervical Cancer Screening (Pap Smear) 04/04/2020 04/04/2017, 07/17/2016, 02/24/2015, Additional history exists Influenza Vaccine (#1) 2024 DTap / Tdap / Td (2 - Td or Tdap) 11/29/2026 11/29/2016 Hepatitis C Screening Completed 07/17/2016, 016 RSV Ped < 20 months Aged Out No longe r eligible based on patient's age to complete this topic Goals Goal Patient Goal Type Associated Problems Recent Progress Patient-Stated? Author Health Eating Goals: [facility] Astrid Arango RD Note: 1. Pt will focus on protein intake (goal 60-80 g PRO/day) by consuming at least 3 oz (21 g) PRO per meal 3x/day and 1 oz protein at HS snack; pt also drinks milk throughout the day to managed heartburn, ~12 oz milk/day. 2. Pt will focus on consuming at least one fruit per day and lettuce and tomatoes at least once per day to increase fiber intake. 3. Pt will avoid fast food. Have 3 meals a day Diet No Astrid Byrens RD Note: 1. PT will stop grazing/snacking and instead eat 3 planned meals/day. ACHIEVED 2. PT will stop drinking fruit juice. ACHIEVED 3. PT will consume protein with all meals and snacks (prn). NOT ACHIEVED Exercise 150 minutes per week (moderate activity) Exercise Astrid Arango RD Note: Pt agrees to aim for 30 min walking/day cumulatively. Advance Directives For more information, please contact: [phone] Latest Code Status on File Code Status Date Activated Date Inactivated Comments Full Code 01/27/2017 11:08 AM 01/30/2017 6:37 PM Th is code status was ascertained in the following way: discussion with patient . Code Status History Code Status Date Activated Date Inactivated Comments Full Code 06/12/2015 5:06 PM 06/13/2015 10:50 PM This code status was ascertained in the following way: discussion with patient. Full Code 10/06/2014 12:26 AM 10/08/2014 12:24 AM Thi s code status was ascertained in the following way: discussion with patient. Full Code 09/20/2014 3:10 PM 09/23/2014 7:27 PM This co de status was ascertained in the following way: discussion with patient. Full Code 09/20/2014 12:21 PM 09/20/2014 3:10 PM This c ode status was ascertained in the following way: discussion with patient. Care Teams Patient Assistant Relationship Specialty Start Date End Date Manuela Law DO [address] [place] [phone] PCP - General Family Medicine 02/08/19
--- OUTSIDE RECORDS SUMMARY | 2024-10-12 11:29 | XMS_ITS | Clinical Summary ---
Author Organization [facility] Address [address] [place] [phone] Phone Care Team Providers Care Salesperson Corsets Name Role Phone Ani Manuela Bianca Primary Care Provider Allergies No known active allergies Medications cholecalciferol (VITAMIN D3) 50,000 unit capsule Take 50,000 Units by mouth. Active Active Problems No known active problems Social History Tobacco Use Types Packs/Day Years Used Date Smoking Tobacco: Never Smokeless Tobacco: Never Alcohol Use Standard Drinks/Week Comments Not Currently 0 (1 standard drink = 0.6 oz pur e alcohol) Education Answer Date Recorded Are you interested in more education? Not on mary e 06/14/2022 Are you concerned about learning? Not on file 06/14/2022 No 06/14/2022 No 06/14/2022 Digital Access Answer Date Recorded No 07/16/2022 No 07/16/2022 Reliable internet access at home? Not on file 07/16/2022 Device with a working camera? Not on file Comments Unknown Sex and Gender Information Value Date Recorded Sex Assigned at Female 05/04/2020 11:31 AM EDT Legal Sex Female 9:24 AM EDT Gender Identity Female 05/04/2020 11:31 AM EDT Sexual Orientation Straight 05/04/2020 11 :31 AM EDT Last Filed Vital Signs Vital Sign Reading Time Taken Comments Blood Pressure 125/79 05/04/2020 1:53 PM EDT Pulse 65 05/04/2020 1:53 PM EDT Temperature 36.8 C (98.2 F) 05/04/2020 1:53 PM EDT Respiratory Rate 14 05/04/2020 1:53 PM EDT Oxygen Saturation 98% 05/04/2020 1:53 PM EDT Inhaled Oxygen Concentration - - Weight 111.6 kg (246 lb) 05/04/2020 11:33 AM EDT Height 160 cm (5' 3 ) 05/04/2020 11:33 AM EDT Body Mass Index 43.58 05/04/2020 11:33 AM EDT Plan of Treatment Health Maintenance Due Date Last Done Comments DEPRESSION SCREENING 1996 HEPATITIS C SCREENING 2002 HIV ONE-TIME SCREENING (18-6 5 YEARS) 2002 PAP SMEAR 2005 SMOKING STATUS SCREENING (On ce After 26 Yrs) 2010 COVID-19 VACCINE (2023-2 5 season) 2023 02/23/2021 MAMMOGRAM 2024 INFLUENZA VACCINE (#1) 2024 Adult Td,Tdap Booster 11/29/2026 11/29/2016 HEPATITIS A VACCINES Aged Out No long er eligible based on patient's age to complete this topic HIB VACCINES Aged Out No longer eligi ble based on patient's age to complete this topic MENINGOCOCCAL VACCINES (ACWY) Aged Out No longer eligible based on patient's age to complete this topic MENINGOCOCCAL VACCINES (B) Aged Out N o longer eligible based on patient's age to complete this topic PNEUMOCOCCAL VACCINES (0-49 years) Aged Out No longer eligible based on patient's age to complete this topic Medical Devices Not on file Insurance [facility] [address] [place], [place] [id number] O O [facility] [place] [address] [facility] [place] [address] [address] [facility] Care Teams Salesperson Corsets Relationship Specialty Start Date End Date Manuela Law DO [address] [place] [id number] [email or web address] PCP - General Family Medicine 05/04/20 Additional Source Comments The information contained in this document represents components of the legal health record. It is not the complete legal health record.[facility]
== END 2024-10-12 11:51 | disposition home or self-care (01) ==
LOC: HO.HBS 10:38
PROVIDERS: Visit Provider Physician Assistant Surgical
DX: E66.9 Obesity, unspecified (principal); Z68.31 Body mass index [BMI] 31.0-31.9, adult; K91.2 Postsurgical malabsorption, not elsewhere classified; Z90.3 Acquired absence of stomach [part of]; Z98.84 Bariatric surgery status
CPT/HCPCS: 99214

== ENCOUNTER → 2024-10-12 10:37 | Outpatient (BNVA) | payer MEDICAID, SELFPAY | PROVIDERS: Visit Provider Physician Assistant Surgical | DX: Z98.84 Bariatric surgery status (principal); E66.9 Obesity, unspecified; K91.2 Postsurgical malabsorption, not elsewhere classified | CPT/HCPCS: 99212 ==

== ENCOUNTER 2024-11-03 08:45 | Outpatient (REF) | payer MEDICAID, SELFPAY ==
--- NOTE | ~2024-11-03 | US_ITS ---
EXAMINATION: US ABDOMEN LIMITED CLINICAL INFORMATION: Bariatric surgery status. Status post cholecystectomy. Post prandial pain, right upper quadrant.. COMPARISON: Correlated to CT dated May 05, 2023 TECHNIQUE: Real-time ultrasound right upper quadrant abdomen using grayscale technique. FINDINGS: PANCREAS: No peripancreatic fluid collections. LIVER: Liver measures 16 cm. No nodular contour. Normal echotexture. No gross solid or cystic lesion. Main portal vein is patent with normal hepatopedal flow direction. No intrahepatic biliary ductal dilatation. GALLBLADDER: Cholecystectomy. COMMON BILE DUCT: 5 mm. RIGHT KIDNEY: 12 cm. Normal echotexture. Normal renal cortical thickness. No hydronephrosis. No solid or cystic lesion.. FREE FLUID: None. US/US abdomen limited IMPRESSION: No intrahepatic or extrahepatic biliary ductal dilatation. No gross choledocholithiasis. No hydronephrosis, right kidney. No ascites. Electronically signed by: Conor Marquez MD 11/03/2024 09:52 AM EDT
--- OUTSIDE RECORDS SUMMARY | 2024-11-03 10:11 | XMS_ITS | Clinical Summary ---
Author Organization [facility] Address [address] [place] [address] Phone Care Team Providers Care Homebound Teacher Name Role Phone Enoc Echeverria Primary Care Provider [phone] Allergies Active Allergy Reactions Criticality Noted Date [...] History Surgery Date Site/Laterality Comments APPENDECTOMY PROCEDURE: DC APPENDEC INDICATED PURPOSE OTH MAJOR PX NOT SPX OTHER SURGICAL HISTORY 2016 PROCEDURE: DC LAPS GSTR RSTCV PX W/BYP&SM INT RCNSTJ MYOMECTOMY PROCEDURE: DC LAPS MYOMECTOMY EXC 1-4 MYOMAS 250 GM/< CARPAL TUNNEL RELEASE PROCEDURE: DC NEUROPLASTY &/TRANSPOS MEDIAN NRV CARPAL TUNNE SECTION [...] 03/19/2024 10:38 AM EST Plan of Treatment Upcoming Encounters Date Type Department Care Team (Late st Contact Info) Description 02/21/2025 10:00 AM EST Office Visit Obstetrics & Gynecology - [address] [id number] Shanti Stark CNM [address] [place] [address] Health Maintenance Due Date Last Done Comments HIV Screening 01/25/2022 Social Influencers of Health Screening 01/25/2022 Hepatitis B Vaccines (2 of 2 - CpG 2-dose series) 12/10/2022 11/12/2022 Depression Screening 02/18/2024 COVID-19 Vaccine (4 - season) 2024 02/23/2021, 06/28/2020, 06/07/2020 Influenza Vaccine (#1) 2024 , 11/12/2022, 02/20/2021 Breast Cancer Screening 03/19/2026 03/19/19, 03/17/2023, 03/14/2022, Additional history exists DTaP,Tdap,and Td [...] Encounter for screening mammogram for breast cancer HPV Routine 06/27/2023 from Last 3 Months [...] Signed Date: 03/19/2024 12:43 ET Workstation ID: [id number] Transcribed By: Self Edit Transcribed Date: 03/19/2024 12:37 ET Narrative 03/19/2024 12:43 PM EST EXAM: SCREENING MAMMOGRAPHY, BILATERAL HISTORY: SCREENING. Family history of breast cancer, aunt age 38 COMPARISON: 03/17/2023, 03/14/2022, 03/12/2021 TECHNIQUE: Synthesized CC and MLO projections of each breast. Tomosynthesis of each breast in the CC and MLO projections. ADDITIONAL IMAGING: None Computer-aided detection was employed with the Mob[employer] AI 3-D. TISSUE DENSITY: The breasts are [...] None Computer-aided detection was employed with the iCAD profound AI 3-D. TISSUE DENSITY: The breasts are [...] Signed Date: 03/19/2024 12:43 ET Workstation ID: [id number] Transcribed By: Self Edit Transcribed Date: 03/19/2024 12:37 ET us Self Referral Sppl IMG BI PROCEDURES Final Resul t * Cervical Cancer Screening: HPV (06/27/2023) Pathologist [facility] Cervical Cancer Screening: HPV Negative, Abstracted Historical Provider HEALTH MAINTENANCE Final Result from Last 3 Months or Most Recently Relevant to Health Maintenance Insurance MEDICAID - [place] Advance Directives Documents on File Type Date Recorded Patient Permit Coordinator Expl anation Health Care Decision (hx) 01/16/2020 [...] (hx) 01/14/2020 AD FLAHERTY DIRECTIVE Care Teams Homebound Teacher Relationship Specialty Start Date End Date Enoc Echeverria PA [address] [place] [phone] PCP - General 06/07/22
--- OUTSIDE RECORDS SUMMARY | 2024-11-03 10:11 | XMS_ITS | Clinical Summary ---
Author Organization [employer] Address [address] [facility] [address] [place] [address] Care Team Providers Care Hvac R Tech Name Role Phone Unavailable Primary Care Provider Unavailabl e Encounters Date Type Department Care Team Description 09/07/2024 Population Health Risk Score [facility] (C3) Department [address] [facility] [address] [place] [address] Provider, Population Health Generic from [...] 2 - CpG 2-dose series) 12/10/2022 11/12/2022 Mammogram 2024 COVID-19 Vaccine (3 - 2024-2 6 season) 2024 06/28/2020, 06/07/2020 Influenza Vaccine (#1) 2024 , [...]
--- OUTSIDE RECORDS SUMMARY | 2024-11-03 10:11 | XMS_ITS | Clinical Summary ---
Author Organization [facility] Address [address] [place] [address] Phone Care Team Providers Care Submarine Advisory Team Watch Officer Name Role Phone Ani Manuela Bianca Primary [...] SCREENING (On ce After 26 Yrs) 2010 MAMMOGRAM 2024 INFLUENZA VACCINE (#1) 2024 COVID-19 VACCINE (2 - 2024-2 6 season) 2024 02/23/2021 Adult Td,Tdap Booster 11/29/2026 11/29/2016 HEPATITIS A [...] topic Medical Devices Not on file Insurance [facility] [address] [place] [address] O O [facility] [place] [address] [address] [facility] [place] [address] [address] [facility] Care Teams Submarine Advisory Team Watch Officer Relationship Specialty Start Date End Date Manuela Law DO [address] [place] [id number] [email or web address] PCP - General Family Medicine 05/04/20 Additional Source Comments The information contained in this document represents components of the legal health record. It is not the complete legal health record.[facility]
--- OUTSIDE RECORDS SUMMARY | 2024-11-03 10:11 | XMS_ITS | Clinical Summary ---
Author Organization [facility] Address [address] [place] [address] Care Team Providers Care Tankage Grinder Name Role Phone Manuela Law Primary Care Provider [phone] Allergies No known active allergies Medications Medication [...] day. 0 Active Cholecalciferol (D3-50) 1.25 MG (84661 UT) capsule Take 50,000 Units by mouth [...] 3 meals a day Diet No Astrid Byrnes RD Note: 1. PT will stop grazing/snacking and instead eat 3 planned meals/day. ACHIEVED 2. PT will stop drinking fruit juice. ACHIEVED 3. PT will consume protein with all meals and snacks (prn). NOT ACHIEVED Exercise 150 minutes per week (moderate activity) Exercise Astrid Arango RD Note: Pt agrees to aim for 30 min walking/day cumulatively. Advance Directives For more information, please contact: [phone] Latest Code Status on File Code Status [...] following way: discussion with patient. Care Teams Tankage Grinder Relationship Specialty Start Date End Date Manuela Law DO [address] [place] [phone] PCP - General Family Medicine 02/08/19
== END 2024-11-03 08:46 | disposition home or self-care (01) ==
LOC: HO.US 08:45
PROVIDERS: PCP Physician Assistant; Visit Provider Physician Assistant Surgical
DX: R10.11 Right upper quadrant pain (principal); Z98.84 Bariatric surgery status
CPT/HCPCS: 76705

== ENCOUNTER → 2024-11-03 08:47 | Outpatient (BNV) | payer MEDICAID, SELFPAY | PROVIDERS: PCP Physician Assistant; Visit Provider Radiology Diagnostic Radiology | DX: Z98.84 Bariatric surgery status (principal) | CPT/HCPCS: 76705 ==

== ENCOUNTER 2025-01-03 10:55 | Outpatient (AMB) | payer MEDICAID, SELFPAY ==
--- NOTE | 2025-01-03 10:53 | MHC.OFFVISWM ---
VS Expanded 01/03/25 11:00 Height 5 ft 3 in Weight 169 lb BMI 29.9 Intake Visit Reasons: TV PO LSG 10/10/20 Allergies ibuprofen Allergy (Mild, Verified 10/12/24 10:54) Stomach Upset Medication List - Last Reconciled 01/03/25 by LAQUITA Austin cholecalciferol (vitamin D3) 50 mcg PO DAILY docusate sodium 100 mg PO BID gabapentin 400 mg PO BID inulin 2 grams PO DAILY pantoprazole 40 mg PO DAILY phentermine 30 mg PO DAILY HPI Comments Details: This is a 39 yo F who is s/p RYGB 10/10/2020. Presents for 4y 3mo post op visit. Weight gain of 8.2lb since last OV in Feb 2023. At last visit pt reported some abdominal pain when eating; pain starts on right side and radiates around to back. Sometimes when she has to use the bathroom to have a bowel movement she notices the pain as well. Has a normal BM every day for the most part. No nausea when this occurs. No tobacco, previous NSAIDs but none for a long time. She notices that she started to gain weight after starting a few medications for fibromyalgia, particularly gabapentin. I ordered RUQ US with results below. I had ordered phentermine. She did not go to the appointment with the dietitian in endocrinology due to her son being sick, and did not reschedule- reports she forgot. She reports no improvement in abdominal pain with PPI. However she notices that this pain near her ribs gets worse when she experiences constipation. Present meal plan includes: continues to occasionally have episodes of low blood sugar- sometimes as low as 40-50, maybe slightly better controlled eats 5x/day to help this; uses protein shakes like Premier powder which she mixes with almond milk; each shake 1/2 scoop in 8oz UAM, wants to add Vital protein collagen to this Pure protein bar half in afternoon, half at night will sometimes have a banana, watermelon, mandarin orange- will eat this by itself 5pm will have a meal with chicken or red meat, salad, tomato, cheese, sometimes crackers with tuna, wheat bread but if eating crackers or bread blood sugar will drop drinks water with crystal light [facility] Medical History Gastric bypass status for obesity BMI 37.0-37.9, adult COVID-19 vaccine series completed Preprocedural examination BMI 39.0-39.9,adult Obesity Iron deficiency Vitamin D deficiency Vitamin B12 deficiency Sleep apnea GERD (gastroesophageal reflux disease) Asthma Morbid (severe) obesity due to excess calories Surgical History H/O: History of esophagogastroduodenoscopy (EGD) Hx of dilation and curettage Hx of appendectomy History of sleeve gastrectomy Hx of tubal ligation Hx of cholecystectomy Family History Mother Depressed Anxiety Asthma Father No problems noted. Brother No problems noted. Brother Asthma Brother No problems noted. Son No problems noted. Daughter Asthma Anxiety Social History Are you a primary auto care center manager to a significant other at home: Yes (Child 3 yrs old) Do you presently have visiting nurse or other home services: No Alcohol intake: never Patient Tobacco Use Status: Former Tobacco user service: No Current occupational status: unemployed Telehealth Telehealth Telehealth Platform: Telephone Location of provider rendering services: practice address Location of patient: address on file Patient Identification confirmed using: Name, : Yes Telehealth method: voice only Patient verbally consented to treatment: Yes Patient verbally consented to billing insurance company: Yes Patient informed of any privacy concerns related to visit: Yes Minutes spent on Phone/Video with Pt.: 16 Results Reviewed Results Reviewed: US/US abdomen limited IMPRESSION: No intrahepatic or extrahepatic biliary ductal dilatation. No gross choledocholithiasis. No hydronephrosis, right kidney. No ascites. 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 Avoid bread, rice, simple carbs. Can use [place] yogurt or CC +/- berries instead of protein bar if she would like. Pt will contact endocrinology dietitian office for new appt. Bowel reg for complaints of ? constipation. If no improvement can consider EGD to work up abdominal pain. Refill of phentermine; pt reminded to send me blood pressure readings daily and gave parameters for holding. RTC TV in 3-4 months. Medications: New docusate sodium 100 mg PO BID 90 caps 3RF inulin 2 grams PO DAILY 90 tabs 3RF Refilled phentermine must administer 2 hours after breakfast 30 mg PO DAILY 30 caps 0RF
[2025-01-03 11:00] VITALS: BMI 29.9
== END 2025-01-03 11:19 | disposition home or self-care (01) ==
LOC: HO.HBS 10:55
PROVIDERS: PCP Physician Assistant; Visit Provider Physician Assistant Surgical
DX: K91.2 Postsurgical malabsorption, not elsewhere classified (principal); Z98.84 Bariatric surgery status; E66.3 Overweight
CPT/HCPCS: 99214

== ENCOUNTER 2025-01-07 09:45 | Outpatient (REF) | payer MEDICAID, SELFPAY ==
[2025-01-07 10:26] LABS: MANUAL DIFF FLAG NO
--- OUTSIDE RECORDS SUMMARY | 2025-01-07 10:30 | XMS_ITS | Clinical Summary ---
Author Organization [facility] Address [address] [place] [id number] Phone Care Team Providers Care Gear Tooth Lapping Machine Operator Name Role Phone Ani Manuela Bianca Primary [...] topic Medical Devices Not on file Insurance [facility] [address] [place] [id number] [place] [facility] [place] [address] [address] [facility] [place] [address] [address] [facility] Care Teams Gear Tooth Lapping Machine Operator Relationship Specialty Start Date End Date Manuela Law DO [address] [place] [id number] [email or web address] PCP - General Family Medicine 05/04/20 Additional Source Comments The information contained in this document represents components of the legal health record. It is not the complete legal health record.[facility]
--- OUTSIDE RECORDS SUMMARY | 2025-01-07 10:30 | XMS_ITS | Data Portability ---
Author Organization [facility] [address] Address [address] [place] [address] Assessment No assessment recorded. Plan of Treatment Reminders Order Date Submit Date Provider Last Modified By Organization Details Last Modified Time Details Appointments None record ed. Lab None record ed. Referral None record ed. Procedures None record ed. Surgeries None record ed. Imaging None record ed. Medication Orders None record ed. Patient TargetsNo targets recorded. Patient InstructionsNo instructions recorded. Reason for Referral None Reported. Medical Equipment None Reported. Medications Name Sig Start Date Stop Date Status Note LastModified by Organization Details LastModified Time amoxicillin 500 mg capsule active Not Available Not Available Not Available Pain Reliever Extra Strength (acetaminophe n) 500 mg tablet active Not Available Not Available Not Available acetaminophen 325 mg tablet TAKE 1 TABLET BY MOUTH EVERY 4 HOURS NEEDED FOR PAIN active Not Available Not Available No t Available azithromycin 250 mg tablet active Not Available Not Availabl e Not Available ibuprofen 800 mg tablet TAKE 1 TABLET BY MOUTH THREE TIMES A DAY NEEDED FOR PAIN active Not Available Not Available No t Available tizanidine 4 mg tablet TAKE 1 TABLET BY MOUTH THREE TIMES A DAY NEEDED active Not Available Not Available No t Available benzonatate 200 mg capsule active Not Available Not Available Not Available sucralfate 100 mg/mL oral suspension TAKE 10ML BY MOUTH 4 TIMES A DAY BEFORE MEAL/BED active Not Available Not Available No t Available FreeStyle Lancets 28 gauge active Not Available Not Available Not Available cyanocobalami n (vit B-12) 250 mcg tablet TAKE 1 TABLET BY MOUTH EVERY DAY active Not Available Not Available No t Available butalbital-ac etaminophen-c affeine 50 mg-325 mg-40 mg tablet active Not Available Not Available No t Available vitamin A 3,000 mcg (10,000 unit) capsule TAKE 2 CAPS ORALLY DAILY FOR 2 WEEKS active Not Available Not Available No t Available pantoprazole 40 mg tablet,delaye d release TAKE 1 TABLET BY MOUTH EVERY DAY active Not Available Not Available No t Available ibuprofen 400 mg tablet TAKE 1 TABLET BY MOUTH EVERY 4 HOURS NEEDED FOR PAIN active Not Available Not Available No t Available gabapentin 100 mg capsule active Not Available Not Available Not Available Vitamin B-1 100 mg tablet TAKE 1 TABLET BY MOUTH EVERY DAY active Not Available Not Available No t Available ondansetron 4 mg disintegratin g tablet active Not Available Not Available Not Available Ventolin HFA 90 mcg/actuation aerosol inhaler active Not Available Not Available Not Available oxycodone 5 mg tablet TAKE 1 TABLET BY MOUTH EVERY 4 HOURS NEEDED FOR PAIN DIRECTED (DO NOT DRIVE WHILE ON THIS MEDICATION ) active Not Available Not Available No t Available FreeStyle Lite Meter kit active Not Available Not Available Not Available FreeStyle Lite Strips active Not Available Not Available Not Available diclofenac 1 % topical gel APPLY TOPICALLY 2 (TWO) TIMES DAILY FOR UP TO TWO WEEKS PER CARPAL TUNNEL FLARE. 1 GRAM PER DOSE active Not Available Not Available No t Available Vitamin D3 50 mcg (2,000 unit) capsule TAKE 1 CAPSULE BY MOUTH EVERY DAY active Not Available Not Available No t Available Vitals None Recorded Social History None recorded. Functional Status None recorded. Mental Status None recorded. Family History Nothing Reported. Medical History No medical history recorded. Gynecological HistoryNo gynecological history recorded. Obstetrics History GPAL:G 0 P 0 0 0 0 Past Encounters Encounter ID Performer Location Encounter Start Date Encounter Closed Date Diagnosis/Indication Diagnosis SNOMED-CT Code Diagnosis ICD10 Code Diagnosis IMO Codes Diagnosis Note [id number] [address] [place] [address] 04/10/2020 13:19:00 04/10/2020 14:01:46 [id number] [address] [place] [address] 11/05/2018 18:21:36 11/05/2018 20:09:20 [id number] [address] [place] [address] 07/02/2020 17:02:29 07/02/2020 19:19:09 [id number] [address] [address] [address] [place] [address] 07/02/2020 16:09:15 07/02/2020 16:48:16 Health Concerns Section Related Observation LastModified by Organization Detai ls LastModified Time None Recorded Concern Status LastModified by Organization Details LastModified Time None Recorded Advance Directives Directive None Recorded Payers Insurance Date Sequence Insurance Name Policy Number Policy Montesinos Covered Member ID Montesinos Member ID Guarantor Name 06/30/2022 1 [facility] [employer] - HEALTH NET PLAN (MEDICAID HMO) [id number] Kayy Adhikari [id number] Kayy Adhikair OBGyn Episode No OBEpisode recorded.
--- OUTSIDE RECORDS SUMMARY | 2025-01-07 10:30 | XMS_ITS | Clinical Summary ---
Author Organization [facility] Address [address] [place] [address] Phone Care Team Providers Care Mosaic Floor Layer Name Role Phone Enoc Echeverria Primary Care Provider Allergies Active Allergy Reactions Criticality Noted Date [...] History Surgery Date Site/Laterality Comments APPENDECTOMY PROCEDURE: [place] APPENDEC INDICATED PURPOSE OTH MAJOR PX NOT SPX OTHER SURGICAL HISTORY 2016 PROCEDURE: [place] LAPS GSTR RSTCV PX W/BYP&SM INT RCNSTJ MYOMECTOMY PROCEDURE: [place] LAPS MYOMECTOMY EXC 1-4 MYOMAS 250 GM/< CARPAL TUNNEL RELEASE PROCEDURE: [place] NEUROPLASTY &/TRANSPOS MEDIAN NRV CARPAL TUNNE SECTION [...] EST Office Visit Obstetrics & Gynecology - [address] [address] Shanti Stark CNM [address] [place] [address] Health Maintenance Due Date Last Done Comments HPV Vaccines (1 - 3-dose SCDM series) 07/15/2011 HIV Screening 01/25/2022 Social Influencers of Health [...] 05/24/2021 Cervical Cancer Screening: HPV 06/26/2028 06/27/2023 RSV Immunization Adult Patients (1 - 1-dose 75+ series) 07/15/2059 Hepatitis C Screening Completed 05/24/2021 Pneumococcal Vaccine: [...] Signed Date: 03/19/2024 12:43 ET Workstation ID: [id number] Transcribed By: Self Edit Transcribed Date: 03/19/2024 12:37 ET Narrative 03/19/2024 12:43 PM EST EXAM: SCREENING MAMMOGRAPHY, BILATERAL HISTORY: SCREENING. Family history of breast cancer, aunt age 38 COMPARISON: 03/17/2023, 03/14/2022, 03/12/2021 TECHNIQUE: Synthesized CC and MLO projections of each breast. Tomosynthesis of each breast in the CC and MLO projections. ADDITIONAL IMAGING: None Computer-aided detection was employed with the iCAD Zero9 AI 3-D. TISSUE DENSITY: The breasts are [...] Signed Date: 03/19/2024 12:43 ET Workstation ID: [id number] Transcribed By: Self Edit Transcribed Date: 03/19/2024 12:37 ET us Self Referral Sppl IMG BI PROCEDURES Final Resul t * Cervical Cancer Screening: HPV (06/27/2023) Cervical Cancer Screening: HPV Negative, Abstracted Historical Provider HEALTH MAINTENANCE Final Result from Last 3 Months or Most Recently Relevant to Health Maintenance Insurance MEDICAID - [place] Advance Directives Documents on File Type Date Recorded Patient Insurance Sales Assistant Expl anation Health Care Decision (hx) 01/16/2020 AD FLAHERTY DIRECTIVE Health Care Decision (hx) 01/16/2020 AD LFAHERTY DIRECTIVE Health Care Decision (hx) 01/16/2020 AD [...] (hx) 01/14/2020 AD FLAHERTY DIRECTIVE Care Teams Mosaic Floor Layer Relationship Specialty Start Date End Date Enoc Echeverria PA [address] [place] [address] PCP - General 06/07/22
--- OUTSIDE RECORDS SUMMARY | 2025-01-07 10:30 | XMS_ITS | Clinical Summary ---
Author Organization [facility] Address [address] [place] [address] Care Team Providers Care Retail Merchandising Coordinator Name Role Phone Manuela Law Primary Care Provider [phone] Allergies No known active allergies Medications Medication [...] day. 0 Active Cholecalciferol (D3-50) 1.25 MG (20749 UT) capsule Take 50,000 Units by mouth [...] Advance Directives For more information, please contact: [phone] Latest Code Status on File Code Status [...] following way: discussion with patient. Care Teams Retail Merchandising Coordinator Relationship Specialty Start Date End Date Manuela Law DO [address] [place] [phone] PCP - General Family Medicine 02/08/19
--- OUTSIDE RECORDS SUMMARY | 2025-01-07 10:30 | XMS_ITS | Clinical Summary ---
Author Organization [employer] Address [address] [facility] [address] [place] [address] Care Team Providers Care Cook Fishing Vessel Name Role Phone Unavailable Primary Care Provider Unavailabl e Social History Tobacco Use Types Packs/Day Years [...] Completed 11/12/2022, 02/20/2021 HIV Screening Completed 03/06/2023, 05/24/2021 HIB Vaccines Aged Out No [...]
[2025-01-07 10:34] LABS: Hematocrit 40.2 % (37.0-47.0); Hemoglobin 12.8 g/dl (12.0-16.0); Imm Gran Abs Auto 0.02 X10*3/uL (0.00-0.03); Imm Gran Pct Auto 0.3 % (0.0-0.4); Lymphocytes Absolute Auto 2.3 X10*3/uL (1.2-4.9); Mean Corpuscular HGB Conc 31.8 g/dl (31.0-35.0); Mean Corpuscular Hemoglobin 28.1 pg (27.0-33.0); Mean Corpuscular Volume 88.4 fL (80.0-98.0); NRBC Abs Auto 0.000 X10*3/uL (0.0-0.012); NRBC Pct Auto 0.0 /100WBC (0.0-0.2); Platelet Count 311 X10*3/uL (160-400); Red Blood Count 4.55 X10*6/uL (4.20-5.50); White Blood Count 6.1 X10*3/uL (4.8-10.8)
[2025-01-07 11:07] LABS: Alanine Aminotransferase 15 U/L (0-31); Albumin Level 4.4 g/dL (3.5-5.0); Alkaline Phosphatase 108 U/L (39-117); Anion Gap 7 (12-20); Aspartate Amino Transferase 21 U/L (5-31); Blood Urea Nitrogen 11 mg/dL (9-16); Calcium 9.0 mg/dL (8.4-10.2); Carbon Dioxide 29 mmol/L (22-29); Chloride 108 mmol/L (96-108); Cholesterol 203 mg/dL (<200); Estimated Glomerular Filt Rate > 60; HDL Cholesterol 59 mg/dL (>40); Iron 93 mcg/dL (30-160); Percent Iron Saturation 27 % (15-50); Potassium 4.1 mmol/L (3.3-5.1); Sodium 140 mmol/L (135-145); Total Iron Binding Capacity 340 mcg/dL (228-428); Total Protein 7.5 g/dL (6.5-8.0); Triglycerides 69 mg/dL (<150); Unsaturated Iron Binding 247 ug/dL
[2025-01-07 11:24] LABS: Ferritin 16 ng/mL (10-250)
[2025-01-07 11:35] LABS: Folate 10.1 ng/mL (> or = 4.0); Vitamin B12 258 pg/mL (200-900)
== END 2025-01-07 09:46 | disposition home or self-care (01) ==
LOC: HO.HKASLDS 09:45
PROVIDERS: PCP Physician Assistant; Visit Provider Physician Assistant Surgical
DX: K91.2 Postsurgical malabsorption, not elsewhere classified (principal); Z98.84 Bariatric surgery status
CPT/HCPCS: 36415; 80053; 80061; 82306; 82607; 82728; 82746; 83525; 83540; 84425; 84443; 84590; 84630; 85025; 86140

== ENCOUNTER 2025-01-21 10:31 | Outpatient (REF) | payer MEDICAID, SELFPAY | END 2025-01-21 10:32 | disposition home or self-care (01) | LOC: HO.LNP 10:31 | PROVIDERS: PCP Physician Assistant; Visit Provider Physician Assistant Surgical | DX: Z11.0 Encounter for screening for intestinal infectious diseases (principal) | CPT/HCPCS: 83013 ==